=== PATIENT | female | born 1975 | race Caucasian/White ===

== ENCOUNTER → 2020-12-09 16:44 | Outpatient (BNVA) | payer BC, SELFPAY | PROVIDERS: Visit Provider Nurse Practitioner Family | DX: I25.10 Atherosclerotic heart disease of native coronary artery without angina pectoris (principal); E11.9 Type 2 diabetes mellitus without complications; Z12.39 Encounter for other screening for malignant neoplasm of breast; Z79.4 Long term (current) use of insulin; E78.5 Hyperlipidemia, unspecified; I10 Essential (primary) hypertension; Z12.31 Encounter for screening mammogram for malignant neoplasm of breast | CPT/HCPCS: 80053; 80061; 81015; 82043; 82607; 83036; 84443; 85025 ==

== ENCOUNTER 2021-01-13 12:49 | Emergency (ER) | payer BC, SELFPAY ==
[2021-01-13 12:54] VITALS: BP 157/89; PULSE 83; RESP 18; TEMP 36.9; O2SAT 98; BMI 34.7
--- NOTE | 2021-01-13 13:08 | XRR_ITS ---
PROCEDURE INFORMATION: Exam: XR Chest Exam date and time: 01/13/2021 1:22 PM Age: 45 years old Clinical indication: Chest pain; Type not specified; Prior surgery; Surgery type: Stent TECHNIQUE: Imaging protocol: XR of the chest. Views: 1 view. COMPARISON: No relevant prior studies available. FINDINGS: Lungs: Hyperinflation , without acute airspace disease. Pleural spaces: No pleural effusion. Heart/Mediastinum: Normal configuration of the heart. Bones/joints: Mild degenerative change. XR/XR chest 1V portable [id number] IMPRESSION: No acute airspace or pleural disease.
--- NOTE | 2021-01-13 13:08 | ECG_ITS ---
[facility] Test Date: 2021-01-13 Pat Name: Beata Rhodes Department: Room: Gender: Female Unit Secy: : 1975 Requested By: Jerome Soto Order Number: [id number] Srinivas MD: Noah Bond M.D. Measurements Intervals [place] Rate: 81 P: 65 MD: 147 QRS: 26 QRSD: 94 T: 70 QT: 352 QTc: 410 Interpretive Statements SINUS RHYTHM LOW QRS VOLTAGE IN PRECORDIAL LEADS [QRS DEFLECTION < 1.0 mV IN CHEST LEADS] No previous ECG available for comparison Electronically Signed On 01-13-2021 20:10:49 CDT by Noah Bond M.D. [id number]
--- NOTE | 2021-01-13 13:25 | W.ED.CHESTPA ---
HPI - Chest Pain General: Chief Complaint: Chest Pain Stated Complaint: Chest Pains Time Seen by Provider: 01/13/21 13:06 History of Present Illness: HPI narrative: 45-year-old female comes in complaining chest pain began while at rest. Began this morning around 8:00 she denies nausea vomiting or diarrhea no shortness of breath associated with it. Symptoms anything that makes it better or worse now. She had coronary artery stent placed by [facility] approximately a year and a half ago. MD complaint: chest pain Pertinent past history: coronary artery disease Onset (ago): hour(s) Timing of current episode: episodic Prior episodes: Yes Onset: during rest Pain location: substernal and left chest Pain radiation: none Severity: mild Quality: tightness and aching Relieving factors: nothing Exacerbating factors: nothing Associated symptoms: Deny abdominal pain, diaphoresis, dyspnea, fever(s), leg edema, nausea, palpitations, sense of impending doom, syncope or vomiting Treatment prior to arrival: none Review of Systems Const: Denies: fever(s) or diaphoresis ENMT: Denies: throat pain, ear or mastoid pain, nasal discharge or nasal congestion Card: Denies: palpitations or syncope Resp: Denies: dyspnea GI: Denies: abdominal pain, nausea or vomiting : Denies: flank pain, difficulty voiding, dysuria, urinary frequency or urinary urgency Skin/Breast: Denies: rash or pruritus PFSH ED PFSH: Medical History CAD (coronary artery disease) Hyperlipidemia Hypertension Surgical History Hx of section Hx of cholecystectomy (~09/2008) Hx of coronary angioplasty (~09/2019) Family History Father Diabetes Hypertension Hyperlipidemia Mother Lung disease Hypertension Denies family history of Clotting disorder Bleeding disorder Stroke Social History Smoking and tobacco status: former smoker Quit status (tobacco): has quit using tobacco Year quit tobacco: 1997 Former quit date comment: smoked 0.5 PPD x 3 yrs Second hand smoke exposure: No Alcohol intake: current Alcohol intake frequency: holidays/special occasions only Caregiver/support person: Yes Lives independently: Yes Household members: significant other Marital status: Life Partner service: No Current occupational status: unemployed History of recent travel: Yes Details: moved from [place] approx. 1 month Out of state: Yes Current gender identity: Female Special malina needs: No Agree to transfusion: Yes Physical Exam Const: COMMON NORMALS: no acute distress GENERAL APPEARANCE: cooperative and comfortable ORIENTATION/CONSCIOUSNESS: Yes awake, Yes oriented to person, Yes oriented to place and Yes oriented to time HENMT: COMMON NORMALS: normocephalic, atraumatic and hearing grossly normal bilaterally HEAD & SCALP: normocephalic and atraumatic Neck/C-Spine: COMMON NORMALS: no JVD Resp: COMMON NORMALS: normal respiratory effort, No retractions, No use of accessory muscles and clear to auscultation bilaterally AUSCULTATION: clear to auscultation bilaterally Cardio: COMMON NORMALS: no JVD, regular rate, regular rhythm and No murmurs present (Cardio) RATE: regular rate RHYTHM: regular rhythm GI: COMMON NORMALS: Soft to palpation and No hepatosplenomegaly present AUSCULTATION: Yes normoactive bowel sounds PALPATION: Yes Soft to palpation, No Tenderness to palpation present (GI), No Guarding due to palpation present (GI) and Yes No hepatosplenomegaly present Extremity: COMMON NORMALS: normal to inspection, capillary refill normal, no clubbing, cyanosis or edema, no calf tenderness and no pedal edema Neuro: SENSORIUM/ORIENTATION: Yes oriented to person, Yes oriented to place and Yes oriented to time Skin: COMMON NORMALS: no rashes or lesions noted GENERAL SKIN EXAM: no rashes or lesions noted Course Vital Signs: Vital signs: Vital Signs Temperature 98.5 F 01/13/21 12:54 Pulse Rate 74 01/13/21 15:07 Respiratory Rate 18 01/13/21 15:07 Blood Pressure 195/102 01/13/21 15:07 Pulse Oximetry 97 01/13/21 15:07 MDM - Chest Pain MDM Narrative: Medical decision making narrative: Patient had a stress test within the last year that she reports was normal. She is not having any further pain now EKGs and troponins are unremarkable we will get a go and discharge her home for blood pressure is still elevated will add isosorbide mononitrate. If she has any worsening or change symptoms return to the emergency room. She is supposed to be seeing Dr. Menon in follow-up, will have case management help expedite. Lab Data: Labs: Lab Results 01/13/21 01/13/21 01/13/21 Range/Units 13:40 13:40 13:40 WBC 7.0 (4.0-10.0) 10^3/ uL RBC 3.72 L (4.1-5.3) 10^6/u L Hgb 11.3 L (11.5-15.3) g/dL Hct 34.3 L (37.0-47.0) % MCV 92.2 (81-99) fL MCH 30.4 (28.0-34.0) pg MCHC 32.9 (30.0-36.0) g/dL RDW 11.8 L (12.1-15.1) % Plt Count 312 (130-400) 10^3/c mm MPV 10.7 H (7.4-10.4) fL Neut % (Auto) 70.7 % Lymph % (Auto) 18.3 % [place] % (Auto) 6.4 % Eos % (Auto) 3.6 % Baso % (Auto) 0.9 % Neut # (Auto) 4.96 (1.8-7.7) 10^3/u L Lymph # (Auto) 1.3 (0.8-4.8) 10^3/u L [place] # (Auto) 0.5 (0.2-0.9) 10^3/u L Eos # (Auto) 0.3 (0.0-0.8) 10^3/u L Baso # (Auto) 0.1 (0.0-0.1) 10^3/u L Nucleated RBC % (a uto) 0 % Nucleated RBCs # 0.0 /100WBC Sodium 132 L (136-145) mmol/L Potassium 4.3 (3.5-5.1) mmol/L Chloride 98 (98-107) mmol/L Carbon Dioxide 23 (22-29) mmol/L Anion Gap 15.3 (5-19) BUN 26 H (6-20) mg/dL Creatinine 1.3 H (0.5-0.9) mg/dL GFR Calculation 44.1 L (90-130) mL/min Glucose 368 H (65-115) mg/dL Calculated Osmolal ity 294 (285-295) mOsm/k g Calcium 8.6 (8.5-10.5) mg/dL Total Bilirubin 0.3 (0.15-1.2) mg/dL AST 11 (0-32) U/L ALT 13 (0-33) U/L Alkaline Phosphata se 94 (35-105) IU/L Troponin T Baselin e 22 H (0-10) ng/L Troponin T 120 Min [place] (0-10) ng/L Delta Troponin T (0-10) ABS# Total Protein 6.3 L (6.6-8.7) g/dL Albumin 3.6 (3.5-5.2) g/dL Globulin 2.7 (1.3-4.6) g/dL 01/13/21 Range/Units 15:50 WBC (4.0-10.0) 10^3/ uL RBC (4.1-5.3) 10^6/u L Hgb (11.5-15.3) g/dL Hct (37.0-47.0) % MCV (81-99) fL MCH (28.0-34.0) pg MCHC (30.0-36.0) g/dL RDW (12.1-15.1) % Plt Count (130-400) 10^3/c mm MPV (7.4-10.4) fL Neut % (Auto) % Lymph % (Auto) % [place] % (Auto) % Eos % (Auto) % Baso % (Auto) % Neut # (Auto) (1.8-7.7) 10^3/u L Lymph # (Auto) (0.8-4.8) 10^3/u L [place] # (Auto) (0.2-0.9) 10^3/u L Eos # (Auto) (0.0-0.8) 10^3/u L Baso # (Auto) (0.0-0.1) 10^3/u L Nucleated RBC % (a uto) % Nucleated RBCs # /100WBC Sodium (136-145) mmol/L Potassium (3.5-5.1) mmol/L Chloride (98-107) mmol/L Carbon Dioxide (22-29) mmol/L Anion Gap (5-19) BUN (6-20) mg/dL Creatinine (0.5-0.9) mg/dL GFR Calculation (90-130) mL/min Glucose (65-115) mg/dL Calculated Osmolal ity (285-295) mOsm/k g Calcium (8.5-10.5) mg/dL Total Bilirubin (0.15-1.2) mg/dL AST (0-32) U/L ALT (0-33) U/L Alkaline Phosphata se (35-105) IU/L Troponin T Baselin e (0-10) ng/L Troponin T 120 Min [place] 20.85 H (0-10) ng/L Delta Troponin T -1.15 L (0-10) ABS# Total Protein (6.6-8.7) g/dL Albumin (3.5-5.2) g/dL Globulin (1.3-4.6) g/dL Discharge Plan Discharge Patient Disposition: Home Clinical Impression: CAD (coronary artery disease), Type 2 diabetes mellitus Condition: Stable Prescriptions: New isosorbide mononitrate 30 mg tablet extended release 24 hr 30 mg PO DAILY Qty: 30 RF: 0 No Action Basaglar KwikPen U-100 Insulin 100 unit/mL (3 mL) insulin pen 20 unit SUBCUT BEDTIME RF: 0 insulin lispro [Admelog SoloStar U-100 Insulin] 100 unit/mL insulin pen 4 unit SUBCUT .WITH EACH MEAL RF: 0 Brilinta 90 mg tablet 90 mg PO Q12H Qty: 60 RF: 5 carvedilol [Coreg] 3.125 mg tablet 3.125 mg PO Q12H Qty: 60 RF: 5 carvedilol [Coreg] 6.25 mg tablet 6.25 mg PO Q12H Qty: 60 RF: 5 Aspir-81 81 mg Tablet,Delayed Release (Dr/Ec) 81 mg PO QAM RF: 0 atorvastatin 40 mg tablet 40 mg PO BEDTIME RF: 0 amlodipine 10 mg tablet 10 mg PO QAM RF: 0 hydrochlorothiazide 25 mg tablet 25 mg PO QAM RF: 0 lisinopril 40 mg tablet 40 mg PO QAM RF: 0 Discharge Orders: Discharge ED (Routine); Ordered 01/13/21 Ordered By: Jerome Velázquez Discharge Diet: Usual diet Discharge Activity: Limit activity as instructed Patient Instructions: Opioid Safety Activity Restrictions/Additional Instructions: His management will help you get into see Dr. Menon. 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
[2021-01-13 13:34] VITALS: BP 159/100; PULSE 84; PULSE 86; RESP 18; O2SAT 96
[2021-01-13 13:55] LABS: Basophils # 0.1 10^3/uL (0.0-0.1); Basophils % 0.9 %; Eosinophils # 0.3 10^3/uL (0.0-0.8); Eosinophils % 3.6 %; Hematocrit 34.3 % (37.0-47.0); Hemoglobin 11.3 g/dL (11.5-15.3); Lymphocytes # 1.3 10^3/uL (0.8-4.8); Lymphocytes % 18.3 %; Mean Corpuscular HGB Conc 32.9 g/dL (30.0-36.0); Mean Corpuscular Hemoglobin 30.4 pg (28.0-34.0); Mean Corpuscular Volume 92.2 fL (81-99); Mean Platelet Volume 10.7 fL (7.4-10.4); Monocytes # 0.5 10^3/uL (0.2-0.9); Monocytes % 6.4 %; Neutrophils # 4.96 10^3/uL (1.8-7.7); Neutrophils % 70.7 %; Nucleated Red Blood Cells % 0 %; Platelet Count 312 10^3/cmm (130-400); Red Blood Count 3.72 10^6/uL (4.1-5.3); Red Cell Distribution Width 11.8 % (12.1-15.1)
[2021-01-13 14:07] LABS: Alanine Aminotransferase 13 U/L (0-33); Albumin Level 3.6 g/dL (3.5-5.2); Alkaline Phosphatase 94 IU/L (35-105); Anion Gap 15.3 (5-19); Aspartate Amino Transferase 11 U/L (0-32); Blood Urea Nitrogen 26 mg/dL (6-20); Calcium 8.6 mg/dL (8.5-10.5); Carbon Dioxide 23 mmol/L (22-29); Chloride 98 mmol/L (98-107); Globulin 2.7 g/dL (1.3-4.6); Glomerular Filtration Rate 44.1 mL/min (90-130); Glucose 368 mg/dL (65-115); Osmolality Calculated 294 mOsm/kg (285-295); Potassium 4.3 mmol/L (3.5-5.1); Sodium 132 mmol/L (136-145); Total Bilirubin 0.3 mg/dL (0.15-1.2); Total Protein 6.3 g/dL (6.6-8.7); Troponin(5th) Baseline 22 ng/L (0-10)
[2021-01-13 15:07] VITALS: BP 195/102; PULSE 74; RESP 18; O2SAT 97
--- NOTE | 2021-01-13 15:08 | ECG_ITS ---
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 Measurements Intervals [place] Rate: 70 P: 47 [place]: 160 QRS: 15 QRSD: 96 T: 45 QT: 370 QTc: 400 Interpretive Statements SINUS RHYTHM LOW QRS VOLTAGE IN PRECORDIAL LEADS [QRS DEFLECTION < 1.0 mV IN CHEST LEADS] No previous ECG available for comparison Electronically Signed On 01-13-2021 20:13:54 CDT by Noah Bond M.D. [id number]
[2021-01-13 16:29] LABS: Troponin 5 2HR 20.85 ng/L (0-10)
[2021-01-13 16:44] LABS: Troponin 5 2HR Delta -1.15 ABS# (0-10)
[2021-01-13 17:14] VITALS: BP 149/101; PULSE 77; RESP 18; O2SAT 97
== END 2021-01-13 17:19 | disposition home or self-care (01) ==
PROVIDERS: Emergency Provider Family Medicine
DX: I25.10 Atherosclerotic heart disease of native coronary artery without angina pectoris (principal); E11.9 Type 2 diabetes mellitus without complications; Z79.4 Long term (current) use of insulin; Z79.82 Long term (current) use of aspirin; E78.5 Hyperlipidemia, unspecified; I10 Essential (primary) hypertension; Z98.61 Coronary angioplasty status; Z87.891 Personal history of nicotine dependence
CPT/HCPCS: 36415; 71045; 80053; 84484; 85025; 93005; 99284

== ENCOUNTER 2021-03-10 06:55 | Outpatient (CLI) | payer OTHER, BC, MEDICAID, SELFPAY ==
[2021-03-10 07:12] VITALS: BMI 40.2
--- NOTE | 2021-03-10 07:12 | ECG_ITS ---
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 Interpretive Statements NAME OF STUDY: EXERCISE SESTAMIBI STRESS TEST INDICATION: Chest Pain Baseline blood pressure of 195/92 mm Hg, heart rate of 92 beats per minute and oxygen saturation of 98%. EKG showed normal sinus rhythm, normal axis with normal ST-Ts. The patient exercised for [4 minutes and 14 seconds] on a [standard Obi protocol]. Patient attained a maximum heart rate of 164 beats per minute( [94] % of the maximum predicted heart rate) with a blood pressure at the peak exercise of 258/70 mm Hg. The EKG at the peak exercise revealed sinus tachycardia with no significant ST-T changes. Patient did not have any chest pain or any significant arrhythmis with the exercise. The study was terminated due to high blood pressure and fatigue. During the recovery phase, there were no new changes. Blood pressure at the end of the recovery phase was 183/94 mm Hg with a heart rate of 100 beats per minute and oxygen saturation of 97%. CONCLUSION: 1. Normal EKG response to treadmill exercise. 2. No exercise-induced chest pain or cardiac arrhythmia. 3. Decreased exercise tolerance, attained a maximum of 7 METs. Maximum VO2 of 24.5 ml/kg/min. 4. Baseline marked hypertension with hypertensive response to exercise. 5. Exaggerated heart rate response to exercise. 6. Perfusion scan will be documented separately. Electronically Signed On 03-13-2021 13:29:13 CDT by Naz Torres M.D. [id number]
--- NOTE | 2021-03-10 07:12 | NMCV_ITS ---
NM sanju perf SPECT r/s* [id number] Beata Rhodes Age: 45 Gender: F : 1975 Exam Date: 03/10/2021 08:09 Ordering Phys: Naz Torres MD ([email or web address]) Technologist: REGI Vargas Exam Location: [facility] Indications: CHEST PAIN STRESS TEST Please see separate stress test report in [facility] for full findings IMAGE PROTOCOL Rest/Stress 1 Exercise Day Radiopharmaceutical Dose (mCi) Administration Site Administered by Rest: Tc-99m 10.9 IV REGI Kaplan Sestamibi Stress:Tc-99m 32.9 IV REGI Kaplan Sestamibi Rest: 10-Mar-2021 60 Discovery 630 Stress: 10-Mar-2021 15 Discovery 630 Radiopharmaceutical was injected at 85 % maximum heart rate. Images obtained in supine and prone position. SPECT RESULTS Technical Quality: Excellent Raw Data Analysis: Normal Image Corrections: No attenuation or motion correction applied Summed Stress Score: 5 Summed Rest Score: 1 Summed Difference Score: 4 PERFUSION FINDINGS Small sized perfusion abnormality of mild severity of mid inferior wall with reversibility noted in basal to apical inferior bella on stress images. There is somewhat improved tracer uptake in inferior wall on prone images. FUNCTIONAL RESULTS (calculated via Gated SPECT) Stress Image LV EF (%): 70 Stress EDV (mL):97 TID: 0.86 Stress ESV (mL):29 FUNCTIONAL FINDINGS: The left ventricle is normal in size. Transient Ischemia Dilatation of 0.86. There is normal left ventricular systolic function. The left ventricular ejection fraction is normal with a value of 70%. There is normal left ventricular wall thickening with no regional wall motion abnormality. IMPRESSIONS 1. Small sized reversible perfusion abnormality of mild severity of basal to apical inferior wall with improved tracer uptake on prone images. 2. This likely represents attenuation artifact. However, small area of ischemia in right coronary artery territory cannot be completely ruled out. 3. Overall left ventricular systolic function is normal without regional wall motion abnormalities. 4. The left ventricular ejection fraction is normal with a value of 70%. 5. Normal EKG response to exercise. Baseline hypertension with hypertensive response to exercise. Refer to separate report for details. Naz Torres MD (Electronically Signed) Final Date: 13 March 2021 13:40 S
[2021-03-10 09:20] VITALS: BP 183/94; PULSE 99
== END 2021-03-10 06:56 | disposition home or self-care (01) ==
LOC: RAD 06:57 → CDL 07:14
PROVIDERS: PCP Nurse Practitioner Family; Visit Provider Internal Medicine Cardiovascular Disease
DX: R07.9 Chest pain, unspecified (principal); I10 Essential (primary) hypertension
CPT/HCPCS: 78452; 93017; A9500

== ENCOUNTER → 2021-05-12 08:57 | Outpatient (BNVA) | payer BC, MEDICAID, SELFPAY | PROVIDERS: PCP Nurse Practitioner Family; Visit Provider Family Medicine Adult Medicine | DX: E11.22 Type 2 diabetes mellitus with diabetic chronic kidney disease; I12.9 Hypertensive chronic kidney disease with stage 1 through stage 4 chronic kidney disease, or unspecified chronic kidney disease; N18.30 Chronic kidney disease, stage 3 unspecified; E11.319 Type 2 diabetes mellitus with unspecified diabetic retinopathy without macular edema; E11.65 Type 2 diabetes mellitus with hyperglycemia; I25.10 Atherosclerotic heart disease of native coronary artery without angina pectoris; E78.5 Hyperlipidemia, unspecified; H35.30 Unspecified macular degeneration; Z79.4 Long term (current) use of insulin; Z68.41 Body mass index [BMI] 40.0-44.9, adult; F17.211 Nicotine dependence, cigarettes, in remission | CPT/HCPCS: 80053; 83036 ==

== ENCOUNTER → 2021-09-09 09:32 | Outpatient (BNVA) | payer BC, MEDICAID, SELFPAY | PROVIDERS: PCP Family Medicine Adult Medicine; Visit Provider Family Medicine Adult Medicine | DX: E11.22 Type 2 diabetes mellitus with diabetic chronic kidney disease; I12.9 Hypertensive chronic kidney disease with stage 1 through stage 4 chronic kidney disease, or unspecified chronic kidney disease; N18.30 Chronic kidney disease, stage 3 unspecified; E78.5 Hyperlipidemia, unspecified; Z79.4 Long term (current) use of insulin; E11.319 Type 2 diabetes mellitus with unspecified diabetic retinopathy without macular edema; E11.65 Type 2 diabetes mellitus with hyperglycemia | CPT/HCPCS: 80053; 80061; 83036; 85025 ==

== ENCOUNTER 2022-01-09 11:50 | Emergency (ER) | payer BC, MEDICAID, SELFPAY ==
[2022-01-09 11:56] VITALS: BP 186/92; PULSE 80; RESP 16; TEMP 36.9; O2SAT 98; BMI 42.0
--- NOTE | 2022-01-09 12:02 | ECG_ITS ---
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 Measurements Intervals [place] Rate: 70 P: 56 CT: 156 QRS: 23 QRSD: 85 T: 50 QT: 365 QTc: 395 Interpretive Statements SINUS RHYTHM Compared to ECG 01/13/2021 15:35:13 No significant changes Electronically Signed On 01-09-2022 16:01:17 CDT by Noah Bond M.D. [id number]
--- NOTE | 2022-01-09 12:02 | XR_ITS ---
WS: [id number] XR chest 1V portable [id number] REASON FOR EXAM: chest pain FINDINGS: The chest is unchanged compared to 01/13/2021. The heart and mediastinum are within normal limits. Calcified granulomatous disease bilaterally. No active pulmonary parenchymal or pleural disease. Mild to moderate generalized spondylosis in the mid and lower thoracic spine. XR/XR chest 1V portable [id number] IMPRESSION: No acute chest abnormality.
[2022-01-09 12:28] VITALS: BP 143/79; PULSE 68; RESP 16; O2SAT 99
--- NOTE | 2022-01-09 12:30 | PC.NURSE ---
PATIENT PLACED ON CARDIAC MONITORING, BP, AND O2
[2022-01-09 12:31] LABS: Basophils # 0.1 10^3/uL (0.0-0.1); Basophils % 0.9 %; Eosinophils # 0.5 10^3/uL (0.0-0.8); Eosinophils % 5.1 %; Hematocrit 36.7 % (37.0-47.0); Hemoglobin 11.7 g/dL (11.5-15.3); Lymphocytes # 1.4 10^3/uL (0.8-4.8); Lymphocytes % 14.1 %; Mean Corpuscular HGB Conc 31.9 g/dL (30.0-36.0); Mean Corpuscular Hemoglobin 29.4 pg (28.0-34.0); Mean Corpuscular Volume 92.2 fl (81-99); Mean Platelet Volume 10.8 fL (7.4-10.4); Monocytes # 0.6 10^3/uL (0.2-0.9); Monocytes % 5.8 %; Neutrophils # 7.51 10^3/uL (1.8-7.7); Neutrophils % 73.8 %; Nucleated Red Blood Cells % 0 %; Platelet Count 429 10^3/cmm (130-400); Red Blood Count 3.98 10^6/uL (4.1-5.3); Red Cell Distribution Width 13.1 % (12.1-15.1); White Blood Count 10.2 10^3/uL (4.0-10.0)
--- NOTE | 2022-01-09 12:44 | ED_ITS ---
HPI - Chest Pain General: Chief Complaint: Chest Pain Stated Complaint: cp Time Seen by Provider: 01/09/22 12:11 Source: patient Mode of arrival: ambulatory Limitations: no limitations History of Present Illness: 46-year-old female presents emergency room with complaints of chest pain. Her chest pain began around 3 AM this morning while she was sleeping at rest. Sharp chest pain on the left side there is no radiation of the pain she is taken a couple of nitro one earlier this morning another late this morning for which she came in did not really noticed any pain relief with that. She has known history of heart disease previous had an angiogram with stenting in 2019 pain continues to come and go without anything that seem to aggravate or relieve it. She not had a fever no cough no shortness of breath. MD complaint: chest pain Pertinent past history: coronary artery disease Onset (ago): hour(s) Timing of current episode: episodic Onset: during rest Pain location: substernal Pain radiation: none Severity: mild Quality: aching and heaviness Relieving factors: nothing Exacerbating factors: nothing Associated symptoms: Deny abdominal pain, dyspnea, fever(s), nausea or vomiting Review of Systems Const: Denies: fever(s), chills, body aches, change in appetite, fatigue or malaise ENMT: Denies: throat pain, ear or mastoid pain, nasal discharge or nasal congestion Card: Denies: chest pain, edema, dyspnea on exertion or orthopnea Resp: Denies: dyspnea, productive cough or non-productive cough GI: Denies: abdominal pain, nausea, vomiting, hematemesis, coffee ground emesis, diarrhea, constipation, bloating, hematochezia or melena : Denies: flank pain, difficulty voiding, dysuria, urinary frequency or urinary urgency Skin/Breast: Denies: rash or pruritus PFSH ED PFSH: Medical History CAD (coronary artery disease) CKD stage 3 secondary to diabetes Diabetic retinopathy associated with uncontrolled type 2 diabetes mellitus Hyperlipidemia Hypertension Macular degeneration of both eyes Surgical History Hx of section Hx of cholecystectomy (~09/2008) Hx of coronary angioplasty (~09/2019) Family History Father Diabetes Hypertension Hyperlipidemia Mother Lung disease Hypertension Denies family history of Clotting disorder Bleeding disorder Stroke Social History Quit status (tobacco): has quit using tobacco Year quit tobacco: 1997 Former quit date comment: smoked 0.5 PPD x 3 yrs Second hand smoke exposure: No Alcohol intake: current Alcohol intake frequency: holidays/special occasions only Caregiver/support person: Yes Lives independently: Yes Household members: significant other Marital status: Life Partner Number of children: 3 Number of grandchildren: 0 service: No Current occupational status: unemployed History of recent travel: Yes Details: moved from [place] approx. 1 month Out of state: Yes Current gender identity: Female Special malina needs: No Agree to transfusion: Yes Physical Exam Const: COMMON NORMALS: no acute distress GENERAL APPEARANCE: cooperative and comfortable ORIENTATION/CONSCIOUSNESS: Yes awake, Yes oriented to person, Yes oriented to place and Yes oriented to time HENMT: COMMON NORMALS: normocephalic, atraumatic and hearing grossly normal bilaterally HEAD & SCALP: normocephalic and atraumatic Eye: COMMON NORMALS: Equal, round and reactive pupils present, EOMs intact bilaterally, conjunctivae normal and no scleral icterus CONJUNCTIVA: Yes conjunctivae normal PUPIL: Yes Equal, round and reactive pupils present Neck/C-Spine: COMMON NORMALS: full ROM, no lymphadenopathy, supple and no JVD Lymph: LYMPHATIC: no lymphadenopathy noted and no lymphedema noted Resp: COMMON NORMALS: normal respiratory effort, No retractions, No use of accessory muscles and clear to auscultation bilaterally AUSCULTATION: clear to auscultation bilaterally Cardio: COMMON NORMALS: no JVD, regular rate, regular rhythm and No murmurs present (Cardio) RATE: regular rate RHYTHM: regular rhythm GI: COMMON NORMALS: Soft to palpation and No hepatosplenomegaly present AUSCULTATION: Yes normoactive bowel sounds PALPATION: Yes Soft to palpation, No Tenderness to palpation present (GI), No Guarding due to palpation present (GI) and Yes No hepatosplenomegaly present Extremity: COMMON NORMALS: normal to inspection, capillary refill normal, no clubbing, cyanosis or edema, no calf tenderness and no pedal edema Neuro: SENSORIUM/ORIENTATION: Yes oriented to person, Yes oriented to place and Yes oriented to time Skin: COMMON NORMALS: no rashes or lesions noted GENERAL SKIN EXAM: no rashes or lesions noted Course Vital Signs: Vital signs: Vital Signs Temperature 98.4 F 01/09/22 11:56 Pulse Rate 68 01/09/22 12:28 Respiratory Rate 16 01/09/22 12:28 Blood Pressure 143/79 01/09/22 12:28 Pulse Oximetry 99 01/09/22 12:28 MDM - Chest Pain Medical Decision Making Reviewed the chart. In March of last year patient had a stress test that showed what looked like an attenuation artifact there is a comment that it could be a RCA lesion. Called and discussed with one of the special effects specialist on-call. At this point repeating stress test probably would not be helpful. The way the test result is described he felt it was most likely an attenuation artifact and initially they would treat results like this medically like to have it at this point. I had a long discussion with the patient and her if she wanted to be more aggressive recommend that we go ahead and admit to the hospital and have cardiology reevaluate and see if they feel it is appropriate to do an angiogram. The other option is to adjust medications in this case would recomm end she stop her hydrochlorothiazide and will add Imdur 30 mg daily and have her follow-up with Dr. Torres next week. The patient is not anxious for more aggressive therapy and instead chooses outpatient option discussed with her that if she has any further symptoms should return immediately. Medical Records I reviewed the patient's medical records. Lab Data I reviewed the patient's lab results. : 01/09/22 12:22 01/09/22 12:54 Radiology Impressions Chest X-Ray 01/09/22 12:02 IMPRESSION: No acute chest abnormality. Laboratory Results WBC 10.2 10^3/uL (4.0-10.0) H 01/09/22 12:22 RBC 3.98 10^6/uL (4.1-5.3) L 01/09/22 12:22 Hgb 11.7 g/dL (11.5-15.3) 01/09/22 12:22 Hct 36.7 % (37.0-47.0) L 01/09/22 12:22 MCV 92.2 fl (81-99) 01/09/22 12:22 MCH 29.4 pg (28.0-34.0) 01/09/22 12:22 MCHC 31.9 g/dL (30.0-36.0) 01/09/22 12:22 RDW 13.1 % (12.1-15.1) 01/09/22 12:22 Plt Count 429 10^3/cmm (130-400) H 01/09/22 12:22 MPV 10.8 fL (7.4-10.4) H 01/09/22 12:22 Neut % (Auto) 73.8 % 01/09/22 12:22 Lymph % (Auto) 14.1 % 01/09/22 12:22 [place] % (Auto) 5.8 % 01/09/22 12: Eos % (Auto) 5.1 % 01/09/22 12:22 Baso % (Auto) 0.9 % 01/09/22 12:22 Neut # (Auto) 7.51 10^3/uL (1.8-7.7) 01/09/22 12:22 Lymph # (Auto) 1.4 10^3/uL (0.8-4.8) 01/09/22 12:22 [place] # (Auto) 0.6 10^3/uL (0.2-0.9) 01/09/22 12:22 Eos # (Auto) 0.5 10^3/uL (0.0-0.8) 01/09/22 12:22 Baso # (Auto) 0.1 10^3/uL (0.0-0.1) 01/09/22 12:22 Nucleated RBC % (auto) 0 % 01/09/22 12:22 Nucleated RBCs # 0.0 /100WBC 01/09/22 12:22 Sodium 135 mmol/L (136-145) L 01/09/22 12:54 Potassium 4.4 mmol/L (3.5-5.1) 01/09/22 12:54 Chloride 105 mmol/L (98-107) 01/09/22 12:54 Carbon Dioxide 18 mmol/L (22-29) L 01/09/22 12:54 Anion Gap 16.4 (5-19) 01/09/22 12:54 BUN 26 mg/dL (6-20) H 01/09/22 12:54 Creatinine 1.4 mg/dL (0.5-0.9) H 01/09/22 12:54 GFR Calculation 40.3 mL/min (90-130) L 01/09/22 12:54 Glucose 182 mg/dL (65-115) H 01/09/22 12:54 Calculated Osmolality 289 mOsm/kg (285-295) 01/09/22 12:54 Calcium 9.4 mg/dL (8.5-10.5) 01/09/22 12:54 Total Bilirubin 0.3 mg/dL (0.15-1.2) 01/09/22 12:54 AST 22 U/L (0-32) 01/09/22 12:54 ALT 26 U/L (0-33) 01/09/22 12:54 Alkaline Phosphatase 124 IU/L (35-105) H 01/09/22 12:54 Troponin T Baseline 16 ng/L (0-10) H 01/09/22 12:54 Troponin T 120 Minute 15.50 ng/L (0-10) H 01/09/22 15:24 Delta Troponin T -0.50 ABS# (0-10) L 01/09/22 15:24 NT-Pro-B Natriuret Pep 277 pg/mL (0-125) H 01/09/22 12:54 Total Protein 6.6 g/dL (6.6-8.7) 01/09/22 12:54 Albumin 3.6 g/dL (3.5-5.2) 01/09/22 12:54 Globulin 3.0 g/dL (1.3-4.6) 01/09/22 12:54 Lipase 62 U/L (13-60) H 01/09/22 12:54 Discharge Plan Discharge Patient Disposition: Home Clinical Impression: Chest pain, CAD (coronary artery disease), CKD stage 3 secondary to diabetes, Type 2 diabetes mellitus, Hyperlipidemia, Hypertension Condition: Stable Prescriptions: New isosorbide mononitrate 30 mg tablet extended release 24 hr 30 mg PO DAILY Qty: 30 0RF Discontinued hydrochlorothiazide 50 mg tablet 50 mg PO QAM Qty: 90 3RF No Action nitroglycerin [Nitrostat] 0.4 mg tablet, sublingual 0.4 mg sublingual Q5M PRN (Reason: chest pain) Qty: 30 6RF Rx Instructions: do not exceed 3 doses per episode atorvastatin 40 mg tablet 40 mg PO BEDTIME Qty: 30 5RF aspirin 81 mg tablet,delayed release (DR/EC) 81 mg PO QAM Qty: 30 5RF (DME) pen needle, diabetic [Pen Needle] 31 gauge x 5/16 needle See Rx Instructions .ROUTE .MEDSUPPLY Qty: 1200 0RF Rx Instructions: As directed carvedilol 12.5 mg tablet 12.5 mg PO BID Qty: 60 5RF Rx Instructions: must administer with a meal/food insulin aspart U-100 [Novolog Flexpen U-100 Insulin] 100 unit/mL (3 mL) in sulin pen 5 unit SUBCUT TID 90 Days Qty: 15 0RF amlodipine 10 mg tablet 10 mg PO DAILY 90 Days Qty: 90 3RF lisinopril 40 mg tablet 40 mg PO DAILY 90 Days Qty: 90 3RF Brilinta 90 mg tablet 90 mg PO Q12H Qty: 60 5RF Lantus Solostar U-100 Insulin 100 unit/mL (3 mL) insulin pen See Rx Instructions .ROUTE .COMPLEX Qty: 15 2RF Dose Instruction: INJECT 20 UNITS SUBCUTANEOUSLY ONCE DAILY AT BEDTIME Rx Instructions: INJECT 20 UNITS SUBCUTANEOUSLY ONCE DAILY AT BEDTIME metformin 500 mg tablet 500 mg PO BID 0RF Multivitamin Gummies 200 mcg Tablet,Chewable 1 tab PO DAILY 0RF Discharge Orders: Discharge ED (Routine); Ordered 01/09/22 Ordered By: Jerome Velázquez Referrals: Trenton De Jesus MD [Primary Care Provider] - Patient Instructions: Opioid Safety Activity Restrictions/Additional Instructions: Stop hydrochlorothiazide. Start isosorbide mononitrate once daily. Follow-up with Dr. Torres as soon as you are able next week. If you have recurrent chest pain return immediately to the emergency room. Coding Level of Care Code ED Production Planning Supervisor for Tonya Patel Exam Comprehensive
[2022-01-09 13:18] LABS: Troponin(5th) Baseline 16 ng/L (0-10)
[2022-01-09 13:34] LABS: Alanine Aminotransferase 26 U/L (0-33); Albumin Level 3.6 g/dL (3.5-5.2); Alkaline Phosphatase 124 IU/L (35-105); Anion Gap 16.4 (5-19); Aspartate Amino Transferase 22 U/L (0-32); Blood Urea Nitrogen 26 mg/dL (6-20); Calcium 9.4 mg/dL (8.5-10.5); Carbon Dioxide 18 mmol/L (22-29); Chloride 105 mmol/L (98-107); Glomerular Filtration Rate 40.3 mL/min (90-130); Glucose 182 mg/dL (65-115); Lipase 62 U/L (13-60); NT Pro B Type Natriuretic Pept 277 pg/mL (0-125); Osmolality Calculated 289 mOsm/kg (285-295); Potassium 4.4 mmol/L (3.5-5.1); Sodium 135 mmol/L (136-145); Total Bilirubin 0.3 mg/dL (0.15-1.2); Total Protein 6.6 g/dL (6.6-8.7)
--- NOTE | 2022-01-09 14:02 | ECG_ITS ---
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 Measurements Intervals [place] Rate: 67 P: 65 AR: 156 QRS: 7 QRSD: 95 T: 49 QT: 383 QTc: 405 Interpretive Statements SINUS RHYTHM Compared to ECG 01/09/2022 12:07:51 No significant changes Electronically Signed On 01-09-2022 16:05:54 CDT by Noah Bond M.D. [id number]
== END 2022-01-09 17:43 | disposition home or self-care (01) ==
PROVIDERS: Emergency Medicine; Emergency Provider Family Medicine; PCP Family Medicine Adult Medicine
DX: R07.9 Chest pain, unspecified (principal); I25.10 Atherosclerotic heart disease of native coronary artery without angina pectoris; N18.30 Chronic kidney disease, stage 3 unspecified; E11.9 Type 2 diabetes mellitus without complications; E78.5 Hyperlipidemia, unspecified; I10 Essential (primary) hypertension; Z87.891 Personal history of nicotine dependence
CPT/HCPCS: 36415; 71045; 80053; 83690; 83880; 84484; 85025; 93005; 99283

== ENCOUNTER → 2022-02-05 14:27 | Outpatient (BNVA) | payer BC, MEDICAID, SELFPAY | PROVIDERS: PCP Family Medicine Adult Medicine; Visit Provider Internal Medicine Cardiovascular Disease | DX: I25.10 Atherosclerotic heart disease of native coronary artery without angina pectoris (principal); I10 Essential (primary) hypertension; Z87.891 Personal history of nicotine dependence | CPT/HCPCS: 99214 ==

== ENCOUNTER 2022-04-16 16:20 | Emergency (ER) | payer BC, MEDICAID, SELFPAY ==
[2022-04-16 16:33] VITALS: BP 162/99; PULSE 73; RESP 16; TEMP 37; O2SAT 98
--- NOTE | 2022-04-16 17:43 | XRR_ITS ---
PROCEDURE INFORMATION: Exam: XR Chest Exam date and time: 04/16/2022 5:57 PM Age: 46 years old Clinical indication: Chest wall pain; Additional info: Chest pain TECHNIQUE: Imaging protocol: Radiologic exam of the chest. Views: 1 view. COMPARISON: CR XR chest 1V portable [id number] 01/09/2022 12:25 PM FINDINGS: Lungs: Unremarkable. No consolidation. Pleural spaces: Unremarkable. No pleural effusion. No pneumothorax. Heart/Mediastinum: Unremarkable. No cardiomegaly. Bones/joints: Mild leftward thoracic curvature. XR/XR chest 1V portable [id number] IMPRESSION: No acute finding.
--- NOTE | 2022-04-16 17:44 | ECG_ITS ---
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 Measurements Intervals [place] Rate: 70 P: 69 MI: 147 QRS: 32 QRSD: 90 T: 57 QT: 389 QTc: 420 Interpretive Statements SINUS RHYTHM Compared to ECG 01/09/2022 14:33:49 No significant changes Electronically Signed On 04-17-2022 17:09:54 CDT by Pavan Menon M.D. [email or web address] [email or web address] centerL[facility] [id number]
--- NOTE | 2022-04-16 18:04 | W.ED.CHESTPA ---
HPI - Chest Pain General: Chief Complaint: Chest Pain Stated Complaint: Chest Pain Time Seen by Provider: 04/16/22 17:42 Source: patient Mode of arrival: ambulatory Limitations: no limitations History of Present Illness: 46-year-old female states she started having some left-sided shoulder pain along with some fatigue last night. She states she is continue to have some pain she rates a 1-2 out of 10 she denies the pain being severe denies any radiation denies any shortness of breath. States she has had a history of heart disease in 1 to make sure her heart was okay. Associated symptoms: Deny abdominal pain, dyspnea, fever(s), nausea or vomiting Review of Systems Const: Denies: fever(s), chills, body aches or change in appetite Eyes: Denies: blurry vision or eye discomfort ENMT: Denies: throat pain or dental pain Card: Denies: chest pain Resp: Denies: dyspnea GI: Denies: abdominal pain, nausea, vomiting or diarrhea : Denies: dysuria Musc: Denies: neck pain or back pain Skin/Breast: Denies: rash Neuro: Denies: headache(s) Psych: Denies: depression Adan/Lymph: Denies: easy bruising All/Imm: Denies: urticaria PFSH ED PFSH: Medical History CAD (coronary artery disease) CKD stage 3 secondary to diabetes Diabetic retinopathy associated with uncontrolled type 2 diabetes mellitus Hyperlipidemia Hypertension Macular degeneration of both eyes Surgical History Hx of section Hx of cholecystectomy (~09/2008) Hx of coronary angioplasty (~09/2019) Family History Father Diabetes Hypertension Hyperlipidemia Mother Lung disease Hypertension Denies family history of Clotting disorder Bleeding disorder Stroke Social History Smoking and tobacco status: former smoker Quit status (tobacco): has quit using tobacco Year quit tobacco: 1997 Former quit date comment: smoked 0.5 PPD x 3 yrs Second hand smoke exposure: No Alcohol intake: current Alcohol intake frequency: holidays/special occasions only Caregiver/support person: Yes Lives independently: Yes Household members: significant other Marital status: Life Partner Number of children: 3 Number of grandchildren: 0 service: No Current occupational status: unemployed History of recent travel: Yes Details: moved from [place] approx. 1 month Out of state: Yes Current gender identity: Female Special malina needs: No Agree to transfusion: Yes Physical Exam Const: COMMON NORMALS: no acute distress, patient oriented x3 and healthy appearing HENMT: COMMON NORMALS: normocephalic and atraumatic HEAD & SCALP: normocephalic and atraumatic Eye: COMMON NORMALS: Equal, round and reactive pupils present and EOMs intact bilaterally PUPIL: Yes Equal, round and reactive pupils present Neck/C-Spine: COMMON NORMALS: full ROM and supple Chest: COMMONS NORMALS: normal inspection of the chest and normal palpation of entire chest wall Resp: COMMON NORMALS: normal respiratory effort, No retractions, No use of accessory muscles and clear to auscultation bilaterally AUSCULTATION: clear to auscultation bilaterally Cardio: COMMON NORMALS: regular rate, regular rhythm and No murmurs present (Cardio) RATE: regular rate RHYTHM: regular rhythm GI: COMMON NORMALS: Normal to inspection, nondistended, normoactive bowel sounds present, Soft to palpation, non-tender and no masses PALPATION: Yes Soft to palpation Extremity: COMMON NORMALS: normal to inspection and full ROM Neuro: COMMON NORMALS: patient oriented x3, moves all extremities and no focal motor deficits Psych: COMMON NORMALS: mental status grossly normal, Normal thought process present and cooperative THOUGHT PROCESS: Normal thought process present Skin: COMMON NORMALS: no rashes or lesions noted and no wounds GENERAL SKIN EXAM: no rashes or lesions noted Course Vital Signs: Vital signs: Vital Signs Temperature 98.6 F 04/16/22 16:33 Pulse Rate 72 04/16/22 20:54 Respiratory Rate 20 H 04/16/22 20:54 Blood Pressure 165/90 04/16/22 20:54 Pulse Oximetry 98 04/16/22 20:54 MDM - Chest Pain Medical Decision Making Patient presents here with chest pains atypical in nature her troponins here are normal she feels improved I feel she stable for discharge she is to follow-up with her strategy execution consultant outpatient return if worsening she understands and agrees to plan. Lab Data : 04/16/22 17:50 04/16/22 17:50 Radiology Impressions Chest X-Ray 04/16/22 17:43 IMPRESSION: No acute finding. Laboratory Results WBC 8.6 10^3/uL (4.0-10.0) 04/16/22 17:50 RBC 3.98 10^6/uL (4.1-5.3) L 04/16/22 17:50 Hgb 11.7 g/dL (11.5-15.3) 04/16/22 17:50 Hct 35.5 % (37.0-47.0) L 04/16/22 17:50 MCV 89.2 fl (81-99) 04/16/22 17:50 MCH 29.4 pg (28.0-34.0) 04/16/22 17:50 MCHC 33.0 g/dL (30.0-36.0) 04/16/22 17:50 RDW 12.9 % (12.1-15.1) 04/16/22 17:50 Plt Count 370 10^3/cmm (130-400) 04/16/22 17:50 MPV 10.8 fL (7.4-10.4) H 04/16/22 17:50 Neut % (Auto) 71.9 % 04/16/22 17:50 Lymph % (Auto) 17.4 % 04/16/22 17:50 [place] % (Auto) 7.1 % 04/16/22 17:50 Eos % (Auto) 2.8 % 04/16/22 17:50 Baso % (Auto) 0.6 % 04/16/22 17:50 Neut # (Auto) 6.18 10^3/uL (1.8-7.7) 04/16/22 17:50 Lymph # (Auto) 1.5 10^3/uL (0.8-4.8) 04/16/22 17:50 [place] # (Auto) 0.6 10^3/uL (0.2-0.9) 04/16/22 17:50 Eos # (Auto) 0.2 10^3/uL (0.0-0.8) 04/16/22 17:50 Baso # (Auto) 0.1 10^3/uL (0.0-0.1) 04/16/22 17:50 Nucleated RBC % (auto) 0 % 04/16/22 17:50 Nucleated RBCs # 0.0 /100WBC 04/16/22 17:50 Sodium 133 mmol/L (136-145) L 04/16/22 17:50 Potassium 5.2 mmol/L (3.5-5.1) H 04/16/22 17:50 Chloride 101 mmol/L (98-107) 04/16/22 17:50 Carbon Dioxide 19 mmol/L (22-29) L 04/16/22 17:50 Anion Gap 18.2 (5-19) 04/16/22 17:50 BUN 19 mg/dL (6-20) 04/16/22 17:50 Creatinine 1.4 mg/dL (0.5-0.9) H 04/16/22 17:50 GFR Calculation 40.3 mL/min (90-130) L 04/16/22 17:50 Glucose 187 mg/dL (65-115) H 04/16/22 17:50 Calculated Osmolality 283 mOsm/kg (285-295) L 04/16/22 17:50 Calcium 8.8 mg/dL (8.5-10.5) 04/16/22 17:50 Total Bilirubin 0.3 mg/dL (0.15-1.2) 04/16/22 17:50 AST 16 U/L (0-32) 04/16/22 17:50 ALT 12 U/L (0-33) 04/16/22 17:50 Alkaline Phosphatase 106 IU/L (35-105) H 04/16/22 17:50 Troponin T Baseline 16 ng/L (0-10) H 04/16/22 17:50 Troponin T 120 Minute 14.10 ng/L (0-10) H 04/16/22 20:02 Delta Troponin T -1.90 ABS# (0-10) L 04/16/22 20:02 Total Protein 7.4 g/dL (6.6-8.7) 04/16/22 17:50 Albumin 3.9 g/dL (3.5-5.2) 04/16/22 17:50 Globulin 3.5 g/dL (1.3-4.6) 04/16/22 17:50 EKG Data EKG 1: I personally reviewed and interpreted this EKG as follows: EKG interpretation date: 04/16/22 EKG interpretation time: 17:29 Interpretation: nsr hr [address] or t wave abnormalities qrs 90 qtc 409 EKG 2: I personally reviewed and interpreted this EKG as follows: EKG interpretation date: 04/16/22 EKG interpretation time: 19:35 Interpretation: nsr hr [address] or t wave abnormalities qrs 85 qtc 388 Discharge Plan Discharge Patient Disposition: Home Clinical Impression: Chest pain Condition: Stable Prescriptions: No Action nitroglycerin [Nitrostat] 0.4 mg tablet, sublingual 0.4 mg sublingual Q5M PRN (Reason: chest pain) Qty: 30 6RF Rx Instructions: do not exceed 3 doses per episode aspirin 81 mg tablet,delayed release (DR/EC) 81 mg PO QAM Qty: 30 5RF (DME) pen needle, diabetic [Pen Needle] 31 gauge x 5/16 needle See Rx Instructions .ROUTE .MEDSUPPLY Qty: 1200 0RF Rx Instructions: As directed carvedilol 12.5 mg tablet 12.5 mg PO BID Qty: 60 5RF Rx Instructions: must administer with a meal/food isosorbide mononitrate 60 mg tablet extended release 24 hr 60 mg PO .COMPLEX Qty: 135 2RF Rx Instructions: 60 mg PO Take 1 in the morning and 1/2 tab in the evening; Take insulin aspart U-100 [Novolog Flexpen U-100 Insulin] 100 unit/mL (3 mL) insulin pen 5 unit SUBCUT TID 90 Days Qty: 15 0RF amlodipine 10 mg tablet 10 mg PO DAILY 90 Days Qty: 90 3RF lisinopril 40 mg tablet 40 mg PO DAILY 90 Days Qty: 90 3RF Brilinta 90 mg tablet 90 mg PO Q12H Qty: 60 5RF Lantus Solostar U-100 Insulin 100 unit/mL (3 mL) insulin pen See Rx Instructions .ROUTE .COMPLEX Qty: 15 2RF Dose Instruction: INJECT 20 UNITS SUBCUTANEOUSLY ONCE DAILY AT BEDTIME Rx Instructions: INJECT 20 UNITS SUBCUTANEOUSLY ONCE DAILY AT BEDTIME atorvastatin 40 mg tablet 40 mg PO BEDTIME Qty: 30 5RF metformin 500 mg tablet 500 mg PO BID 0RF Multivitamin Gummies 200 mcg Tablet,Chewable 1 tab PO DAILY 0RF Discharge Orders: Discharge ED (Routine); Ordered 04/16/22 Ordered By: Pa Reyes Referrals: Trenton De Jesus MD [Primary Care Provider] - Discharge Diet: Advance as tolerated Discharge Activity: Resume usual activity Patient Instructions: Chest Pain (ED) Coding Level of Care Code ED Motor Equipment Sergeant for Chg Fwd Exam Comprehensive
[2022-04-16 18:05] LABS: Basophils # 0.1 10^3/uL (0.0-0.1); Basophils % 0.6 %; Eosinophils # 0.2 10^3/uL (0.0-0.8); Eosinophils % 2.8 %; Hematocrit 35.5 % (37.0-47.0); Hemoglobin 11.7 g/dL (11.5-15.3); Lymphocytes # 1.5 10^3/uL (0.8-4.8); Lymphocytes % 17.4 %; Mean Corpuscular Hemoglobin 29.4 pg (28.0-34.0); Mean Corpuscular Volume 89.2 fl (81-99); Mean Platelet Volume 10.8 fL (7.4-10.4); Monocytes # 0.6 10^3/uL (0.2-0.9); Monocytes % 7.1 %; Neutrophils # 6.18 10^3/uL (1.8-7.7); Neutrophils % 71.9 %; Nucleated Red Blood Cells % 0 %; Platelet Count 370 10^3/cmm (130-400); Red Blood Count 3.98 10^6/uL (4.1-5.3); Red Cell Distribution Width 12.9 % (12.1-15.1); White Blood Count 8.6 10^3/uL (4.0-10.0)
[2022-04-16 18:15] VITALS: BP 167/80; PULSE 65; RESP 15; O2SAT 97
[2022-04-16] MEDS: aspirin 81 mg Chew Tablet 324 MG PO (18:19)
[2022-04-16 18:34] LABS: Troponin(5th) Baseline 16 ng/L (0-10)
[2022-04-16 18:36] LABS: Alanine Aminotransferase 12 U/L (0-33); Albumin Level 3.9 g/dL (3.5-5.2); Alkaline Phosphatase 106 IU/L (35-105); Blood Urea Nitrogen 19 mg/dL (6-20); Calcium 8.8 mg/dL (8.5-10.5); Carbon Dioxide 19 mmol/L (22-29); Chloride 101 mmol/L (98-107); Globulin 3.5 g/dL (1.3-4.6); Glomerular Filtration Rate 40.3 mL/min (90-130); Glucose 187 mg/dL (65-115); Osmolality Calculated 283 mOsm/kg (285-295); Sodium 133 mmol/L (136-145); Total Bilirubin 0.3 mg/dL (0.15-1.2); Total Protein 7.4 g/dL (6.6-8.7)
[2022-04-16 18:37] LABS: Anion Gap 18.2 (5-19); Aspartate Amino Transferase 16 U/L (0-32); Potassium 5.2 mmol/L (3.5-5.1)
--- NOTE | 2022-04-16 19:44 | ECG_ITS ---
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 Measurements Intervals [place] Rate: 66 P: 56 SC: 143 QRS: 8 QRSD: 85 T: 30 QT: 375 QTc: 393 Interpretive Statements SINUS RHYTHM Compared to ECG 01/09/2022 14:33:49 No significant changes Electronically Signed On 04-17-2022 17:15:56 CDT by Pavan Menon M.D. [id number]
[2022-04-16 20:54] VITALS: BP 165/90; PULSE 72; RESP 20; O2SAT 98
[2022-04-16 21:10] VITALS: BP 168/99; PULSE 79; RESP 19; O2SAT 99
== END 2022-04-16 21:12 | disposition home or self-care (01) ==
PROVIDERS: Family Medicine; Emergency Provider Emergency Medicine; PCP Family Medicine Adult Medicine
DX: R07.9 Chest pain, unspecified (principal); Z79.82 Long term (current) use of aspirin; Z79.84 Long term (current) use of oral hypoglycemic drugs; Z79.4 Long term (current) use of insulin; I25.10 Atherosclerotic heart disease of native coronary artery without angina pectoris; I12.9 Hypertensive chronic kidney disease with stage 1 through stage 4 chronic kidney disease, or unspecified chronic kidney disease; E11.22 Type 2 diabetes mellitus with diabetic chronic kidney disease; N18.30 Chronic kidney disease, stage 3 unspecified; E78.5 Hyperlipidemia, unspecified; Z87.891 Personal history of nicotine dependence
CPT/HCPCS: 71045; 80053; 84484; 85025; 93005; 99285

== ENCOUNTER → 2022-06-03 09:45 | Outpatient (BNVA) | payer BC, MEDICAID, SELFPAY | PROVIDERS: PCP Family Medicine Adult Medicine; Visit Provider Family Medicine Adult Medicine | DX: E11.22 Type 2 diabetes mellitus with diabetic chronic kidney disease (principal); N18.30 Chronic kidney disease, stage 3 unspecified; I12.9 Hypertensive chronic kidney disease with stage 1 through stage 4 chronic kidney disease, or unspecified chronic kidney disease; E78.5 Hyperlipidemia, unspecified; E11.319 Type 2 diabetes mellitus with unspecified diabetic retinopathy without macular edema; E11.65 Type 2 diabetes mellitus with hyperglycemia | CPT/HCPCS: 80053; 80061; 83036 ==

== ENCOUNTER 2022-07-18 14:12 | Emergency (ER) | payer BC, MEDICAID, SELFPAY ==
[2022-07-18 14:22] VITALS: BP 183/108; PULSE 79; RESP 18; O2SAT 99; BMI 40.2
--- NOTE | 2022-07-18 14:29 | XRR_ITS ---
PROCEDURE INFORMATION: Exam: XR Left Ankle Exam date and time: 07/18/2022 3:29 PM Age: 46 years old Clinical indication: Injury or trauma; Fall; Blunt trauma; Ankle; Left TECHNIQUE: Imaging protocol: Radiologic exam of the Left ankle. Views: 3 or more views. COMPARISON: No relevant prior studies available. FINDINGS: Bones/joints: Osseous structures are intact. Negative for fracture. Joint spaces are preserved. Soft tissues: Normal. XR/XR ankle LT min 3V* [id number] IMPRESSION: No acute findings.
--- NOTE | 2022-07-18 15:29 | XRR_ITS ---
PROCEDURE INFORMATION: Exam: XR Left Foot Exam date and time: 07/18/2022 3:33 PM Age: 46 years old Clinical indication: Injury or trauma; Fall; Blunt trauma; Foot; Left; Additional info: Pain TECHNIQUE: Imaging protocol: Radiologic exam of the Left foot. Views: 1 or 2 views. COMPARISON: CR (LOW EXM, ) 07/18/2022 3:29 PM FINDINGS: Bones/joints: Osseous structures are intact. Negative for fracture. Joint spaces are preserved. Soft tissues: Normal. XR/XR foot LT 2V [id number] IMPRESSION: No acute findings.
--- NOTE | 2022-07-18 16:11 | ED_ITS ---
HPI - Extremity Problem General: Chief complaint: Extremity Injury, Lower Stated complaint: Left ankle injury Time Seen by Provider: 07/18/22 16:11 History of Present Illness: 46-year-old female comes in today for evaluation of injury to the left ankle. Patient injured the ankle last Wednesday. Patient has continued swelling and bruising to the ankle and she was concerned that there may be a fracture. Patient appears nontoxic. Patient appears in mild to moderate pain. Associated symptoms: Deny chest pain Review of Systems General: Reports: 10 or more systems reviewed and unremarkable except in HPI and below Card: Denies: chest pain Resp: Denies: productive cough GI: Denies: vomiting Musc: Reports: extremity pain and extremity swelling PFS ED PFSH: Medical History CAD (coronary artery disease) CKD stage 3 secondary to diabetes Diabetic retinopathy associated with uncontrolled type 2 diabetes mellitus Hyperlipidemia Hypertension Macular degeneration of both eyes Surgical History Hx of section Hx of cholecystectomy (~09/2008) Hx of coronary angioplasty (~09/2019) Family History (Updated 06/03/22 @ 08:23 by Xiomara Richardson LPN) Father Diabetes Hypertension Hyperlipidemia CHF (congestive heart failure) Mother Lung disease asthma and due to copd Hypertension Denies family history of CAD (coronary artery disease) Clotting disorder Dementia Anesthesia complication Bleeding disorder Cancer Stroke Social History (Updated 06/03/22 @ 08:24 by Xiomara Richardson LPN) Smoking and tobacco status: never smoked Quit status (tobacco): has quit using tobacco Year quit tobacco: 1997 Former quit date comment: smoked 0.5 PPD x 3 yrs Second hand smoke exposure: No Alcohol intake: never Caregiver/support person: Yes Lives independently: Yes Household members: significant other Marital status: Life Partner Number of children: 3 Number of grandchildren: 0 Highest education level completed: High School Graduate service: No Current occupational status: unemployed Pets and animals: No History of recent travel: No Current gender identity: Female Kalyani/Rastafarian: None Special kalyani needs: No Agree to transfusion: Yes Female Reproductive History: Spontaneous abortions: No Physical Exam Const: COMMON NORMALS: alert HENMT: COMMON NORMALS: normocephalic HEAD & SCALP: normocephalic Neck/C-Spine: COMMON NORMALS: full ROM Resp: COMMON NORMALS: normal respiratory effort Cardio: COMMON NORMALS: regular rate RATE: regular rate GI: COMMON NORMALS: non-tender Extremity: LEFT LOWER EXTREMITY: Yes ankle joint (Medial swelling with ecchymosis) Left ankle: Yes inspection, Yes palpation and Yes ROM and Yes foot & digits (Swollen foot with ecchymosis on the medial aspect.) Left foot and digits: Yes inspection, Yes palpation and Yes ROM Neuro: SENSORIUM/ORIENTATION: Yes alert Skin: COMMON NORMALS: turgor normal GENERAL SKIN EXAM: turgor normal Course Vital Signs: Vital signs: Vital Signs Pulse Rate 79 07/18/22 14:22 Respiratory Rate 18 07/18/22 14:22 Blood Pressure 183/108 07/18/22 14:22 Pulse Oximetry 99 07/18/22 14:22 Oxygen Delivery Me thod 07/18/22 14:22 MDM - Extremity (Nontraumatic) Medical Decision Making 46-year-old female comes in today for complaints of injury to the left ankle and foot. 1 week ago patient had twisted her foot. Patient reports persistent swelling and ecchymosis to the foot. Patient denies any calf or posterior knee pain. Patient has normal range of motion except of the ankle due to swelling and pain. Pulses are intact. Sensation is intact. Differential diagnosis includes but not limited to fracture, sprain, DVT. No signs of DVT are noted at this time. Discussed with patient the red flags for DVT including calf pain and posterior knee pain along with increasing pain and swelling. Patient reported understanding and agreed to plan for treatment of ankle sprain after x-rays noted no fracture or dislocation. Lab Data Radiology Impressions Ankle X-Ray 07/18/22 14:29 IMPRESSION: No acute findings. Foot X-Ray 07/18/22 15:29 IMPRESSION: No acute findings. Discharge Plan Discharge Patient Disposition: Home Clinical Impression: Ankle sprain and strain Condition: Stable Prescriptions: New hydrocodone-acetaminophen 5-325 mg tablet 1 tab PO Q8H PRN (Reason: pain (scale score 7-10)) Qty: 7 0RF No Action amlodipine 10 mg tablet 10 mg PO DAILY 90 Days Qty: 90 3RF aspirin 81 mg tablet,delayed release (DR/EC) 81 mg PO QAM Qty: 30 5RF carvedilol 12.5 mg tablet 12.5 mg PO BID Qty: 60 5RF Lantus Solostar U-100 Insulin 100 unit/mL (3 mL) insulin pen See Rx Instructions .ROUTE .COMPLEX Qty: 15 5RF Dose Instruction: INJECT 20 UNITS SUBCUTANEOUSLY ONCE DAILY AT BEDTIME Rx Instructions: INJECT 20 UNITS SUBCUTANEOUSLY ONCE DAILY AT BEDTIME insulin aspart U-100 [Novolog Flexpen U-100 Insulin] 100 unit/mL (3 mL) insulin pen 5 unit SUBCUT TID 90 Days Qty: 15 5RF nitroglycerin [Nitrostat] 0.4 mg tablet, sublingual 0.4 mg sublingual Q5M PRN (Reason: chest pain) Qty: 30 6RF Rx Instructions: do not exceed 3 doses per episode Brilinta 90 mg tablet 90 mg PO Q12H Qty: 60 5RF isosorbide mononitrate 60 mg tablet extended release 24 hr 60 mg PO DAILY Qty: 30 5RF (DME) glucose test strips See Rx Instructions .Route .MEDSUPPLY Qty: 1 11RF Rx Instructions: As directed for checking glucose levels lisinopril 40 mg tablet 40 mg PO DAILY 90 Days Qty: 90 3RF atorvastatin 40 mg tablet 40 mg PO BEDTIME Qty: 30 5RF metformin 500 mg tablet See Rx Instructions .ROUTE .COMPLEX Qty: 60 5RF Dose Instruction: Take 1 tablet by mouth twice daily Rx Instructions: Take 1 tablet by mouth twice daily (DME) One touch Ultra 2 test strips See Rx Instructions .Route .MEDSUPPLY Qty: 1 11RF Rx Instructions: As directed (DME) pen needle, diabetic [Pen Needle] 31 gauge x 5/16 needle See Rx Instructions .ROUTE .MEDSUPPLY Qty: 1200 0RF Rx Instructions: As directed Multivitamin Gummies 200 mcg Tablet,Chewable 1 tab PO DAILY Discharge Orders: Discharge ED (Routine); Ordered 07/18/22 Ordered By: Fritz Winchester Referrals: Trenton De Jesus MD [Primary Care Provider] - Discharge Diet: Usual diet Discharge Activity: Increase activity as tolerated Patient Instructions: Ankle Sprain (ED), Opioid Safety Activity Restrictions/Additional Instructions: Elastic bandage until swelling improves. Use crutches until he can bear weight comfortably. Elevate foot is much as possible until swelling improves. Increase activity as tolerated. Follow-up with primary care as needed. Return to ER for calf pain or behind the knee pain or increasing redness and swelling to the lower extremity, or new concerns. Coding Level of Care Code ED Secondary English Teacher for Tonya Patel
[2022-07-18] MEDS: HYDROcodone-acetaminophen 5-325 mg Tablet 1 TAB PO (16:58)
== END 2022-07-18 17:00 | disposition home or self-care (01) ==
PROVIDERS: Emergency Provider Nurse Practitioner Family; PCP Family Medicine Adult Medicine
DX: S93.402A Sprain of unspecified ligament of left ankle, initial encounter (principal); S96.912A Strain of unspecified muscle and tendon at ankle and foot level, left foot, initial encounter; Z79.84 Long term (current) use of oral hypoglycemic drugs; Z79.82 Long term (current) use of aspirin; Z79.4 Long term (current) use of insulin; Z87.891 Personal history of nicotine dependence; I25.10 Atherosclerotic heart disease of native coronary artery without angina pectoris; E11.22 Type 2 diabetes mellitus with diabetic chronic kidney disease; I12.9 Hypertensive chronic kidney disease with stage 1 through stage 4 chronic kidney disease, or unspecified chronic kidney disease; N18.30 Chronic kidney disease, stage 3 unspecified; E78.5 Hyperlipidemia, unspecified; H35.30 Unspecified macular degeneration; X58.XXXA Exposure to other specified factors, initial encounter
CPT/HCPCS: 73610; 73620; 99283; E0114

== ENCOUNTER → 2022-11-26 11:40 | Outpatient (BNVA) | payer BC, MEDICAID, SELFPAY | PROVIDERS: PCP Family Medicine Adult Medicine; Visit Provider Family Medicine Adult Medicine | DX: E78.5 Hyperlipidemia, unspecified (principal); E11.39 Type 2 diabetes mellitus with other diabetic ophthalmic complication; I10 Essential (primary) hypertension; Z79.4 Long term (current) use of insulin; I25.10 Atherosclerotic heart disease of native coronary artery without angina pectoris; H35.30 Unspecified macular degeneration; E11.9 Type 2 diabetes mellitus without complications; N18.30 Chronic kidney disease, stage 3 unspecified; E11.22 Type 2 diabetes mellitus with diabetic chronic kidney disease | CPT/HCPCS: 80048; 80061; 83036; 83735; 83880 ==

== ENCOUNTER → 2023-11-03 09:37 | Outpatient (BNVA) | payer BC, MEDICAID, SELFPAY | PROVIDERS: PCP Family Medicine Adult Medicine; Visit Provider Family Medicine Adult Medicine | DX: R79.89 Other specified abnormal findings of blood chemistry (principal); Z98.49 Cataract extraction status, unspecified eye; E11.9 Type 2 diabetes mellitus without complications; I10 Essential (primary) hypertension; N18.30 Chronic kidney disease, stage 3 unspecified; E11.22 Type 2 diabetes mellitus with diabetic chronic kidney disease | CPT/HCPCS: 80053; 80061; 83036; 83880; 85025 ==

== ENCOUNTER 2024-02-08 08:31 | Emergency (ER) | payer BC, MEDICAID, SELFPAY ==
[2024-02-08] VITALS (7 sets, daily range): BP systolic 138–173; BP diastolic 83–99; PULSE 68–80; RESP 14–17; TEMP 36.8; O2SAT 96–98; BMI 36.2
--- NOTE | 2024-02-08 08:35 | XR_ITS ---
WS: [id number] PORTABLE CHEST HISTORY: dyspnea/cough COMPARISON: 04/16/2022 Mild pulmonary hyperinflation. No pleural effusion or pneumothorax. Cardiac size: Normal. Mediastinum/Aorta: Normal mediastinum. No osseous abnormality seen. XR/XR chest 1V portable [id number] IMPRESSION: Unremarkable portable chest.
--- NOTE | 2024-02-08 08:40 | ECG_ITS ---
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 Measurements Intervals [place] Rate: 72 P: 61 CT: 144 QRS: 17 QRSD: 98 T: 45 QT: 377 QTc: 413 Interpretive Statements SINUS RHYTHM LOW QRS VOLTAGE IN PRECORDIAL LEADS [QRS DEFLECTION < 1.0 mV IN CHEST LEADS] Compared to ECG 04/16/2022 19:35:32 Low QRS voltage now present Electronically Signed On 02-08-2024 22:48:27 CDT by Pavan Menon M.D. [id number]
[2024-02-08] MEDS: aspirin 81 mg Chew Tablet 324 MG PO (08:49)
[2024-02-08 08:55] LABS: Basophils % 0.4 %; Eosinophils # 0.3 10^3/uL (0.0-0.8); Eosinophils % 4.2 %; Hematocrit 36.5 % (36-47); Lymphocytes % 11.7 %; Mean Corpuscular HGB Conc 32.1 g/dL (30-55); Mean Corpuscular Hemoglobin 29.9 pg (27-33); Mean Corpuscular Volume 93.4 fl (85-98); Mean Platelet Volume 10.3 fL (7.4-10.4); Monocytes # 0.5 10^3/uL (0.2-0.9); Monocytes % 6.1 %; Neutrophils # 6.29 10^3/uL (1.8-7.7); Neutrophils % 77.2 %; Nucleated Red Blood Cells % 0 %; Platelet Count 280 10^3/cmm (157-399); Red Blood Count 3.91 10^6/uL (3.85-5.65); Red Cell Distribution Width 13.1 % (12.1-15.1); White Blood Count 8.14 10^3/uL (3.29-11.43)
--- NOTE | 2024-02-08 09:10 | ED_ITS ---
HPI - Chest Pain 2 General: Chief Complaint: Chest Pain Stated Complaint: chest pain Time Seen by Provider: 02/08/24 08:35 History of Present Illness: 48-year-old female with known history of coronary disease diabetes mellitus former smoker presents to the emergency room with chest pain rating up in the left neck that woke her up last night. She has noticed she has been more short of breath recently with activities but she has not had any chest pain associated with it she did take a nitro this morning with the episode of chest comfort she had that did not seem to improve things. She has no chest pain at this time. Associated symptoms: Deny abdominal pain, dyspnea or fever(s) Review of Systems 2 Const: Denies: fever(s) or chills Card: Denies: chest pain Resp: Denies: dyspnea GI: Denies: abdominal pain : Denies: dysuria, urinary frequency or urinary urgency Musc: Denies: neck pain or back pain Skin/Breast: Denies: rash PFSH ED 2 PFSH: Medical History Obesity (BMI 30-39.9) 2007 weight 400 pounds CKD stage 3 secondary to diabetes Macular degeneration of both eyes Diabetic retinopathy associated with uncontrolled type 2 diabetes mellitus Hypertension Hyperlipidemia CAD (coronary artery disease) single stent 2018 Surgical History S/P cataract surgery Hx of coronary angioplasty (~09/2019) Hx of cholecystectomy (~09/2008) Hx of section Family History Father Diabetes Hypertension Hyperlipidemia Congestive heart failure (CHF) Mother Lung disease asthma and due to copd Hypertension Denies family history of CAD (coronary artery disease) Clotting disorder Dementia Anesthesia complication Bleeding disorder Cancer Stroke Social History Smoking and tobacco/nicotine status: never used tobacco/nicotine Quit status (tobacco/nicotine): has quit using Year quit tobacco: 1997 Former quit date comment: smoked 0.5 PPD x 3 yrs Second hand smoke exposure: No Alcohol intake: never Substance/Drug Use: never Caregiver/support person: Yes Lives independently: Yes Household members: significant other Marital status: Life Partner Number of children: 3 Number of grandchildren: 0 Highest education level completed: High School Graduate service: No Current occupational status: unemployed Pets and animals: No Do you think of yourself as: Straight/Heterosexual Current gender identity: Female Kalyani/Uatsdin: None Special kalyani needs: No Agree to transfusion: Yes Female Reproductive History: Spontaneous abortions: No Physical Exam 2 Const: COMMON NORMALS: no acute distress GENERAL APPEARANCE: cooperative and comfortable ORIENTATION/CONSCIOUSNESS: Yes awake, Yes oriented to person, Yes oriented to place and Yes oriented to time HENMT: COMMON NORMALS: normocephalic, atraumatic and hearing grossly normal bilaterally HEAD & SCALP: normocephalic and atraumatic Resp: COMMON NORMALS: normal respiratory effort, No retractions, No use of accessory muscles and clear to auscultation bilaterally AUSCULTATION: clear to auscultation bilaterally Cardio: COMMON NORMALS: regular rate, regular rhythm and No murmurs present (Cardio) RATE: regular rate RHYTHM: regular rhythm GI: COMMON NORMALS: Soft to palpation and No hepatosplenomegaly present A USCULTATION: Yes normoactive bowel sounds PALPATION: Yes Soft to palpation, No Tenderness to palpation present (GI), No Guarding due to palpation present (GI) and Yes No hepatosplenomegaly present Extremity: COMMON NORMALS: normal to inspection, capillary refill normal, no clubbing, cyanosis or edema, no calf tenderness and no pedal edema Neuro: SENSORIUM/ORIENTATION: Yes oriented to person, Yes oriented to place and Yes oriented to time Skin: COMMON NORMALS: no rashes or lesions noted GENERAL SKIN EXAM: no rashes or lesions noted Course 2 Vital Signs: Vital signs: Vital Signs Temperature 98.2 F 02/08/24 08:44 Pulse Rate 72 02/08/24 11:00 Respiratory Rate 17 02/08/24 11:00 Blood Pressure 153/94 02/08/24 10:30 Pulse Oximetry 96 02/08/24 11:00 Oxygen Delivery Me thod Room Air 02/08/24 09:30 MDM - Chest Pain Medical Decision Making Take enzymes negative chest x-ray and EKG unremarkable no acute ST changes noted on EKG. Will discharge the patient home and increase her Imdur to 90 mg daily gave her an additional prescription for 30 mg tablets continue aspirin and other medication we [facility] return if she has further problems Medical Records I reviewed the patient's medical records. Lab Data I reviewed the patient's lab results. 02/08/24 08:49 02/08/24 08:49 Radiology Impressions Chest X-Ray 02/08/24 08:35 IMPRESSION: Unremarkable portable chest. Laboratory Results WBC 8.14 10^3/uL (3.29-11.43) 02/08/24 08:49 RBC 3.91 10^6/uL (3.85-5.65) 02/08/24 08:49 Hgb 11.70 g/dL (11.27-16.99) 02/08/24 08:49 Hct 36.5 % (36-47) 02/08/24 08:49 MCV 93.4 fl (85-98) 02/08/24 08:49 MCH 29.9 pg (27-33) 02/08/24 08:49 MCHC 32.1 g/dL (30-55) 02/08/24 08:49 RDW 13.1 % (12.1-15.1) 02/08/24 08:49 Plt Count 280 10^3/cmm (157-399) 02/08/24 08:49 MPV 10.3 fL (7.4-10.4) 02/08/24 08:49 Neut % (Auto) 77.2 % 02/08/24 08:49 Lymph % (Auto) 11.7 % 02/08/24 08:49 Nolan % (Auto) 6.1 % 02/08/24 08:49 Eos % (Auto) 4.2 % 02/08/24 08:49 Baso % (Auto) 0.4 % 02/08/24 08:49 Neut # (Auto) 6.29 10^3/uL (1.8-7.7) 02/08/24 08:49 Lymph # (Auto) 1.0 10^3/uL (0.8-4.8) 02/08/24 08:49 Nolan # (Auto) 0.5 10^3/uL (0.2-0.9) 02/08/24 08:49 Eos # (Auto) 0.3 10^3/uL (0.0-0.8) 02/08/24 08:49 Baso # (Auto) 0.0 10^3/uL (0.0-0.1) 02/08/24 08:49 Nucleated RBC % (auto) 0 % 02/08/24 08:49 Nucleated RBCs # 0.0 /100WBC 02/08/24 08:49 Sodium 135 mmol/L (136-145) L 02/08/24 08:49 Potassium 4.5 mmol/L (3.5-5.1) 02/08/24 08:49 Chloride 105 mmol/L (98-107) 02/08/24 08:49 Carbon Dioxide 19 mmol/L (22-29) L 02/08/24 08:49 Anion Gap 15.5 (5-19) 02/08/24 08:49 BUN 27 mg/dL (6-20) H 02/08/24 08:49 Creatinine 1.5 mg/dL (0.5-0.9) H 02/08/24 08:49 GFR Calculation 36.9 mL/min (90-130) L 02/08/24 08:49 Glucose 212 mg/dL (65-115) H 02/08/24 08:49 Calculated Osmolality 291 mOsm/kg (285-295) 02/08/24 08:49 Calcium 8.5 mg/dL (8.5-10.5) 02/08/24 08:49 Total Bilirubin 0.2 mg/dL (0.15-1.2) 02/08/24 08:49 AST 15 U/L (0-32) 02/08/24 08:49 ALT 13 U/L (0-33) 02/08/24 08:49 Alkaline Phosphatase 88 U/L (35-105) 02/08/24 08:49 Troponin T Baseline 14 ng/L (0-10) H 02/08/24 08:49 Troponin T 120 Minute 12.75 ng/L (0-10) H 02/08/24 10:56 Delta Troponin T -1.25 ABS# (0-10) L 02/08/24 10:56 Total Protein 6.4 g/dL (6.6-8.7) L 02/08/24 08:49 Albumin 3.3 g/dL (3.5-5.2) L 02/08/24 08:49 Globulin 3.1 g/dL (1.3-4.6) 02/08/24 08:49 All radiology interpretation(s) finalized by discharge Discharge Plan Discharge Patient Disposition: Home Clinical Impression: Chest pain, Diabetic retinopathy associated with uncontrolled type 2 diabetes mellitus CAD (coronary artery disease) Qualifiers: Coronary Disease-Associated Artery/Lesion type: [place] artery [place] vs. transplanted heart: [place] heart Associated angina: with stable angina Qualified Code(s): I25.118 - Atherosclerotic heart disease of [place] coronary artery with other forms of angina pectoris Condition: Stable Prescriptions: New isosorbide mononitrate 30 mg tablet extended release 24 hr 30 mg PO DAILY Qty: 30 0RF Continued isosorbide mononitrate 60 mg tablet extended release 24 hr 60 mg PO DAILY Qty: 90 3RF Rx Instructions: Take along with 30 mg tablets once a day No Action aspirin 81 mg tablet,delayed release (DR/EC) 81 mg PO QAM Qty: 100 3RF atorvastatin 40 mg tablet 40 mg PO BEDTIME Qty: 90 3RF carvedilol 12.5 mg tablet 12.5 mg PO BID Qty: 180 3RF hydrochlorothiazide 25 mg tablet 25 mg PO DAILY Qty: 90 3RF insulin aspart U-100 [Novolog FlexPen U-100 Insulin] 100 unit/mL (3 mL) insulin pen 5 unit SUBCUT TID 90 Days Qty: 15 5RF lisinopril 40 mg tablet 40 mg PO DAILY 90 Days Qty: 90 3RF metformin 500 mg tablet 500 mg PO BID Qty: 180 3RF nitroglycerin [Nitrostat] 0.4 mg tablet, sublingual 0.4 mg sublingual Q5M PRN (Reason: chest pain) Qty: 30 6RF Rx Instructions: do not exceed 3 doses per episode (DME) pen needle, diabetic [Pen Needle] 31 gauge x 5/16 needle See Rx Instructions .ROUTE .MEDSUPPLY Qty: 1200 0RF Rx Instructions: As directed Brilinta 90 mg tablet 90 mg PO BID Qty: 180 3RF amlodipine 10 mg tablet 10 mg PO DAILY 90 Days Qty: 90 3RF (DME) OneTouch Ultra Test Strip See Rx Instructions .ROUTE .COMPLEX Qty: 100 11RF Dose Instruction: TEST DIRECTED FOR GLUCOSE MEASURING Rx Instructions: TEST DIRECTED FOR GLUCOSE MEASURING Lantus Solostar U-100 Insulin 100 unit/mL (3 mL) insulin pen 20 unit SUBCUT BEDTIME Discharge Orders: Discharge ED (Routine); Ordered 02/08/24 Ordered By: Jerome Velázquez Referrals: Trenton De Jesus MD [Primary Care Provider] - Discharge Diet: Usual diet Discharge Activity: Limit activity as instructed Patient Instructions: Opioid Safety, Pain Management Activity Restrictions/Additional Instructions: Thank you for choosing [facility] for your healthcare needs today. Please realize this is an emergency room and that we are providing you with a medical screening exam and this may not be complete and all inclusive of all the testing and or work up that you may need to determine your ailment or severity of your illness. It is very important that you follow up as instructed or that you return to the Emergency Department should you have concerns or if your condition changes or worsens in any way. You were seen today for complaints of chest pain. Your cardiac enzymes and EKGs were normal. Recommend you increase your isosorbide mononitrate to 90 mg a day. You are given a second prescription for 30 mg tablets of the isosorbide take along with the 60 mg tablet you previously have been prescribed. Continue all of your other medications. Case management will set up a outpatient Lexiscan sestamibi stress test to further evaluate your heart. If you have worsening symptoms return to the emergency room Coding Level of Care Code ED Inside Sales Agent for Tonya Patel
[2024-02-08 09:16] LABS: Alanine Aminotransferase 13 U/L (0-33); Albumin Level 3.3 g/dL (3.5-5.2); Alkaline Phosphatase 88 U/L (35-105); Anion Gap 15.5 (5-19); Aspartate Amino Transferase 15 U/L (0-32); Blood Urea Nitrogen 27 mg/dL (6-20); Calcium 8.5 mg/dL (8.5-10.5); Carbon Dioxide 19 mmol/L (22-29); Chloride 105 mmol/L (98-107); Creatinine Clr Calc Pharmacy 47.2583; Globulin 3.1 g/dL (1.3-4.6); Glomerular Filtration Rate 36.9 mL/min (90-130); Glucose 212 mg/dL (65-115); Osmolality Calculated 291 mOsm/kg (285-295); Potassium 4.5 mmol/L (3.5-5.1); Sodium 135 mmol/L (136-145); Total Bilirubin 0.2 mg/dL (0.15-1.2); Total Protein 6.4 g/dL (6.6-8.7)
--- NOTE | 2024-02-08 09:34 | PC.PHAR ---
PT STATES SHE IS TAKING BRILINTA AND ASPIRIN, BOTH.
[2024-02-08 09:40] LABS: Troponin(5th) Baseline 14 ng/L (0-10)
--- NOTE | 2024-02-08 10:28 | ECG_ITS ---
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 Measurements Intervals [place] Rate: 68 P: 65 GA: 156 QRS: 36 QRSD: 94 T: 54 QT: 394 QTc: 420 Interpretive Statements SINUS RHYTHM LOW QRS VOLTAGE IN PRECORDIAL LEADS [QRS DEFLECTION < 1.0 mV IN CHEST LEADS] Compared to ECG 02/08/2024 08:40:17 No significant changes Electronically Signed On 02-08-2024 23:04:29 CDT by Pavan Menon M.D. [id number]
[2024-02-08 11:20] LABS: Troponin 5 2HR 12.75 ng/L (0-10)
[2024-02-08 11:22] LABS: Troponin 5 2HR Delta -1.25 ABS# (0-10)
--- NOTE | 2024-02-09 08:49 | DCPLANNER ---
order for tamiaan sent to scheduling
== END 2024-02-08 12:03 | disposition home or self-care (01) ==
PROVIDERS: Emergency Provider Family Medicine; PCP Family Medicine Adult Medicine
DX: R07.9 Chest pain, unspecified (principal); E11.319 Type 2 diabetes mellitus with unspecified diabetic retinopathy without macular edema; I25.118 Atherosclerotic heart disease of native coronary artery with other forms of angina pectoris; Z79.82 Long term (current) use of aspirin; Z79.4 Long term (current) use of insulin; Z79.84 Long term (current) use of oral hypoglycemic drugs; Z87.891 Personal history of nicotine dependence; E11.22 Type 2 diabetes mellitus with diabetic chronic kidney disease; I12.9 Hypertensive chronic kidney disease with stage 1 through stage 4 chronic kidney disease, or unspecified chronic kidney disease; N18.30 Chronic kidney disease, stage 3 unspecified; H35.30 Unspecified macular degeneration; E78.5 Hyperlipidemia, unspecified; I25.10 Atherosclerotic heart disease of native coronary artery without angina pectoris; Z98.61 Coronary angioplasty status
CPT/HCPCS: 36415; 71045; 80053; 84484; 85025; 93005; 99285

== ENCOUNTER → 2024-07-31 13:58 | Outpatient (BNVA) | payer BC, MEDICAID, SELFPAY | PROVIDERS: PCP Family Medicine Adult Medicine | DX: R41.3 Other amnesia (principal); I10 Essential (primary) hypertension; E11.39 Type 2 diabetes mellitus with other diabetic ophthalmic complication; Z79.4 Long term (current) use of insulin; E78.2 Mixed hyperlipidemia; R53.83 Other fatigue | CPT/HCPCS: 80053; 80061; 82306; 83036; 84439; 84443; 84481; 85025 ==

== ENCOUNTER 2024-08-16 15:22 | Outpatient (CLI) | payer BC, MEDICAID, SELFPAY ==
--- NOTE | 2024-08-16 16:02 | CT_ITS ---
WS: [id number] CT HEAD NONCONTRAST HISTORY: memory loss TECHNIQUE: Contiguous axial imaging performed through the brain. Bone and soft tissue windows. Sagitt al and coronal reformats reviewed. All CT scans at [facility] use at least one of these dose optimization techniques: automated exposure control; mA and/or kV adjustment per patient size (includ es targeted exams where dose is matched to clinical indication); or iterative reconstruction. DLP: 1061.68 mGy.cm COMPARISON: None available. No acute intracranial hemorrhage, midline shift or mass effect. Mild atrophy and mild small vessel disease. No prior infarct. No edema. Posterior fossa is negative. Ventricles: Normal size with no hydrocephalus. Paranasal sinuses: Small amount of mucoperiosteal thickening in the posterior RIGHT ethmoid air cells . Mastoid air cells: Well pneumatized. Calvarium and scalp: Skull is intact with no soft tissue edema or swelling. CT/CT head wo con* [id number] IMPRESSION: 1. No acute intracranial hemorrhage or edema. 2. Mild symmetric cerebral atrophy and small vessel disease. 3. No prior infarct.
== END 2024-08-16 15:23 | disposition home or self-care (01) ==
LOC: RAD 15:23
PROVIDERS: PCP Family Medicine Adult Medicine
DX: R41.3 Other amnesia (principal); R53.83 Other fatigue
CPT/HCPCS: 70450

== ENCOUNTER 2024-10-10 08:04 | Outpatient (CLI) | payer BC, MEDICAID, SELFPAY ==
[2024-10-10 09:02] LABS: Alanine Aminotransferase 10 U/L (0-33); Albumin Level 3.7 g/dL (3.5-5.2); Alkaline Phosphatase 106 U/L (35-105); Anion Gap 16.2 (5-19); Aspartate Amino Transferase 12 U/L (0-32); Blood Urea Nitrogen 28 mg/dL (6-20); Calcium 9.3 mg/dL (8.5-10.5); Carbon Dioxide 18 mmol/L (22-29); Chloride 108 mmol/L (98-107); Globulin 3.2 g/dL (1.3-4.6); Glomerular Filtration Rate 36.9 mL/min (90-130); Glucose 212 mg/dL (65-115); Osmolality Calculated 296 mOsm/kg (285-295); Potassium 5.2 mmol/L (3.5-5.1); Sodium 137 mmol/L (136-145); Total Bilirubin 0.2 mg/dL (0.15-1.2); Total Protein 6.9 g/dL (6.6-8.7)
== END 2024-10-10 08:05 | disposition home or self-care (01) ==
LOC: LAB 08:05
PROVIDERS: PCP Pediatrics; Visit Provider Pediatrics
DX: I10 Essential (primary) hypertension (principal)
CPT/HCPCS: 36415; 80053

== ENCOUNTER 2024-11-13 06:31 | Observation (INO) | payer BC, MEDICAID, SELFPAY ==
[2024-11-13] VITALS (18 sets, daily range): BP systolic 151–191; BP diastolic 76–98; PULSE 64–85; RESP 12–19; TEMP 36.6–36.8; O2SAT 98–100; BMI 32.9; BMI 33.3
--- NOTE | 2024-11-13 06:33 | XRR_ITS ---
PROCEDURE INFORMATION: Exam: XR Chest Exam date and time: 11/13/2024 6:47 AM Age: 49 years old Clinical indication: Sternal or substernal pain; Prior surgery; Surgery date: 6+ months; Surgery type: Cardiac stents; Additional info: Chest pain TECHNIQUE: Imaging protocol: Radiologic exam of the chest. Views: 1 view. COMPARISON: CR XR chest 1V portable [id number] 02/08/2024 8:42 AM FINDINGS: Lungs: Unremarkable. No consolidation. Pleural spaces: Unremarkable. No pleural effusion. No pneumothorax. Heart/Mediastinum: Unremarkable. No cardiomegaly. Bones/joints: Unremarkable. XR/XR chest 1V portable [id number] IMPRESSION: No acute findings.
--- NOTE | 2024-11-13 06:34 | W.ED.CHESTPA ---
HPI - Chest Pain General: Chief Complaint: Chest Pain Stated Complaint: cp,pain in left harm,numb and tingling in hand/arm Time Seen by Provider: 11/13/24 06:33 History of Present Illness: 49-year-old female with a known history of coronary artery disease. Over the last week she has had episodes of chest pain while at rest this morning she went into and woke her up she took 2 nitro for it had minimal relief eventually resolved spontaneously. The episodes been getting more intense. She also noticed chest pain with exertion. She denies any fever sweats or chills cough or cold. She has a known history of coronary artery disease and had previous stents placed several years ago while in [place]. Her last stress test was in March 2021. Associated symptoms: Deny abdominal pain, dyspnea or fever(s) Related Data Home Medications ?Medication ?Instructions ?Recorded ?Confirmed amlodipine 10 mg tablet 10 mg PO DAILY 11/13/24 11/13/24 atorvastatin 40 mg tablet 40 mg PO QPM 11/13/24 11/13/24 hydrochlorothiazide 25 mg tablet 25 mg PO DAILY 11/13/24 11/13/24 isosorbide mononitrate 60 mg 60 mg PO DAILY 11/13/24 11/13/24 tablet,extended release 24 hr lisinopril 40 mg tablet 40 mg PO DAILY 11/13/24 11/13/24 Previous Rx's ?Medication ?Instructions ?Recorded blood sugar diagnostic (OneTouch #100 ea 11/03/23 Ultra Test strips) insulin aspart U-100 100 unit/mL 5 unit (0.05 mL) SUBCUT TID 90 11/03/23 (3 mL) subcutaneous pen (Novolog days #15 mL FlexPen U-100 Insulin aspart) nitroglycerin 0.4 mg sublingual 0.4 mg sublingual Q5M PRN chest 11/03/23 tablet (Nitrostat) pain #30 tabs carvedilol 12.5 mg tablet 12.5 mg PO BID heart/blood 10/19/24 pressure #180 tabs ticagrelor 90 mg tablet (Brilinta) 90 mg PO BID circulation #180 tabs 10/19/24 insulin glargine 100 unit/mL (3 20 unit (0.2 mL) SUBCUT BEDTIME 11/13/24 mL) subcutaneous pen (Lantus #15 mL Solostar U-100 Insulin) pen needle, diabetic 31 gauge x #100 ea 11/13/24/16 (Pen Needle) Allergies Allergy/AdvReac Type Severity Reaction Status Date / Time No Known Allergies Allergy Verified 10/29/24 11:08 Review of Systems Const: Denies: fever(s) or chills Card: Reports: chest pain and dyspnea on exertion Resp: Denies: dyspnea GI: Denies: abdominal pain : Denies: dysuria, urinary frequency or urinary urgency Musc: Denies: neck pain or back pain Skin/Breast: Denies: rash PFSH ED PFSH: Medical History Fatigue Obesity (BMI 30-39.9) 2007 weight 400 pounds CKD stage 3 secondary to diabetes Macular degeneration of both eyes Diabetic retinopathy associated with uncontrolled type 2 diabetes mellitus Hypertension Hyperlipidemia CAD (coronary artery disease) single stent 2018 Surgical History S/P cataract surgery Hx of coronary angioplasty (~09/2019) Hx of cholecystectomy (~09/2008) Hx of section Family History Father Diabetes Hypertension Hyperlipidemia Congestive heart failure (CHF) Mother Lung disease asthma and due to copd Hypertension Denies family history of CAD (coronary artery disease) Clotting disorder Dementia Anesthesia complication Bleeding disorder Cancer Stroke Social History Smoking and tobacco/nicotine status: former use of tobacco/nicotine Quit status (tobacco/nicotine): has quit using Year quit tobacco: 1997 Former quit date comment: smoked 0.5 PPD x 3 yrs Second hand smoke exposure: No Alcohol intake: never Substance/Drug Use: never Caregiver/support person: Yes Lives independently: Yes Household members: significant other Marital status: Life Partner Number of children: 3 Number of grandchildren: 0 Highest education level completed: High School Graduate service: No Current occupational status: unemployed Pets and animals: No Do you think of yourself as: Straight/Heterosexual Current gender identity: Female Kalyani/Lutheran: None Special kalyani needs: No Agree to transfusion: Yes Female Reproductive History: Spontaneous abortions: No Physical Exam Const: GENERAL APPEARANCE: cooperative ORIENTATION/CONSCIOUSNESS: Yes awake, Yes oriented to person, Yes oriented to place and Yes oriented to time HENMT: COMMON NORMALS: normocephalic, atraumatic and hearing grossly normal bilaterally HEAD & SCALP: normocephalic and atraumatic Resp: COMMON NORMALS: normal respiratory effort, No retractions, No use of accessory muscles and clear to auscultation bilaterally AUSCULTATION: clear to auscultation bilaterally Cardio: COMMON NORMALS: regular rate, regular rhythm and No murmurs present (Cardio) RATE: regular rate RHYTHM: regular rhythm GI: COMMON NORMALS: Soft to palpation and No hepatosplenomegaly present AUSCULTATION: Yes normoactive bowel sounds PALPATION: Yes Soft to palpation, No Tenderness to palpation present (GI), No Guarding due to palpation present (GI) and Yes No hepatosplenomegaly present Extremity: COMMON NORMALS: normal to inspection, capillary refill normal, no clubbing, cyanosis or edema, no calf tenderness and no pedal edema Neuro: SENSORIUM/ORIENTATION: Yes oriented to person, Yes oriented to place and Yes oriented to time OTHER: No neurologic deficits no lateralizing deficits Skin: COMMON NORMALS: no rashes or lesions noted GENERAL SKIN EXAM: no rashes or lesions noted Course Vital Signs: Vital signs: Vital Signs Temperature 98.2 F 11/13/24 06:35 Pulse Rate 77 11/13/24 10:30 Respiratory Rate 14 11/13/24 10:30 Blood Pressure 176/98 11/13/24 10:30 Pulse Oximetry 100 11/13/24 10:30 Oxygen Delivery Me thod Room Air 11/13/24 10:30 MDM - Chest Pain Medical Decision Making Symptoms resolved the time she arrived here she described numbness and tingling in the left arm on exam there are no neurologic deficits. Concerning with the escalating angina, both at rest and with exertion. Will admit to [facility] discussed with cardiology they will consult on the patient admit to hospitalist orders written Medical Records I reviewed the patient's medical records. Lab Data I reviewed the patient's lab results. 11/13/24 06:45 11/13/24 06:45 Radiology Impressions Chest X-Ray 11/13/24 06:33 IMPRESSION: No acute findings. Laboratory Results WBC 5.94 10^3/uL (3.29-11.43) 11/13/24 06:45 RBC 3.73 10^6/uL (3.85-5.65) L 11/13/24 06:45 Hgb 11.20 g/dL (11.27-16.99) L 11/13/24 06:45 Hct 36.2 % (36-47) 11/13/24 06:45 MCV 97.1 fl (85-98) 11/13/24 06:45 MCH 30.0 pg (27-33) 11/13/24 06:45 MCHC 30.9 g/dL (30-55) 11/13/24 06:45 RDW 13.2 % (12.1-15.1) 11/13/24 06:45 Plt Count 329 10^3/cmm (157-399) 11/13/24 06:45 MPV 9.7 fL (7.4-10.4) 11/13/24 06:45 Neut % (Auto) 69.9 % 11/13/24 06:45 Lymph % (Auto) 15.8 % 11/13/24 06:45 Irwin % (Auto) 7.9 % 11/13/24 06:45 Eos % (Auto) 5.2 % 11/13/24 06:45 Baso % (Auto) 1.0 % 11/13/24 06:45 Neut # (Auto) 4.15 10^3/uL (1.8-7.7) 11/13/24 06:45 Lymph # (Auto) 0.9 10^3/uL (0.8-4.8) 11/13/24 06:45 Irwin # (Auto) 0.5 10^3/uL (0.2-0.9) 11/13/24 06:45 Eos # (Auto) 0.3 10^3/uL (0.0-0.8) 11/13/24 06:45 Baso # (Auto) 0.1 10^3/uL (0.0-0.1) 11/13/24 06:45 Nucleated RBC % (auto) 0 % 11/13/24 06:45 Nucleated RBCs # 0.0 /100WBC 11/13/24 06:45 Sodium 136 mmol/L (136-145) 11/13/24 06:45 Potassium 4.7 mmol/L (3.5-5.1) 11/13/24 06:45 Chloride 105 mmol/L (98-107) 11/13/24 06:45 Carbon Dioxide 18 mmol/L (22-29) L 11/13/24 06:45 Anion Gap 17.7 (5-19) 11/13/24 06:45 BUN 31 mg/dL (6-20) H 11/13/24 06:45 Creatinine 1.3 mg/dL (0.5-0.9) H 11/13/24 06:45 GFR Calculation 43.4 mL/min (90-130) L 11/13/24 06:45 Glucose 158 mg/dL (65-115) H 11/13/24 06:45 Calculated Osmolality 292 mOsm/kg (285-295) 11/13/24 06:45 Calcium 9.3 mg/dL (8.5-10.5) 11/13/24 06:45 Total Bilirubin 0.2 mg/dL (0.15-1.2) 11/13/24 06:45 AST 22 U/L (0-32) 11/13/24 06:45 ALT 20 U/L (0-33) 11/13/24 06:45 Alkaline Phosphatase 110 U/L (35-105) H 11/13/24 06:45 Troponin T Baseline 12 ng/L (0-10) H 11/13/24 06:45 Troponin T 120 Minute 10.08 ng/L (0-10) H 11/13/24 09:03 Delta Troponin T -1.92 ABS# (0-10) L 11/13/24 09:03 Total Protein 7.1 g/dL (6.6-8.7) 11/13/24 06:45 Albumin 3.7 g/dL (3.5-5.2) 11/13/24 06:45 Globulin 3.4 g/dL (1.3-4.6) 11/13/24 06:45 Urine Color Yellow (Yellow) 11/13/24 06:55 Urine Appearance Clear (CLEAR) 11/13/24 06:55 Urine pH 5.5 (5-7) 11/13/24 06:55 Ur Specific [place] 1.010 (1.005-1.030) 11/13/24 06:55 Urine Protein 2+ (Negative) A 11/13/24 06:55 Urine Glucose (UA) Negative (Normal) 11/13/24 06:55 Urine Ketones Negative (Negative) 11/13/24 06:55 Urine Blood Negative (Negative) 11/13/24 06:55 Urine Nitrate Negative (Negative) 11/13/24 06:55 Urine Bilirubin Negative (Negative) 11/13/24 06:55 Urine Urobilinogen 0.2 mg/dL (Negative) 11/13/24 06:55 Ur Leukocyte Esterase Trace (Negative) A 11/13/24 06:55 Urine RBC 0-2 /hpf (0-2) 11/13/24 06:55 Urine WBC 6-10 /hpf (0-5) 11/13/24 06:55 Ur Squamous Epith Cells 6-10 /hpf (0-5) 11/13/24 06:55 Amorphous Sediment Not Reportable 11/13/24 06:55 Urine Bacteria 1+ /hpf (NONE) H 11/13/24 06:55 Hyaline Casts 0-4 /lpf H 11/13/24 06:55 Coronavirus (PCR) Negative (Negative) 11/13/24 06:50 Influenza A (PCR) Negative (Negative) 11/13/24 06:50 Influenza Type B (PCR) Negative (Negative) 11/13/24 06:50 RSV (PCR) Negative (Negative) 11/13/24 06:50 All radiology interpretation(s) finalized by discharge Discharge Plan Discharge Patient Disposition: Placed in Observation Admit Provider: Barrie Mcguire Clinical Impression: Unstable angina pectoris, CAD (coronary artery disease), Diabetic retinopathy associated with uncontrolled type 2 diabetes mellitus, CKD stage 3 secondary to diabetes Condition: Stable Coding Level of Care Code ED Paint Prepper for Tonya Patel
--- NOTE | 2024-11-13 06:36 | ECG_ITS ---
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 Measurements Intervals [place] Rate: 70 P: 59 WV: 154 QRS: 21 QRSD: 88 T: 48 QT: 385 QTc: 417 Interpretive Statements SINUS RHYTHM LOW QRS VOLTAGE IN PRECORDIAL LEADS [QRS DEFLECTION < 1.0 mV IN CHEST LEADS] Compared to ECG 02/08/2024 10:28:34 No significant changes Electronically Signed On 11-15-2024 17:53:43 PROTECTIVE SIGNAL INSTALLER by Pavan Menon M.D. [id number]
[2024-11-13 06:57] LABS: Basophils # 0.1 10^3/uL (0.0-0.1); Eosinophils # 0.3 10^3/uL (0.0-0.8); Eosinophils % 5.2 %; Hematocrit 36.2 % (36-47); Lymphocytes # 0.9 10^3/uL (0.8-4.8); Lymphocytes % 15.8 %; Mean Corpuscular HGB Conc 30.9 g/dL (30-55); Mean Corpuscular Volume 97.1 fl (85-98); Mean Platelet Volume 9.7 fL (7.4-10.4); Monocytes # 0.5 10^3/uL (0.2-0.9); Monocytes % 7.9 %; Neutrophils # 4.15 10^3/uL (1.8-7.7); Neutrophils % 69.9 %; Nucleated Red Blood Cells % 0 %; Platelet Count 329 10^3/cmm (157-399); Red Blood Count 3.73 10^6/uL (3.85-5.65); Red Cell Distribution Width 13.2 % (12.1-15.1); White Blood Count 5.94 10^3/uL (3.29-11.43)
[2024-11-13 07:14] LABS: Alanine Aminotransferase 20 U/L (0-33); Albumin Level 3.7 g/dL (3.5-5.2); Alkaline Phosphatase 110 U/L (35-105); Anion Gap 17.7 (5-19); Aspartate Amino Transferase 22 U/L (0-32); Blood Urea Nitrogen 31 mg/dL (6-20); Calcium 9.3 mg/dL (8.5-10.5); Carbon Dioxide 18 mmol/L (22-29); Chloride 105 mmol/L (98-107); Creatinine Clr Calc Pharmacy 51.2606; Globulin 3.4 g/dL (1.3-4.6); Glomerular Filtration Rate 43.4 mL/min (90-130); Glucose 158 mg/dL (65-115); Osmolality Calculated 292 mOsm/kg (285-295); Potassium 4.7 mmol/L (3.5-5.1); Sodium 136 mmol/L (136-145); Total Bilirubin 0.2 mg/dL (0.15-1.2); Total Protein 7.1 g/dL (6.6-8.7); Troponin(5th) Baseline 12 ng/L (0-10)
[2024-11-13] MEDS: aspirin 81 mg Chew Tablet 324 MG PO (07:15)
[2024-11-13 07:42] LABS: Influenza A NEGATIVE (Negative); Influenza B NEGATIVE (Negative); Respiratory Syncytial Virus Ce NEGATIVE (Negative); SARS-CoV-2 PCR NEGATIVE (Negative)
[2024-11-13 07:42] LABS: Bilirubin Urine Negative (Negative); Blood Urine Negative (Negative); Glucose Urine UA Negative (Normal); Ketones Urine Negative (Negative); Leukocyte Esterase Urine Trace (Negative); Nitrate Urine Negative (Negative); Protein Urine 2+ (Negative); Urine Appearance Clear (CLEAR); Urine Color Yellow (Yellow); Urobilinogen Urine 0.2 mg/dL (Negative); pH Urine 5.5 (5-7)
[2024-11-13 07:45] LABS: Add Urine Microscopic? YES; Bacteria Urine 1+ /hpf; Hyaline Casts Urine 0-4 /lpf; RBC Urine 0-2 /hpf (0-2)
--- NOTE | 2024-11-13 08:34 | ECG_ITS ---
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 Measurements Intervals [place] Rate: 63 P: 65 NC: 161 QRS: 30 QRSD: 85 T: 56 QT: 395 QTc: 407 Interpretive Statements SINUS RHYTHM LOW QRS VOLTAGE IN PRECORDIAL LEADS [QRS DEFLECTION < 1.0 mV IN CHEST LEADS] Compared to ECG 11/13/2024 06:36:23 No significant changes Electronically Signed On 11-15-2024 18:25:31 EXTRUDER OPERATOR by Pavan Menon M.D. [id number]
[2024-11-13 09:33] LABS: Troponin 5 2HR 10.08 ng/L (0-10); Troponin 5 2HR Delta -1.92 ABS# (0-10)
--- NOTE | 2024-11-13 11:44 | PM.HP ---
Providers/Chief Complaint Admitting Physician: Barrie Mcguire Primary Care Provider: Cassy Barrera MD Chief Complaint: cp,pain in left harm,numb and tingling in hand/arm History of Present Illness 49-year-old lady with history of CKD 3, HTN commensurately, CAD, 1 prior stent, on aspirin and Brilinta, follows with cardiology clinic, has experienced chest pain symptoms with exertion over the last few weeks, but now also had an episode of chest pain at rest which woke her up this morning, which did not initially respond to nitroglycerin, but gradually getting better. She is still having mild discomfort currently. Baseline troponin 12, 2-hour troponin 10. EKG with low QRS voltage in precordial leads. Chest x-ray unremarkable. She is hypertensive, 174/84, when asked about her blood pressures at home, reports longstanding history of hypertension. Review of Systems Const: Denies: fever(s), chills, body aches or malaise ENMT: Denies: throat pain Card: Reports: chest pain; Denies: edema, pre-syncope or dyspnea on exertion Resp: Denies: dyspnea, productive cough, change in phlegm color or hemoptysis GI: Denies: abdominal pain, nausea, vomiting, diarrhea, constipation, hematochezia or melena : Denies: flank pain, urinary frequency or hematuria Musc: Denies: back pain, joint swelling or joint redness Skin/Breast: Denies: rash or new lesions Neuro: Denies: headache(s) or confusion Medications/Allergies Home Medications ?Medication ?Instructions ?Recorded ?Confirmed ?Last Taken ?Type blood sugar diagnostic (OneTouch #100 ea 11/03/23 11/13/24 Unknown Rx Ultra Test strips) insulin aspart U-100 100 unit/mL 5 unit (0.05 mL) SUBCUT TID 90 11/03/23 11/13/24 02/08/24 Rx (3 mL) subcutaneous pen (Novolog days #15 mL FlexPen U-100 Insulin aspart) nitroglycerin 0.4 mg sublingual 0.4 mg sublingual Q5M PRN chest 11/03/23 11/13/24 Unknown Rx tablet (Nitrostat) pain #30 tabs carvedilol 12.5 mg tablet 12.5 mg PO BID heart/blood 10/19/24 11/13/24 Unknown Rx pressure #180 tabs ticagrelor 90 mg tablet (Brilinta) 90 mg PO BID circulation #180 tabs 10/19/24 11/13/24 Unknown Rx amlodipine 10 mg tablet 10 mg PO DAILY 11/13/24 11/13/24 Unknown History atorvastatin 40 mg tablet 40 mg PO QPM 11/13/24 11/13/24 Unknown History hydrochlorothiazide 25 mg tablet 25 mg PO DAILY 11/13/24 11/13/24 Unknown History insulin glargine 100 unit/mL (3 20 unit (0.2 mL) SUBCUT BEDTIME 11/13/24 11/13/24 Unknown Rx mL) subcutaneous pen (Lantus #15 mL Solostar U-100 Insulin) isosorbide mononitrate 60 mg 60 mg PO DAILY 11/13/24 11/13/24 Unknown History tablet,extended release 24 hr lisinopril 40 mg tablet 40 mg PO DAILY 11/13/24 11/13/24 Unknown History pen needle, diabetic 31 gauge x #100 ea 11/13/24 11/13/24 Unknown Rx 02/16 (Pen Needle) Allergies Allergy/AdvReac Type Severity Reaction Status Date / Time No Known Allergies Allergy Verified 10/29/24 11:08 PFSH Acute PFSH: Medical History Fatigue Obesity (BMI 30-39.9) 2007 weight 400 pounds CKD stage 3 secondary to diabetes Macular degeneration of both eyes Diabetic retinopathy associated with uncontrolled type 2 diabetes mellitus Hypertension Hyperlipidemia CAD (coronary artery disease) single stent 2018 Surgical History S/P cataract surgery Hx of coronary angioplasty (~09/2019) Hx of cholecystectomy (~09/2008) Hx of section Family History Father Diabetes Hypertension Hyperlipidemia Congestive heart failure (CHF) Mother Lung disease asthma and due to copd Hypertension Denies family history of CAD (coronary artery disease) Clotting disorder Dementia Anesthesia complication Bleeding disorder Cancer Stroke Social History Smoking and tobacco/nicotine status: former use of tobacco/nicotine Quit status (tobacco/nicotine): has quit using Year quit tobacco: 1997 Former quit date comment: smoked 0.5 PPD x 3 yrs Second hand smoke exposure: No Alcohol intake: never Substance/Drug Use: never Caregiver/support person: Yes Lives independently: Yes Household members: significant other Marital status: Life Partner Number of children: 3 Number of grandchildren: 0 Highest education level completed: High School Graduate service: No Current occupational status: unemployed Pets and animals: No Do you think of yourself as: Straight/Heterosexual Current gender identity: Female Kalyani/Gnosticist: None Special kalyani needs: No Agree to transfusion: Yes Female Reproductive History: Date of last menstrual period: 11/04/24 Spontaneous abortions: No Vitals/I&O/Wt Last Vital Signs Temp 98.2 F 11/13/24 06:35 Pulse 67 11/13/24 11:30 Resp 13 11/13/24 11:30 BP 174/84 11/13/24 11:30 Pulse Ox 99 11/13/24 11:30 O2 Del Method Room Air 11/13/24 11:30 Weight last 48 hrs Weight 81.647 kg Physical Exam Narrative: Accompanied by her . Const: COMMON NORMALS: patient oriented x3 and alert GENERAL APPEARANCE: cooperative ORIENTATION/CONSCIOUSNESS: Yes awake HENMT: COMMON NORMALS: oropharynx normal Neck/C-Spine: COMMON NORMALS: no JVD Resp: COMMON NORMALS: normal respiratory effort and clear to auscultation bilaterally AUSCULTATION: clear to auscultation bilaterally Cardio: COMMON NORMALS: no JVD, regular rhythm, S1 normal heart sound present, S2 normal heart sound present and No murmurs present (Cardio) RHYTHM: regular rhythm HEART SOUNDS: S1 normal heart sound present and S2 normal heart sound present GI: COMMON NORMALS: Normal to inspection, nondistended, normoactive bowel sounds present, Soft to palpation and non-tender PALPATION: Yes Soft to palpation Extremity: COMMON NORMALS: no joint enlargement and no pedal edema Neuro: COMMON NORMALS: patient oriented x3 and moves all extremities SENSORIUM/ORIENTATION: Yes alert Skin: COMMON NORMALS: no rashes or lesions noted GENERAL SKIN EXAM: no rashes or lesions noted Data 11/13/24 06:45 11/13/24 06:45 A&P Assessment and plan (1) Unstable angina pectoris: Recently with recurrent chest pain with exertion, but this morning also with chest pain waking her up from sleep. History of CAD with 1 stent previously, with history HTN, HLD, former smoker. Continue aspirin, Brilinta. Complete troponin and EKG series. Treat possible unstable angina, anticoagulation with Lovenox. Monitor for risk of bleeding, repeat blood counts. Obtain TTE. Reviewed vitals, CBC, CMP, UA, COVID, influenza, RSV PCR swab, chest x-ray, EKG, on my interpretation low precordial lead voltage, pending official read. Reviewed ER provider note, discussed with ER provider. Cardiology consultation is pending. Monitor on telemetry with risk of arrhythmia. Monitor vitals. Continue beta-swathi, statin. Imdur. Nitroglycerin as needed. Plan HTN: Continue carvedilol, amlodipine, lisinopril HLD: Continue statin DM2: insulin Lantus at 10 units nightly, sliding scale insulin. PDMP PDMP Reviewed: Not Reviewed Attestations Medical Necessity Statement*: Place in observation for additional assessment management of unstable angina in a lady with prior coronary disease, cardiovascular risk factors as above. Diagnoses Unstable angina pectoris I20.0
--- NOTE | 2024-11-13 12:13 | USCV_ITS ---
Beata Rhodes Age: 49 Gender: F : 1975 Exam Date: 11/13/2024 13:58 Ordering Phys: Barrie Mcguire MD Technologist: Exam Location: [facility] [place] Indication: CP BP: 173 / 91 HR: 76 Rhythm: Sinus Technical Quality: Adequate MEASUREMENTS (Male / Female) Normal Values 2D ECHO LV Diastolic Diameter PLAX 4.0 cm 4.2 - 5.9 / 3.9 - 5.3 cm IVS Diastolic Thickness 1.2 cm 0.6 - 1.0 / 0.6 - 0.9 cm IVS Systolic Thickness 1.6 cm LVPW Diastolic Thickness 1.2 cm 0.6 - 1.0 / 0.6 - 0.9 cm LVPW Systolic Thickness 1.8 cm LVOT Diameter 2.0 cm LV Ejection Fraction 2D Teich 51.9 % LV Ejection Fraction MOD 4C 50.9 % LV Ejection Fraction MOD 2C 64.1 % LV Ejection Fraction 2C AL 65.1 % LA Diameter 2.9 cm RA Systolic Volume 4C AL 34.3 ml RA Systolic Volume 4C MOD 34.1 ml Aorta at Sinotubular Diameter 2.0 cm M-MODE LA Ao Ratio MM 1.0 AV Cusp Separation MM 2.0 cm DOPPLER AV Peak Velocity 144.0 cm/s LVOT Peak Velocity 93.0 cm/s AV Area Cont Eq vti 2.2 cm squared AV Area Cont Eq pk 2.0 cm squared MV Peak Velocity 116.0 cm/s MV Area PHT 4.4 cm squared Mitral E to A Ratio 1.3 TV Peak Velocity 153.0 cm/s TR Peak Velocity 170.0 cm/s TR Peak Gradient 11.6 mmHg TV Peak E Velocity 101.0 cm/s PV Peak Velocity 114.0 cm/s FINDINGS Left Ventricle Normal left ventricular size and systolic function, EF 60%. No regional wall motion abnormalities. Right Ventricle The right ventricle is normal in size and function. Right Atrium The right atrium is normal in size. Left Atrium The left atrium is normal in size. Mitral Valve Mild mitral valve regurgitation. Aortic Valve No gross abnormalities noted Tricuspid Valve Trace tricuspid valve regurgitation. Pulmonic Valve No gross abnormalities Pericardium Normal pericardium without effusion. Aorta Normal ascending aorta dimension. IVC Inferior vena cava not visualized. CONCLUSIONS Normal left ventricular size and systolic function, EF 60%. No regional wall motion abnormalities. Mild mitral valve regurgitation. Trace tricuspid valve regurgitation. There is no pericardial effusion. There are no intracardiac masses. Dr Pavan Menon MD FACC (Electronically Signed) Final Date: 13 November 2024 21:17 S
--- NOTE | 2024-11-13 12:34 | ECG_ITS ---
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 Measurements Intervals [place] Rate: 69 P: 58 CA: 174 QRS: 25 QRSD: 75 T: 45 QT: 375 QTc: 403 Interpretive Statements SINUS RHYTHM LOW QRS VOLTAGE IN PRECORDIAL LEADS [QRS DEFLECTION < 1.0 mV IN CHEST LEADS] SEPTAL MYOCARDIAL INFARCTION , OF INDETERMINATE AGE [40+ ms Q WAVE IN V1/V2] Compared to ECG 11/13/2024 09:38:01 Myocardial infarct finding now present Electronically Signed On 11-15-2024 18:25:44 DISEASE CASE MANAGER RN by Pavan Menon M.D. [email or web address]
[2024-11-13] MEDS: amlodipine 10 mg Tablet PO (12:56)
[2024-11-13] MEDS: enoxaparin 80 mg/0.8 mL Syringe SUBCUT (12:56)
[2024-11-13] MEDS: pantoprazole 40 mg SDV IVP (12:56)
[2024-11-13] MEDS: isosorbide mononitrate ER 60 mg Tablet PO (12:57)
[2024-11-13] MEDS: enoxaparin 100 mg/mL Syringe 80 MG SUBCUT (13:01)
[2024-11-13 13:25] LABS: Troponin 5 6HR 9.76 ng/L (0-10)
[2024-11-13 13:26] LABS: Troponin 5 6HR Delta -2.24 ng/L (0-12)
--- NOTE | 2024-11-13 16:37 | PM.CONSULT ---
Providers/Reason For Consult Consulting Physician/Specialty*: JUSTIN Menon MD/cardiology Reason for Consult*: Patient with unstable angina/history of atherosclerotic heart disease and previous PCI Requesting Physician: Dr. Mcguire Attending Physician: Barrie Mcguire Primary Care Provider: Cassy Barrera MD History of Present Illness History of Present Illness Beata Rhodes is a 49 year old female with a history of atherosclerotic heart disease and previous PCI, is presenting with complaints of prolonged episode of chest pain. She is admitted to hospital for further evaluation management. Cardiology consult is requested for further cardiac evaluation recommendations. According the patient, she has been at her baseline state of health up until 2 weeks ago when she had the first episode of chest pain lasting for an hour or so. The pain was in the mid substernal area, rating to the left shoulder. The pain meter lasted for an hour or so. She took a total of 3 sublingual nitro which gave complete relief of the symptoms finally. She has been doing okay up until 2:00 this morning when she woke up with chest pain. This time also the pain was confined to the left side of the upper chest radiating to the left neck and left shoulder. Intensity was moderate. Patient took a total of 2 sublingual nitro. There was some relief of pain. The pain has been waxing and waning throughout this morning. So finally she decided to come to the hospital emergency room. She did not have any other associated symptoms or radiation of pain. No nausea or vomiting. She had the last coronary angiogram in 2019 followed by PCI. Review of Systems Narrative: CONSTITUTIONAL: No fever or chills. EYES: No blurring of vision or other visual disturbances lately. ENT: No hoarseness of voice, auditory disturbances or sore throat. CARDIOVASCULAR: As mentioned above. RESPIRATORY: No significant cough. GASTROINTESTINAL: No hematemesis or melena. GENITOURINARY: No dysuria or hematuria. INTEGUMENTARY: No skin rashes or history of skin cancer. NEURO: No transient ischemic attacks or amaurosis. PSYCHIATRIC: No history of psychosis or major depression. HEMATOLOGIC: No bleeding disorders or significant anemia. ENDOCRINE: No history of polyuria or polydipsia. MUSCULOSKELETAL: No recent joint pain or swelling. ALLERGY/IMMUNOLOGY: As mentioned above. Medications/Allergies Home Medications ?Medication ?Instructions ?Recorded ?Confirmed ?Last Taken ?Type blood sugar diagnostic (OneTouch #100 ea 11/03/23 11/13/24 Unknown Rx Ultra Test strips) insulin aspart U-100 100 unit/mL 5 unit (0.05 mL) SUBCUT TID 90 11/03/23 11/13/24 02/08/24 Rx (3 mL) subcutaneous pen (Novolog days #15 mL FlexPen U-100 Insulin aspart) nitroglycerin 0.4 mg sublingual 0.4 mg sublingual Q5M PRN chest 11/03/23 11/13/24 Unknown Rx tablet (Nitrostat) pain #30 tabs carvedilol 12.5 mg tablet 12.5 mg PO BID heart/blood 10/19/24 11/13/24 Unknown Rx pressure #180 tabs ticagrelor 90 mg tablet (Brilinta) 90 mg PO BID circulation #180 tabs 10/19/24 11/13/24 Unknown Rx amlodipine 10 mg tablet 10 mg PO DAILY 11/13/24 11/13/24 Unknown History atorvastatin 40 mg tablet 40 mg PO QPM 11/13/24 11/13/24 Unknown History hydrochlorothiazide 25 mg tablet 25 mg PO DAILY 11/13/24 11/13/24 Unknown History insulin glargine 100 unit/mL (3 20 unit (0.2 mL) SUBCUT BEDTIME 11/13/24 11/13/24 Unknown Rx mL) subcutaneous pen (Lantus #15 mL Solostar U-100 Insulin) isosorbide mononitrate 60 mg 60 mg PO DAILY 11/13/24 11/13/24 Unknown History tablet,extended release 24 hr lisinopril 40 mg tablet 40 mg PO DAILY 11/13/24 11/13/24 Unknown History pen needle, diabetic 31 gauge x #100 ea 11/13/24 11/13/24 Unknown Rx 02/16 (Pen Needle) Allergies Allergy/AdvReac Type Severity Reaction Status Date / Time No Known Allergies Allergy Verified 10/29/24 11:08 Current Medications Generic Name Dose Route Start Last Admin Trade Name Freq PRN Reason Stop Dose Admin Amlodipine Besylate 10 mg 11/13/24 12:15 11/13/24 12:56 Amlodipine 10 Mg Tablet PO 10 mg DAILY MARLA Administration Enoxaparin Sodium 80 mg 11/13/24 12:15 11/13/24 12:56 Enoxaparin 80 Mg/0.8 Ml Syringe 1 mg/kg (80 mg) 80 mg SUBCUT Administration Q12H MARLA Isosorbide Mononitrate 60 mg 11/13/24 12:20 11/13/24 12:57 Isosorbide Mononitrate Er 60 Mg Tablet PO 60 mg DAILY MARLA Administration Pantoprazole Sodium 40 mg 11/13/24 12:00 11/13/24 12:56 Pantoprazole 40 Mg Sdv IVP 40 mg Q24H MARLA Administration PFSH Acute PFSH: Medical History Fatigue Obesity (BMI 30-39.9) 2007 weight 400 pounds CKD stage 3 secondary to diabetes Macular degeneration of both eyes Diabetic retinopathy associated with uncontrolled type 2 diabetes mellitus Hypertension Hyperlipidemia CAD (coronary artery disease) single stent 2018 Surgical History S/P cataract surgery Hx of coronary angioplasty (~09/2019) Hx of cholecystectomy (~09/2008) Hx of section Family History Father Diabetes Hypertension Hyperlipidemia Congestive heart failure (CHF) Mother Lung disease asthma and due to copd Hypertension Denies family history of CAD (coronary artery disease) Clotting disorder Dementia Anesthesia complication Bleeding disorder Cancer Stroke Social History Smoking and tobacco/nicotine status: former use of tobacco/nicotine Quit status (tobacco/nicotine): has quit using Year quit tobacco: 1997 Former quit date comment: smoked 0.5 PPD x 3 yrs Second hand smoke exposure: No Alcohol intake: never Substance/Drug Use: never Caregiver/support person: Yes Lives independently: Yes Household members: significant other Marital status: Life Partner Number of children: 3 Number of grandchildren: 0 Highest education level completed: High School Graduate service: No Current occupational status: unemployed Pets and animals: No Do you think of yourself as: Straight/Heterosexual Current gender identity: Female Kalyani/Anabaptism: None Special kalyani needs: No Agree to transfusion: Yes Female Reproductive History: Date of last menstrual period: 11/04/24 Spontaneous abortions: No Vitals/I&O/Wt Last Vital Signs Temp 98.2 F 11/13/24 06:35 Pulse 85 11/13/24 16:33 Resp 12 11/13/24 16:00 BP 169/80 11/13/24 16:33 Pulse Ox 99 11/13/24 16:33 O2 Del Method Room Air 11/13/24 16:00 Weight last 48 hrs Weight 180 lb Physical Exam Narrative: GENERAL: The patient is alert and oriented times three. Not in any acute distress. HEENT: No significant pallor, icterus or lymphadenopathy.Oral cavity: There are no mucous membrane lesions. NECK: Trachea appears to be central. No masses noted. No JVD or thyromegaly appreciated. RESPIRATORY: Chest is symmetrical. No intercostals muscle retraction or any accessory muscle activation. There is no chest wall tenderness. Breath sounds are heard bilaterally. No rales or rhonchi heard. No evidence of any consolidation. BREASTS: Deferred. HEART: The heart sounds are normal. No S3 or S4. No significant murmurs. No pericardial rub ABDOMEN: No vessel pulsations or distention. No tenderness. No organomegaly appreciated. Bowel sounds are normally heard. : Deferred. RECTAL: Deferred. LYMPHATIC: No lymphadenopathy noted in the neck. EXTREMITIES: No edema or cyanosis. No clubbing. MUSCULOSKELETAL: No acute joint deformities or swelling SKIN: There are no significant rashes or ecchymosis NEUROPSYCHIATRIC: The patient is alert and oriented x3. Appears to be in a good mood. No tremors or rigidity noted. Data 11/14/24 03:40 11/14/24 03:40 Other Labs: Laboratory Last Values WBC 5.94 10^3/uL (3.29-11.43) 11/13/24 06:45 RBC 3.73 10^6/uL (3.85-5.65) L 11/13/24 06:45 Hgb 11.20 g/dL (11.27-16.99) L 11/13/24 06:45 Hct 36.2 % (36-47) 11/13/24 06:45 MCV 97.1 fl (85-98) 11/13/24 06:45 MCH 30.0 pg (27-33) 11/13/24 06:45 MCHC 30.9 g/dL (30-55) 11/13/24 06:45 RDW 13.2 % (12.1-15.1) 11/13/24 06:45 Plt Count 329 10^3/cmm (157-399) 11/13/24 06:45 MPV 9.7 fL (7.4-10.4) 11/13/24 06:45 Neut % (Auto) 69.9 % 11/13/24 06:45 Lymph % (Auto) 15.8 % 11/13/24 06:45 [place] % (Auto) 7.9 % 11/13/24 06:45 Eos % (Auto) 5.2 % 11/13/24 06:45 Baso % (Auto) 1.0 % 11/13/24 06:45 Neut # (Auto) 4.15 10^3/uL (1.8-7.7) 11/13/24 06:45 Lymph # (Auto) 0.9 10^3/uL (0.8-4.8) 11/13/24 06:45 [place] # (Auto) 0.5 10^3/uL (0.2-0.9) 11/13/24 06:45 Eos # (Auto) 0.3 10^3/uL (0.0-0.8) 11/13/24 06:45 Baso # (Auto) 0.1 10^3/uL (0.0-0.1) 11/13/24 06:45 Nucleated RBC % (auto) 0 % 11/13/24 06:45 Nucleated RBCs # 0.0 /100WBC 11/13/24 06:45 Sodium 136 mmol/L (136-145) 11/13/24 06:45 Potassium 4.7 mmol/L (3.5-5.1) 11/13/24 06:45 Chloride 105 mmol/L (98-107) 11/13/24 06:45 Carbon Dioxide 18 mmol/L (22-29) L 11/13/24 06:45 Anion Gap 17.7 (5-19) 11/13/24 06:45 BUN 31 mg/dL (6-20) H 11/13/24 06:45 Creatinine 1.3 mg/dL (0.5-0.9) H 11/13/24 06:45 GFR Calculation 43.4 mL/min (90-130) L 11/13/24 06:45 Glucose 158 mg/dL (65-115) H 11/13/24 06:45 POC Glucose 231 mg/dL (70-110) H 11/13/24 20:35 Calculated Osmolality 292 mOsm/kg (285-295) 11/13/24 06:45 Calcium 9.3 mg/dL (8.5-10.5) 11/13/24 06:45 Total Bilirubin 0.2 mg/dL (0.15-1.2) 11/13/24 06:45 AST 22 U/L (0-32) 11/13/24 06:45 ALT 20 U/L (0-33) 11/13/24 06:45 Alkaline Phosphatase 110 U/L (35-105) H 11/13/24 06:45 Troponin T Baseline 12 ng/L (0-10) H 11/13/24 06:45 Troponin T 120 Minute 10.08 ng/L (0-10) H 11/13/24 09:03 Delta Troponin T -1.92 ABS# (0-10) L 11/13/24 09:03 Troponin T Hi Sens 6Hr 9.76 ng/L (0-10) 11/13/24 12:51 Troponin T Hi Sens 6Hr Delta -2.24 ng/L (0-12) L 11/13/24 12:51 Total Protein 7.1 g/dL (6.6-8.7) 11/13/24 06:45 Albumin 3.7 g/dL (3.5-5.2) 11/13/24 06:45 Globulin 3.4 g/dL (1.3-4.6) 11/13/24 06:45 Urine Color Yellow (Yellow) 11/13/24 06:55 Urine Appearance Clear (CLEAR) 11/13/24 06:55 Urine pH 5.5 (5-7) 11/13/24 06:55 Ur Specific [place] 1.010 (1.005-1.030) 11/13/24 06:55 Urine Protein 2+ (Negative) A 11/13/24 06:55 Urine Glucose (UA) Negative (Normal) 11/13/24 06:55 Urine Ketones Negative (Negative) 11/13/24 06:55 Urine Blood Negative (Negative) 11/13/24 06:55 Urine Nitrate Negative (Negative) 11/13/24 06:55 Urine Bilirubin Negative (Negative) 11/13/24 06:55 Urine Urobilinogen 0.2 mg/dL (Negative) 11/13/24 06:55 Ur Leukocyte Esterase Trace (Negative) A 11/13/24 06:55 Urine RBC 0-2 /hpf (0-2) 11/13/24 06:55 Urine WBC 6-10 /hpf (0-5) 11/13/24 06:55 Ur Squamous Epith Cells 6-10 /hpf (0-5) 11/13/24 06:55 Amorphous Sediment Not Reportable 11/13/24 06:55 Urine Bacteria 1+ /hpf (NONE) H 11/13/24 06:55 Hyaline Casts 0-4 /lpf H 11/13/24 06:55 Coronavirus (PCR) Negative (Negative) 11/13/24 06:50 Influenza A (PCR) Negative (Negative) 11/13/24 06:50 Influenza Type B (PCR) Negative (Negative) 11/13/24 06:50 RSV (PCR) Negative (Negative) 11/13/24 06:50 Other data: The EKG showed a sinus rhythm with possible left atrial enlargement, old septal SD. No acute ST-T changes. A&P Assessment and plan (1) Atherosclerotic heart disease of [place] coronary artery with other forms of angina pectoris: The patient is episodes of chest pain, may suggest unstable angina. However the EKG is unremarkable. No evidence of mitral injury so far. Will do serial cardiac enzymes and EKGs. Patient will be treated with subcu Lovenox, aspirin, beta-swathi, statin, along with other drugs. (2) Hypertension: Currently the blood pressure is elevated. Will optimize the antihypertensive medications. For better control of the blood pressure, I may start her on losartan 50 mg p.o. now and daily Qualifiers: Hypertension type: primary hypertension Qualified Code(s): I10 - Essential (primary) hypertension (3) Hyperlipidemia: May continue on the current medication. 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 Plan Echocardiogram today. If there is no significant wall motion abnormalities, we may consider doing a Myocardial perfusion imaging to further evaluate the chest pain. Based on the results, further recommendations will be made Based on the results of the above tests and the patient's clinical progress, further recommendations will be made. Thank you for the opportunity to evaluate this patient and make these recommendations PDMP PDMP Reviewed: Not Reviewed Consult Attestations Medical Necessity Statement: Patient requires continued hospital stay for close monitoring and further management Coding Level of Care Code 01031 Diagnoses Atherosclerotic heart disease of [place] coronary artery with other forms of angina pectoris I25.118 Primary hypertension I10 Hypertension type: primary hypertension Mixed hyperlipidemia E78.2 Hyperlipidemia type: mixed hyperlipidemia Type 2 diabetes mellitus with other ophthalmic complication, with long-term current use of insulin E11.39; Z79.4 Diabetes mellitus complication detail: with other ophthalmic complication Diabetes mellitus complication status: with ophthalmic complications Diabetes mellitus fdc insulin use: with terminal computer operator use CKD stage 3 secondary to diabetes E11.22; N18.30
[2024-11-13] MEDS: atorvastatin 40 mg Tablet PO (17:20)
[2024-11-13] MEDS: acetaminophen 325 mg Tablet 650 MG PO (17:20)
[2024-11-13] MEDS: ticagrelor 90 mg Tablet PO (17:20)
[2024-11-13] MEDS: carvedilol 12.5 mg Tablet PO (17:20)
[2024-11-13 18:16] LABS: Glucose Point of Care 104 mg/dL (70-110)
[2024-11-13 20:42] LABS: Glucose Point of Care 231 mg/dL (70-110)
[2024-11-13] MEDS: losartan 50 mg Tablet PO (21:11)
[2024-11-13] MEDS: insulin lispro 100 unit/1 mL SUBCUT (21:12)
[2024-11-13] MEDS: insulin glargine 100 units/1 mL 10 UNIT SUBCUT (21:12)
--- NOTE | 2024-11-13 21:18 | ECG_ITS ---
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 Interpretive Statements Lung unchanged pre/post procedure; Intraprocedure shortess of breath; Symptoms resoled by discharge PROCEDURE: At the baseline, the EKG revealed normal sinus rhythm with a poor R wave progression. The baseline heart was 60 bpm with a blood pressue of 184/87 mm of Hg Lexiscan was infused over a period of 20 seconds. A total of 0.4 milligrams of Lexiscan was infused. The stress phase was continued for a total of 5 minutes. Heart rate at the end of the stress phase was 87 bpm with a blood pressure 159/78 mm of Hg. The EKG at the peak infusion revealed no significant changes. Sestamibi was injected 20 seconds after the Lexiscan infusion. Heart rate at the end of the recovery phase was 78 bpm with a blood pressure of 172/78 mm of Hg. CONCLUSION: 1. No significant EKG changes with the LexiScan infusion 2. No LexiScan induced chest pain or cardiac arrhythmia 3. Normal blood pressure and heart rate response 4. Sestamibi/sestamibi perfusion scan pending; see separate report. Electronically Signed On 11-20-2024 07:23:11 [employer] by Pavan Menon M.D. [email or web address]
[2024-11-14] VITALS (15 sets, daily range): BP systolic 115–187; BP diastolic 62–104; PULSE 68–84; RESP 13–23; TEMP 36.6–37.1; O2SAT 93–100
[2024-11-14] MEDS: enoxaparin 80 mg/0.8 mL Syringe SUBCUT (00:07)
[2024-11-14 04:05] LABS: Basophils % 0.7 %; Eosinophils # 0.3 10^3/uL (0.0-0.8); Eosinophils % 4.4 %; Hematocrit 31.4 % (36-47); Lymphocytes # 0.9 10^3/uL (0.8-4.8); Lymphocytes % 14.6 %; Mean Corpuscular HGB Conc 30.6 g/dL (30-55); Mean Corpuscular Hemoglobin 29.3 pg (27-33); Mean Corpuscular Volume 95.7 fl (85-98); Mean Platelet Volume 9.9 fL (7.4-10.4); Monocytes # 0.5 10^3/uL (0.2-0.9); Neutrophils # 4.31 10^3/uL (1.8-7.7); Neutrophils % 72.1 %; Nucleated Red Blood Cells % 0 %; Platelet Count 263 10^3/cmm (157-399); Red Blood Count 3.28 10^6/uL (3.85-5.65); Red Cell Distribution Width 13.2 % (12.1-15.1); White Blood Count 5.97 10^3/uL (3.29-11.43)
[2024-11-14 04:33] LABS: Alanine Aminotransferase 17 U/L (0-33); Albumin Level 3.1 g/dL (3.5-5.2); Alkaline Phosphatase 90 U/L (35-105); Anion Gap 17.7 (5-19); Aspartate Amino Transferase 20 U/L (0-32); Blood Urea Nitrogen 27 mg/dL (6-20); Calcium 8.8 mg/dL (8.5-10.5); Carbon Dioxide 18 mmol/L (22-29); Chloride 108 mmol/L (98-107); Creatinine Clr Calc Pharmacy 55.8836; Globulin 2.8 g/dL (1.3-4.6); Glomerular Filtration Rate 47.6 mL/min (90-130); Glucose 99 mg/dL (65-115); Osmolality Calculated 293 mOsm/kg (285-295); Potassium 4.7 mmol/L (3.5-5.1); Sodium 139 mmol/L (136-145); Total Bilirubin 0.3 mg/dL (0.15-1.2); Total Protein 5.9 g/dL (6.6-8.7)
[2024-11-14 06:22] LABS: Glucose Point of Care 101 mg/dL (70-110)
--- NOTE | 2024-11-14 06:22 | SUR.PREOP ---
STRESS TEST CONTRAINDICATION Patient is on beta swathi therapy within the last 24 hours and is not a canidate for exercise Mibi d/t that fact. Floor notified. Checking to see if she is ammendable to chemical stress testing and to see if she is adequately prepped. The patient is agreeable to changing to lexiscan mibi. Last caffeine intake was around 14 hours ago at this time. Dr Menon notified and agrees to change. Proceeding with lexiscan.
[2024-11-14] MEDS: regadenoson 0.4 Mg/5 ml Syringe IVP (07:08)
--- NOTE | 2024-11-14 08:00 | NMCV_ITS ---
NM sanju perf SPECT r/s* [id number] Beata Rhodes Age: 49 Gender: F : 1975 Exam Date: 11/14/2024 06:41 Ordering Phys: Pavan Menon MD ([email or web address]) Technologist: REGI Mg Exam Location: [facility] Indications: cp STRESS TEST Please see separate stress test report [facility] for full findings IMAGE PROTOCOL Rest/Stress 1 Lexiscan Day Radiopharmaceutical Dose (mCi) Administration Site Administered by Rest: Tc-99m 10.9 IV Sonya Crabtree CREDIT REVIEW ANALYST Sestamibi Stress:Tc-99m 32.5 IV Sonya Crabtree, CREDIT REVIEW ANALYST Sestamibi Rest: 14-Nov-2024 60 Discovery 630 Stress: 14-Nov-2024 30 Discovery 630 0.4mg Lexiscan. Images obtained in supine and prone position. SPECT RESULTS Technical Quality: Good Raw Data Analysis: Normal Image Corrections: No attenuation or motion correction applied Summed Stress Score: 4 Summed Rest Score: 0 Summed Difference Score: 4 PERFUSION FINDINGS Small area of moderately decreased tracer uptake involving the mid and apical inferior wall segment with a significant reversibility FUNCTIONAL RESULTS (calculated via Gated SPECT) Stress Image LV EF (%): 71 Stress EDV (mL):93 TID: 1.13 Stress ESV (mL):27 FUNCTIONAL FINDINGS: Segmental wall motion analysis revealing no gross wall motion abnormalities IMPRESSIONS 1. Myocardial perfusion imaging revealing small area of reversible moderate reversible defect in the inferior wall region suggesting ischemia in the distribution of the right coronary artery 2. Normal LV ejection fraction of 71%. 3. LV wall motion analysis revealing no gross wall motion abnormalities. 4. Normal LV volume Compared to the study from 03/10/2021, there may not be significant change Dr Pavan Menon MD FAC (Electronically Signed) Final Date: 14 November 2024 09:29 S
[2024-11-14 09:35] LABS: D Dimer 0.41 ug/mLFEU (0-0.59)
--- NOTE | 2024-11-14 09:45 | PC.CHAP ---
Pastoral Care Encounter/Spiritual Assessment Type of Contact [] Declined novelty balloon assembler and packer visit [] Patient/Family/Request visit [] Outpatient visit [] Follow-up visit [] Physician referral [] Code/Alert [x] Routine visit [] Staff referral [] Actively dying [] Patient sleeping [] Family support [] [] Out of room [] Palliative care [] [] Receiving care in room [] Pre-surgical visit [] Trauma [] Long length of stay [] ICU visit [] Other: Relational/Emotional Strength [x] Patient feels connected with others/family/visitors/staff [] Distress [] Loneliness/isolation [] Abandonment Spirituality of Patient [x] Person of Kalyani [] Attends [employer]itan of their Kalyani [x] Believes in Prayer [] Reads Bible or Voodoo materials [] There are Spiritual issues to be addressed Corporate Communications Intern Interventions [x] Prayer [x] Active listening [x] Non-anxious presence [x] Spiritual/emotional support [] Crisis/trauma care [] Spiritual counseling [] Bereavement support [] Provided bereavement packet [] Provided Bible/devotional materials [] Provided toy/stuffed animal, coloring book to patient or family member [] Provided Communion [] Anointing/[place] [] Salvation [x] Completed spiritual assessment [] Other: Impact on Illness or Injury [] Angry [] Fearful [] Anxious [] Often cries [] Exhaustion [] Unable to work [] Unable to attend congregational [] Unable to walk/stand [] Unable to read [] Unable to drive [] Unable to eat/drink [] Unable to sleep [] Unable to be with family [] Patient intubated [] Other: Summary Time spent with patient 5 min
[2024-11-14] MEDS: losartan 50 mg Tablet PO (09:52)
[2024-11-14] MEDS: isosorbide mononitrate ER 60 mg Tablet PO (09:52)
[2024-11-14] MEDS: amlodipine 10 mg Tablet PO (09:52)
[2024-11-14] MEDS: ticagrelor 90 mg Tablet PO ×2 (09:53→18:32)
[2024-11-14] MEDS: carvedilol 12.5 mg Tablet PO ×2 (09:53→18:32)
--- NOTE | 2024-11-14 10:00 | P.PN_ITS ---
Vitals/I&O/Wt Last Vital Signs Temp 98.0 F 11/14/24 08:00 Pulse 74 11/14/24 08:00 Resp 16 11/14/24 08:00 BP 169/104 11/14/24 09:52 Pulse Ox 100 11/14/24 08:00 O2 Del Method Room Air 11/14/24 08:00 11/13/24 11/14/24 11/14/24 22:59 06:59 14:59 Intake Total 1550 / 1550 0 / 1550 360 / 360 Balance 1550 / 1550 0 / 1550 360 / 360 Weight last 48 hrs Weight 82.639 kg Weight 82.639 kg Weight 81.647 kg Physical Exam 2 Narrative: Accompanied by her . Const: COMMON NORMALS: patient oriented x3 and alert GENERAL APPEARANCE: c ooperative ORIENTATION/CONSCIOUSNESS: Yes awake HENMT: COMMON NORMALS: oropharynx normal Neck/C-Spine: COMMON NORMALS: no JVD Resp: COMMON NORMALS: normal respiratory effort and clear to auscultation bilaterally AUSCULTATION: clear to auscultation bilaterally Cardio: COMMON NORMALS: no JVD, regular rhythm, S1 normal heart sound present, S2 normal heart sound present and No murmurs present (Cardio) RHYTHM: regular rhythm HEART SOUNDS: S1 normal heart sound present and S2 normal heart sound present GI: COMMON NORMALS: Normal to inspection, nondistended, normoactive bowel sounds present, Soft to palpation and non-tender PALPATION: Yes Soft to palpation Extremity: COMMON NORMALS: no joint enlargement and no pedal edema Neuro: COMMON NORMALS: patient oriented x3 and moves all extremities S ENSORIUM/ORIENTATION: Yes alert Skin: COMMON NORMALS: no rashes or lesions noted GENERAL SKIN EXAM: no rashes or lesions noted Data 11/14/24 03:40 11/14/24 03:40 A&P Assessment and plan (1) Unstable angina pectoris: Currently she is free of chest pain. Had a stress test this morning, with noted small area of reversible moderate dorsal defect in the inferior wall region suggesting ischemia in the distribution of RCA. EF 71%. Reviewed echocardiogram. Discussed with oxidation engineer. She has reported more frequent symptoms recently, and with abnormal stress test, cardiology may further discuss options with her for additional risk stratification with consideration of coronary angiogram. Add aspirin. Continue anticoagulation for now, monitor for risk of bleeding. Reassess blood counts. Additionally discussed with her obtaining D-dimer this morning. D-dimer requested, reviewed, returning normal. Continue Brilinta, carvedilol, atorvastatin, Imdur, losartan. Continue to optimize blood pressure control. Plan HTN: Reviewed blood pressure, earlier this morning elevated 187/82. Currently slightly better but still elevated 169/104. Resume HCTZ. Continue carvedilol, amlodipine, lisinopril HLD: Continue statin DM2: insulin Lantus at 10 units nightly, sliding scale insulin. PDMP PDMP Reviewed: Not Reviewed Attestations 2 Medical Necessity Statement*: Continue admission for assessment management of progression of coronary disease with recently more frequent anginal symptoms, with abnormal stress test. and High MDM includes amount and/or complexity of data reviewed/ordered [ previous or external records, resulted lab(s)/test(s), ordered lab(s)/test(s) and other healthcare professional discussion] and described risk of complication, morbidity or mortality of management as documented Diagnoses Unstable angina pectoris I20.0
--- NOTE | 2024-11-14 10:22 | PC.NURSE ---
rounding with provider; Plan for angiogram later this evening or in the am patient to remain PTO unitl known time for procedure instruction to start normal saline at 75mls per hour for pre cath hydration due to elevated creatinine
[2024-11-14] MEDS: sodium chloride 0.9% 1,000 ML 75 ML IV (10:40)
[2024-11-14 11:43] LABS: Glucose Point of Care 219 mg/dL (70-110)
--- NOTE | 2024-11-14 12:48 | PM.PN ---
Subjective Subjective: Patient has a Myocardial perfusion imaging today. She was found to have small to moderate area of ischemia in the distribution of the right coronary artery. She continues to have episodes of chest discomfort. Medications: Medication Review Details: Current Medications Acetaminophen (Acetaminophen 325 Mg Tablet) 650 mg PO Q6H PRN PRN Reason: Mild/Mod Pain Or Temp >/= 101 Last Admin: 11/13/24 17:20 Dose: 650 mg Aminophylline (Aminophylline 25 Mg/Ml Sdv 20 Ml) 25 mg IVP Q2M PRN PRN Reason: see dose instructions Stop: 11/15/24 06:28 Amlodipine Besylate (Amlodipine 10 Mg Tablet) 10 mg PO DAILY [facility] Last Admin: 11/14/24 09:52 Dose: 10 mg Aspirin (Aspirin 325 Mg Tablet) 325 mg PO DAILY [facility] Atorvastatin Calcium (Atorvastatin 40 Mg Tablet) 40 mg PO QPM [facility] Last Admin: 11/13/24 17:20 Dose: 40 mg Carvedilol (Carvedilol 12.5 Mg Tablet) 12.5 mg PO BID [facility] Last Admin: 11/14/24 09:53 Dose: 12.5 mg Enoxaparin Sodium (Enoxaparin 80 Mg/0.8 Ml Syringe) 80 mg 1 mg/kg (80 mg) SUBCUT Q12H [facility] Last Admin: 11/14/24 00:07 Dose: 80 mg Glucagon (Glucagon 1 Mg/Ml Kit 1 Ml) 1 mg IM ONCE PRN; Protocol PRN Reason: Adult Acute Hypoglycemia Nursing Prot. Hydrochlorothiazide (Hydrochlorothiazide 25 Mg Tablet) 25 mg PO DAILY [facility] Dextrose (D5w) 500 mls @ 0 mls/hr IV ONCE PRN; Protocol PRN Reason: Adult Acute Hypoglycemia Prot Dextrose (D10w) 125 mls @ 750 mls/hr IV PRN PRN; Protocol PRN Reason: Adult Acute Hypoglycemia Nursing Protocol Dextrose (D10w) 250 mls @ 1,000 mls/hr IV PRN PRN; Protocol PRN Reason: Adult Acute Hypoglycemia Nursing Protocol Sodium Chloride (Sodium Chloride 0.9%) 1,000 mls @ 75 mls/hr IV .[id number] [facility] Last Admin: 11/14/24 10:40 Dose: 75 mls/hr Insulin Glargine (Insulin Glargine 100 Units/1 Ml) 10 unit SUBCUT BEDTIME [facility] Last Admin: 11/13/24 21:12 Dose: 10 unit Insulin Human Lispro (Insulin Lispro 100 Unit/1 Ml) 0 unit SUBCUT WM&BEDTIME [facility]; Protocol Last Admin: 11/14/24 07:06 Dose: Not Given Isosorbide Mononitrate (Isosorbide Mononitrate Er 60 Mg Tablet) 60 mg PO DAILY [facility] Last Admin: 11/14/24 09:52 Dose: 60 mg Losartan Potassium (Losartan 50 Mg Tablet) 50 mg PO DAILY [facility] Last Admin: 11/14/24 09:52 Dose: 50 mg Nitroglycerin (Nitroglycerin 0.4 Mg Sublingual Tablet) 0.4 mg SUBLINGUAL Q5M PRN PRN Reason: chest pain Nitroglycerin (Nitroglycerin 0.4 Mg Sublingual Tablet) 0.4 mg SUBLINGUAL Q5M PRN PRN Reason: CHEST PAIN Stop: 11/15/24 06:28 Ondansetron HCl (Ondansetron 2 Mg/Ml Sdv 2 Ml) 4 mg IVP Q8H PRN PRN Reason: vomiting, or N/V if npo Ondansetron HCl (Ondansetron 2 Mg/Ml Sdv 2 Ml) 4 mg IVP Q2M PRN PRN Reason: NAUSEA Pantoprazole Sodium (Pantoprazole 40 Mg Sdv) 40 mg IVP Q24H [facility] Last Admin: 11/13/24 12:56 Dose: 40 mg Ticagrelor (Ticagrelor 90 Mg Tablet) 90 mg PO BID [facility] Last Admin: 11/14/24 09:53 Dose: 90 mg Vitals/I&O/Wt Last Vital Signs Temp 98.6 F 11/14/24 11:32 Pulse 70 11/14/24 11:32 Resp 23 H 11/14/24 11:32 BP 146/77 11/14/24 11:32 Pulse Ox 98 11/14/24 11:32 O2 Del Method Room Air 11/14/24 11:32 11/13/24 11/14/24 11/14/24 22:59 06:59 14:59 Intake Total 1550 / 1550 0 / 1550 360 / 360 Balance 1550 / 1550 0 / 1550 360 / 360 Weight last 48 hrs Weight 182 lb 3 oz Weight 182 lb 3 oz Weight 180 lb Physical Exam Narrative: GENERAL: The patient is alert and oriented times three. Not in any acute distress. HEENT: No significant pallor, icterus or lymphadenopathy.Oral cavity: There are no mucous membrane lesions. NECK: Trachea appears to be central. No masses noted. No JVD or thyromegaly appreciated. RESPIRATORY: Chest is symmetrical. No intercostals muscle retraction or any accessory muscle activation. There is no chest wall tenderness. Breath sounds are heard bilaterally. No rales or rhonchi heard. No evidence of any consolidation. BREASTS: Deferred. HEART: The heart sounds are normal. No S3 or S4. No significant murmurs. No pericardial rub ABDOMEN: No vessel pulsations or distention. No tenderness. No organomegaly appreciated. Bowel sounds are normally heard. : Deferred. RECTAL: Deferred. LYMPHATIC: No lymphadenopathy noted in the neck. EXTREMITIES: No edema or cyanosis. No clubbing. MUSCULOSKELETAL: No acute joint deformities or swelling SKIN: There are no significant rashes or ecchymosis NEUROPSYCHIATRIC: The patient is alert and oriented x3. Appears to be in a good mood. No tremors or rigidity noted. Data 11/14/24 03:40 11/14/24 03:40 Other Labs: Laboratory Last Values WBC 5.97 10^3/uL (3.29-11.43) 11/14/24 03:40 RBC 3.28 10^6/uL (3.85-5.65) L 11/14/24 03:40 Hgb 9.60 g/dL (11.27-16.99) L 11/14/24 03:40 Hct 31.4 % (36-47) L 11/14/24 03:40 MCV 95.7 fl (85-98) 11/14/24 03:40 MCH 29.3 pg (27-33) 11/14/24 03:40 MCHC 30.6 g/dL (30-55) 11/14/24 03:40 RDW 13.2 % (12.1-15.1) 11/14/24 03:40 Plt Count 263 10^3/cmm (157-399) 11/14/24 03:40 MPV 9.9 fL (7.4-10.4) 11/14/24 03:40 Neut % (Auto) 72.1 % 11/14/24 03:40 Lymph % (Auto) 14.6 % 11/14/24 03:40 [place] % (Auto) 8.0 % 11/14/24 03:40 Eos % (Auto) 4.4 % 11/14/24 03:40 Baso % (Auto) 0.7 % 11/14/24 03:40 Neut # (Auto) 4.31 10^3/uL (1.8-7.7) 11/14/24 03:40 Lymph # (Auto) 0.9 10^3/uL (0.8-4.8) 11/14/24 03:40 [place] # (Auto) 0.5 10^3/uL (0.2-0.9) 11/14/24 03:40 Eos # (Auto) 0.3 10^3/uL (0.0-0.8) 11/14/24 03:40 Baso # (Auto) 0.0 10^3/uL (0.0-0.1) 11/14/24 03:40 Nucleated RBC % (auto) 0 % 11/14/24 03:40 Nucleated RBCs # 0.0 /100WBC 11/14/24 03:40 D-Dimer 0.41 ug/mLFEU (0-0.59) 11/14/24 08:35 Sodium 139 mmol/L (136-145) 11/14/24 03:40 Potassium 4.7 mmol/L (3.5-5.1) 11/14/24 03:40 Chloride 108 mmol/L (98-107) H 11/14/24 03:40 Carbon Dioxide 18 mmol/L (22-29) L 11/14/24 03:40 Anion Gap 17.7 (5-19) 11/14/24 03:40 BUN 27 mg/dL (6-20) H 11/14/24 03:40 Creatinine 1.2 mg/dL (0.5-0.9) H 11/14/24 03:40 GFR Calculation 47.6 mL/min (90-130) L 11/14/24 03:40 Glucose 99 mg/dL (65-115) 11/14/24 03:40 POC Glucose 219 mg/dL (70-110) H 11/14/24 11:34 Calculated Osmolality 293 mOsm/kg (285-295) 11/14/24 03:40 Calcium 8.8 mg/dL (8.5-10.5) 11/14/24 03:40 Total Bilirubin 0.3 mg/dL (0.15-1.2) 11/14/24 03:40 AST 20 U/L (0-32) 11/14/24 03:40 ALT 17 U/L (0-33) 11/14/24 03:40 Alkaline Phosphatase 90 U/L (35-105) 11/14/24 03:40 Troponin T Baseline 12 ng/L (0-10) H 11/13/24 06:45 Troponin T 120 Minute 10.08 ng/L (0-10) H 11/13/24 09:03 Delta Troponin T -1.92 ABS# (0-10) L 11/13/24 09:03 Troponin T Hi Sens 6Hr 9.76 ng/L (0-10) 11/13/24 12:51 Troponin T Hi Sens 6Hr Delta -2.24 ng/L (0-12) L 11/13/24 12:51 Total Protein 5.9 g/dL (6.6-8.7) L 11/14/24 03:40 Albumin 3.1 g/dL (3.5-5.2) L 11/14/24 03:40 Globulin 2.8 g/dL (1.3-4.6) 11/14/24 03:40 Urine Color Yellow (Yellow) 11/13/24 06:55 Urine Appearance Clear (CLEAR) 11/13/24 06:55 Urine pH 5.5 (5-7) 11/13/24 06:55 Ur Specific [place] 1.010 (1.005-1.030) 11/13/24 06:55 Urine Protein 2+ (Negative) A 11/13/24 06:55 Urine Glucose (UA) Negative (Normal) 11/13/24 06:55 Urine Ketones Negative (Negative) 11/13/24 06:55 Urine Blood Negative (Negative) 11/13/24 06:55 Urine Nitrate Negative (Negative) 11/13/24 06:55 Urine Bilirubin Negative (Negative) 11/13/24 06:55 Urine Urobilinogen 0.2 mg/dL (Negative) 11/13/24 06:55 Ur Leukocyte Esterase Trace (Negative) A 11/13/24 06:55 Urine RBC 0-2 /hpf (0-2) 11/13/24 06:55 Urine WBC 6-10 /hpf (0-5) 11/13/24 06:55 Ur Squamous Epith Cells 6-10 /hpf (0-5) 11/13/24 06:55 Amorphous Sediment Not Reportable 11/13/24 06:55 Urine Bacteria 1+ /hpf (NONE) H 11/13/24 06:55 Hyaline Casts 0-4 /lpf H 11/13/24 06:55 Coronavirus (PCR) Negative (Negative) 11/13/24 06:50 Influenza A (PCR) Negative (Negative) 11/13/24 06:50 Influenza Type B (PCR) Negative (Negative) 11/13/24 06:50 RSV (PCR) Negative (Negative) 11/13/24 06:50 Other data: 1. Myocardial perfusion imaging revealing small area of reversible moderate reversible defect in the inferior wall region suggesting ischemia in the distribution of the right coronary artery 2. Normal LV ejection fraction of 71%. 3. LV wall motion analysis revealing no gross wall motion abnormalities. 4. Normal LV volume Compared to the study from 6 A&P Assessment and plan (1) Atherosclerotic heart disease of [place] coronary artery with other forms of angina pectoris: The patient is episodes of chest pain, may suggest unstable angina. However the EKG is unremarkable. No evidence of mitral injury so far. Will do serial cardiac enzymes and EKGs. Patient will be treated with subcu Lovenox, aspirin, beta-swathi, statin, along with other drugs. The results of Myocardial perfusion imaging were discussed with the patient in detail. The option of continuing medical treatment versus doing an angiogram to further evaluate the coronary status were discussed. Patient is wanting to go ahead with the angiogram to know for sure. She is concerned about the ongoing recurrent episodes of chest pain. (2) Hypertension: Currently the blood pressure is elevated. Will optimize the antihypertensive medications. For better control of the blood pressure, I may start her on losartan 50 mg p.o. now and daily Qualifiers: Hypertension type: primary hypertension Qualified Code(s): I10 - Essential (primary) hypertension (3) Hyperlipidemia: May continue on the current medication. Qualifiers: Hyperlipidemia type: mixed hyperlipidemia Qualified Code(s): E78.2 - Mixed hyperlipidemia (4) Type 2 diabetes mellitus: Aggressive management of the diabetes would be appropriate Qualifiers: Diabetes mellitus complication detail: with other ophthalmic complication Diabetes mellitus complication status: with ophthalmic complications Diabetes mellitus long winder tender insulin use: with long winder tender use Qualified Code(s): E11.39 - Type 2 diabetes mellitus with other diabetic ophthalmic complication; Z79.4 - [facility]CI (current) use of insulin (5) CKD stage 3 secondary to diabetes: Patient will be carefully hydrated. Plan In view of the patient's ongoing symptoms, it may be appropriate to go ahead with the cardiac catheterization the risk of bleeding, hematoma, vascular injury, myocardial infarction, myocardial perforation, malignant cardiac arrhythmias ,CVA, renal failure and other concomitant complications were explained in detail. In view of the chronic kidney disease, she carries a higher risk for contrast-induced nephropathy. Patient understand this well. Based on the angiogram findings, further recommendations will be made. PDMP PDMP Reviewed: Not Reviewed Attestations Medical Necessity Statement*: Patient requires continued hospital stay for close monitoring and further management Coding Level of Care Code 96691 Diagnoses Atherosclerotic heart disease of [place] coronary artery with other forms of angina pectoris I25.118 Primary hypertension I10 Hypertension type: primary hypertension Mixed hyperlipidemia E78.2 Hyperlipidemia type: mixed hyperlipidemia Type 2 diabetes mellitus with other ophthalmic complication, with long-term current use of insulin E11.39; Z79.4 Diabetes mellitus complication detail: with other ophthalmic complication Diabetes mellitus complication status: with ophthalmic complications Diabetes mellitus long winder tender insulin use: with long winder tender use CKD stage 3 secondary to diabetes E11.22; N18.30
[2024-11-14] MEDS: aspirin 325 mg Tablet PO (13:03)
[2024-11-14] MEDS: pantoprazole 40 mg SDV IVP (13:04)
--- NOTE | 2024-11-14 13:11 | PC.NURSE ---
Marychuy held at this time per Doctor saul
--- NOTE | 2024-11-14 16:13 | XACV_ITS ---
Exam Room: 2 Ht: 157 cm Wt: 83 kg BSA: 1.94 m2 Gender: Female : 1975 Any Known Allergies: No known allergies Exam Priority: Routine Procedure(s): Procedure Description: Diagnostic procedure Procedure Description: Left Heart Catheterization Procedure Description: Coronary Angiography Sinan FORTE; Diagnostic Cath Status: Elective Diagnostic Findings * Left main is a medium caliber vessel with minimal intimal irregularities. No significant stenotic lesions. * The left artery descending artery is a medium caliber elongated vessel which appears to wraparound the LV apex. The proximal and the mid LAD segments of the left and descending artery was found to have mild diffuse disease. No significant stenotic lesions. Moderate diffuse calcification was noted in the proximal segment of the artery.. * The left circumflex artery is a medium caliber vessel which was found to be giving of a high obtuse marginal branch. It was around 30 to 40% diffuse narrowing in the proximal segment. The mid circumflex also was found to have mild diffuse disease. No significant stenotic lesions were noted. * The right coronary artery is a medium caliber dominant vessel which appears to have mild diffuse disease proximally. At the mid segment of the artery, it the RCA proper was found to be bifurcating to PDA and PLV branch. The proximal PDA was found to have a stented segment which was widely patent. Minimal relative's were noted in the PDA and PLV branches. No other significant stenotic lesions.. Conclusions 1. 49-year-old female with history of atherosclerotic heart diseas, present with increasing episodes of chest pains. She had a Myocardial perfusion imaging which revealed as moderate ischemia in the distribution of the right coronary artery. For further evaluation of the patient is her coronary status, in view of the ongoing symptoms, a cardiac catheterization was recommended. Patient underwent left heart catheterization with left and right coronary angiogram today. The findings are as follows. 2. Mild diffuse disease in the left main, left anterior descending and circumflex arteries. Moderate calcification in the proximal segment of the left anterior descending artery. Patent stented segment of the proximal PDA. LVEDP of 20 mmHg. Diagnostic RX Recommendation: medical therapy and/or counseling LV EDP: 20 mmHg Left Ventriculography Findings: * The LV gram was not performed because of the patient's chronic kidney disease. Pressures Phase:Rest AO : 120 / 70 ( 92 ) @ 4:54:00 PM 151 / 75 ( 111 ) @ 5:05:00 PM 150 / 72 ( 104 ) @ 5:05:00 PM LV : 141 / 0 / 20 @ 5:04:00 PM 148 / 0 / 22 @ 5:05:00 PM Valves Phase:DefaultPhase AV : 0.0 @ 5:10:36 PM AV Mean Gradient: 0.0 @ 5:10:36 PM Clinical Evaluation EBL: 5mL-10mL Procedural Details Procedure Consent Obtained. Admit Source: In Patient. Pre-Procedure Time Out. Identified patient by full name and date of as verbalized by the patient/guarantor. Does the consent match the physician's order: Yes. Accurate & Complete Informed Consent: Yes. Inpatient/Outpatient History & Physical on Chart: Yes. If H&P is completed, is and addenduem needed: No; If yes, is the addendum complete: N/A. Visualize and Verify Site with Patient/Guarantor: N/A. Relevant Radiology Images available: No. The risks, benefits, and alternatives of sedation and/or procedure were discussed by physician. The patient agrees to continue. Procedure started. [facility] Clinical Fraility Score: 3: Managing Well. 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 Chest Pain Symptom Assessment: Typical Angina Symptoms. Correct patient, site and procedure confirmed by cath team. Current diagnosis: Chest Pain, Abnormal stress test. PERRLA. Strong, equal hand communications officer bilaterally. Lungs clear x 5 lobes. IV Site on Arrival: 20 gauge in the right anticubital. IV Fluids: 0.9% NaCl at KVO. 400 mL infused prior to laborer plumbing. Pre Procedural Pulses: bilateral radial was 3+. Pre Procedural Pulses: bilateral dorsalis pedis was 3+. Oxygen started at 2liters/min via nasal canula. right radial was prepped with chloroprep then draped in the usual sterile fashion. right groin was prepped with chloroprep then draped in the usual sterile fashion. Baseline sample Acquired. HR: 71 BPM. Physician notified. Physician arrived. Physician scrubbed in. Immediate Pre-Procedure Time Out. Correct Patient: Yes; Correct Procedure: Yes; Correct Site: Yes; Correct Patient Position: Yes; Correct Supplies: Yes; Dried Flammable Prep: Yes; Blood Products Available: No;. Lidocaine 1% infiltrated to the right radial. Arterial access obtained. A 5 divehi Dlel catheter in over wire. Multiple views taken of left coronary artery. Catheter redirected to the RCA. Catheter removed over the exchange wire. A 5 divehi JR4 catheter in over wire. Multiple views taken of right coronary artery. EDP Sample taken: LV 141/0,20; HR: 86 BPM; SpO2: 92%. Pullback taken: LV 148/-1,22; AO 151/75(111); Mean: 0mmHg, Peak to Peak: 0mmHg, SEP: 19sec/min; HR: 88 BPM; SpO2: 93%. Catheter removed over the exchange wire. Post Procedure: Pulses reassessed and unchanged. PERRLA. Strong, equal hand communications officer bilaterally. No VTE prophylaxis required. Medication's Wasted: Lidocaine 1% = 18 mL. Medication's Wasted: Nitro = 49.8 mg. Medication's Wasted: Heparin = 1000 unit. Medication's Wasted: Other = Fentanyl 25mcg. Total IV fluids: 30 mL. A TR Band was successful obtaining hemostatsis at the Right Radial artery insertion site. Post-op diagnosis: Non obstructive CAD. Complications: None. Estimated blood loss: 5mL-10mL. Responsiveness - Normal response to verbal stimuli; alert and oriented, PERRLA. Airway - Unaffected, no intervention required; spontaneous ventilation. Circulation: W/N/L, pulses unchanged. Nausea/Vomiting: No. Procedure completed. Patient transferred by bed to 1st floor. Vital chart was stopped. Access Site Site: Right Radial artery Sheath Size: 6 Fr Hemostasis Method: TR Band Hemostasis Success: Successful Procedure Medications Start: 4:42 PM Stop: 4:42 PM Medication: Benadryl Amount: 25 mg Route: I.V. Start: 4:44 PM Stop: 4:44 PM Medication: Versed Amount: 1 mg Route: I.V. Start: 4:44 PM Stop: 4:44 PM Medication: Fentanyl Amount: 50 mcg Route: I.V. Start: 4:47 PM Stop: 4:47 PM Medication: Versed Amount: 1 mg Route: I.V. Start: 4:50 PM Stop: 4:50 PM Medication: Fentanyl Amount: 25 mcg Route: I.V. Start: 4:51 PM Stop: 4:51 PM Medication: Verapamil Amount: 5 mg Route: I.A. Start: 4:51 PM Stop: 4:51 PM Medication: Nitrogylcerin Amount: 200 mcg Route: I.A. Start: 4:55 PM Stop: 4:55 PM Medication: Heparin Amount: 5000 units Route: I.V. I, the attending physician, have reviewed and verified all procedure medications. Yes, all medications given per verbal order History/Risk Factors Hypertension: Yes Dyslipidemia: Yes Peripheral Arterial Disease (PAD): No Myocardial Infarction (ND): No Obesity: Yes Renal Disease: No Tobacco Use: Former Prior Interventions PCI: Yes CABG: No Valve Surgery: No Report Signatures Finalized by Dr Pavan Menon MD [facility] on 11/15/2024 06:57 PM
--- NOTE | 2024-11-14 16:37 | W.PM.OPSUD ---
Surgery/Procedure H&P Update DATE OF PROCEDURE: November 14, 2024 DATE H&P PERFORMED: 11/13/24 H&P UPDATE INFORMATION: I have reviewed H&P completed within last 30 days, I have examined patient prior to procedure and No changes to prior documentation PREOP DIAGNOSIS: ashd PRIMARY INDICATION FOR PROCEDURE: Unstable angina/abnormal Myocardial perfusion imaging PLANNED PROCEDURE: Left heart catheterization with coronary angiogram and possible PCI PATIENT REASSESSED PRIOR TO SEDATION, WITH NO CHANGE NOTED: Yes PHYSICAL EXAM: alert, oriented x 3, clear to auscultation bilaterally and regular rate & rhythm AIRWAY EVAL/ANESTHESIA PLAN: normal airway, see other exam findings, Monitored Anesthesia, Local Anesthesia, Risks, benefits & alternatives of sedation and/or procedure discussed and Patient agrees to continue as planned
--- NOTE | 2024-11-14 17:11 | PM.OP ---
Operative Report Date of procedure: November 14, 2024 Surgeon: Pavan Menon MD Procedure: This patient underwent left heart catheterization with left and right coronary angiogram. She was found to have patent stented segment of the right coronary artery. Mild disease in the other vessels. LVEDP of 20 mmHg. Based on the angiogram findings, she will be treated medically.
[2024-11-14] MEDS: atorvastatin 40 mg Tablet PO (18:32)
[2024-11-14 18:36] LABS: Glucose Point of Care 163 mg/dL (70-110)
[2024-11-14] MEDS: insulin lispro 100 unit/1 mL SUBCUT ×2 (18:36→21:23)
[2024-11-14 21:07] LABS: Glucose Point of Care 223 mg/dL (70-110)
[2024-11-14] MEDS: insulin glargine 100 units/1 mL 10 UNIT SUBCUT (21:23)
[2024-11-15] VITALS: BP 121/68; PULSE 70; RESP 18; TEMP 36.6; O2SAT 95
[2024-11-15 04:00] VITALS: BP 147/83; PULSE 68; RESP 18; TEMP 36.8; O2SAT 99
[2024-11-15 04:27] LABS: Basophils % 0.7 %; Eosinophils # 0.3 10^3/uL (0.0-0.8); Eosinophils % 4.8 %; Hematocrit 31.6 % (36-47); Lymphocytes # 0.9 10^3/uL (0.8-4.8); Lymphocytes % 15.8 %; Mean Corpuscular HGB Conc 30.1 g/dL (30-55); Mean Corpuscular Hemoglobin 28.8 pg (27-33); Mean Corpuscular Volume 95.8 fl (85-98); Mean Platelet Volume 9.9 fL (7.4-10.4); Monocytes # 0.5 10^3/uL (0.2-0.9); Monocytes % 9.3 %; Neutrophils # 3.72 10^3/uL (1.8-7.7); Neutrophils % 69.2 %; Nucleated Red Blood Cells % 0 %; Platelet Count 261 10^3/cmm (157-399); Red Cell Distribution Width 13.2 % (12.1-15.1); White Blood Count 5.38 10^3/uL (3.29-11.43)
[2024-11-15 04:55] LABS: Alanine Aminotransferase 17 U/L (0-33); Albumin Level 3.1 g/dL (3.5-5.2); Alkaline Phosphatase 93 U/L (35-105); Anion Gap 15.7 (5-19); Aspartate Amino Transferase 18 U/L (0-32); Blood Urea Nitrogen 28 mg/dL (6-20); Calcium 8.7 mg/dL (8.5-10.5); Carbon Dioxide 18 mmol/L (22-29); Chloride 107 mmol/L (98-107); Creatinine Clr Calc Pharmacy 47.9002; Globulin 2.7 g/dL (1.3-4.6); Glomerular Filtration Rate 39.8 mL/min (90-130); Glucose 173 mg/dL (65-115); Osmolality Calculated 292 mOsm/kg (285-295); Potassium 4.7 mmol/L (3.5-5.1); Sodium 136 mmol/L (136-145); Total Bilirubin 0.2 mg/dL (0.15-1.2); Total Protein 5.8 g/dL (6.6-8.7)
[2024-11-15 05:50] VITALS: PULSE 69
[2024-11-15 06:12] LABS: Glucose Point of Care 161 mg/dL (70-110)
[2024-11-15] MEDS: insulin lispro 100 unit/1 mL SUBCUT (07:44)
[2024-11-15] MEDS: ticagrelor 90 mg Tablet PO (07:44)
[2024-11-15] MEDS: carvedilol 12.5 mg Tablet PO (07:44)
[2024-11-15 07:45] VITALS: BP 171/87
[2024-11-15] MEDS: hydroCHLOROthiazide 25 mg Tablet PO (07:45)
[2024-11-15] MEDS: isosorbide mononitrate ER 60 mg Tablet PO (07:45)
[2024-11-15] MEDS: aspirin 325 mg Tablet PO (07:45)
[2024-11-15] MEDS: losartan 50 mg Tablet PO (07:45)
[2024-11-15] MEDS: amlodipine 10 mg Tablet PO (07:45)
[2024-11-15 09:21] VITALS: BP 171/87; PULSE 77; RESP 22
--- NOTE | 2024-11-15 09:57 | PM.DCS ---
Discharge Providers Date of Admission: 11/13/24 11:20 Date of Discharge: November 15, 2024 Attending Provider at Admission: Barrie Mcguire Attending Provider at Discharge: Barrie Mcguire Primary Care Provider: Cassy Barrera MD Diagnoses at Discharge Discharge Diagnosis (1) Atherosclerotic heart disease of [place] coronary artery with other forms of angina pectoris: Status: Acute (2) Hypertension: Status: Acute Qualifiers: Hypertension type: primary hypertension Qualified Code(s): I10 - Essential (primary) hypertension (3) Hyperlipidemia: Status: Acute Qualifiers: Hyperlipidemia type: mixed hyperlipidemia Qualified Code(s): E78.2 - Mixed hyperlipidemia (4) Type 2 diabetes mellitus: Status: Acute Qualifiers: Diabetes mellitus alf insulin use: with terminal operations supervisor use Diabetes mellitus complication status: with ophthalmic complications Diabetes mellitus complication detail: with other ophthalmic complication Qualified Code(s): E11.39 - Type 2 diabetes mellitus with other diabetic ophthalmic complication; Z79.4 - terminal carman (current) use of insulin (5) CKD stage 3 secondary to diabetes: Status: Acute Reason for Visit Reason for Visit: cp,pain in left harm,numb and tingling in hand/arm Brief History: 49-year-old lady with history of CKD 3, HTN commensurately, CAD, 1 prior stent, on aspirin and Brilinta, follows with cardiology clinic, has experienced chest pain symptoms with exertion over the last few weeks, but now also had an episode of chest pain at rest which woke her up this morning, which did not initially respond to nitroglycerin, but gradually getting better. She is still having mild discomfort currently. Baseline troponin 12, 2-hour troponin 10. EKG with low QRS voltage in precordial leads. Chest x-ray unremarkable. She is hypertensive, 174/84, when asked about her blood pressures at home, reports longstanding history of hypertension. Hospital Course Hospital Course She was admitted and started on treatment for possible stable angina including anticoagulation with Lovenox, continue on Brilinta, continued on antihypertensives including carvedilol, continue on statin. D-dimer was assessed and was not elevated. She was monitored on telemetry. Echocardiogram was obtained, she was found to have normal ejection fraction, mild MVR, trace TVR, no pericardial effusion. She was assessed by cardiology, underwent additional assessment with stress testing, was found to have small area of reversible moderate defect in inferior wall region suggesting ischemia in the distribution of RCA. Normal EF, LV motion elicits without gross wall motion abnormalities. Given increase in chest pain episodes recently further options were discussed by her with cardiology and she underwent assessment with coronary angiography this morning which showed patent stented segment of the RCA, with recommendation to continue medical therapy. She is feeling much better. She has not had recurrence of chest pain or pressure. Blood pressure has been episodically elevated, and she will continue on her usual antihypertensives. She did have HCTZ discontinued previously due to concerns for kidney function. Instead we will get her started on hydralazine in addition to amlodipine, carvedilol, Imdur, lisinopril. Please follow-up and continue to optimize cardiovascular risk factors. Follow-up renal function. She is asked to follow-up for reassessment with cardiology as well. Physical Exam Narrative: Accompanied by her . Const: COMMON NORMALS: patient oriented x3 and alert GENERAL APPEARANCE: cooperative ORIENTATION/CONSCIOUSNESS: Yes awake HENMT: COMMON NORMALS: oropharynx normal Neck/C-Spine: COMMON NORMALS: no JVD Resp: COMMON NORMALS: normal respiratory effort and clear to auscultation bilaterally AUSCULTATION: clear to auscultation bilaterally Cardio: COMMON NORMALS: no JVD, regular rhythm, S1 normal heart sound present, S2 normal heart sound present and No murmurs present (Cardio) RHYTHM: regular rhythm HEART SOUNDS: S1 normal heart sound present and S2 normal heart sound present GI: COMMON NORMALS: Normal to inspection, nondistended, normoactive bowel sounds present, Soft to palpation and non-tender PALPATION: Yes Soft to palpation Extremity: COMMON NORMALS: no joint enlargement and no pedal edema OTHER: Wrist access site with bruising, no bleeding. Neuro: COMMON NORMALS: patient oriented x3 and moves all extremities SENSORIUM/ORIENTATION: Yes alert Skin: COMMON NORMALS: no rashes or lesions noted GENERAL SKIN EXAM: no rashes or lesions noted Discharge Data Studies Completed and Pending Completed Studies During Hospitalization Category Date Time Status Cardiac Stress Test MIBI [Sestamibi Stress Test Request Exams 11/13/24 21:18 Draft ] Routine XR chest 1V portable [id number] Stat Exams 11/13/24 06:33 Completed NM sanju perf SPECT r/s* [id number] Routine Nuc Med 11/14/24 08:00 Completed CV. echo complete* [id number] Routine Ultrasound 11/13/24 12:13 Completed Pending at discharge Category Date Time Status MARINE SERVICE OPERATOR request for service Routine Exams 11/14/24 16:13 Ordered Cardiac Stress Test MIBI [Sestamibi Stress Test Request Exams 11/13/24 21:18 Ordered ] Routine Complete Blood Count w/Auto AM LABS Lab 11/16/24 04:00 Ordered Comprehensive Metabolic Panel AM LABS Lab 11/16/24 04:00 Ordered Radiology Impressions Chest X-Ray 11/13/24 06:33 IMPRESSION: No acute findings. Laboratory Results WBC 5.38 10^3/uL (3.29-11.43) 11/15/24 03:57 RBC 3.30 10^6/uL (3.85-5.65) L 11/15/24 03:57 Hgb 9.50 g/dL (11.27-16.99) L 11/15/24 03:57 Hct 31.6 % (36-47) L 11/15/24 03:57 MCV 95.8 fl (85-98) 11/15/24 03:57 MCH 28.8 pg (27-33) 11/15/24 03:57 MCHC 30.1 g/dL (30-55) 11/15/24 03:57 RDW 13.2 % (12.1-15.1) 11/15/24 03:57 Plt Count 261 10^3/cmm (157-399) 11/15/24 03:57 MPV 9.9 fL (7.4-10.4) 11/15/24 03:57 Neut % (Auto) 69.2 % 11/15/24 03:57 Lymph % (Auto) 15.8 % 11/15/24 03:57 [place] % (Auto) 9.3 % 11/15/24 03:57 Eos % (Auto) 4.8 % 11/15/24 03:57 Baso % (Auto) 0.7 % 11/15/24 03:57 Neut # (Auto) 3.72 10^3/uL (1.8-7.7) 11/15/24 03:57 Lymph # (Auto) 0.9 10^3/uL (0.8-4.8) 11/15/24 03:57 [place] # (Auto) 0.5 10^3/uL (0.2-0.9) 11/15/24 03:57 Eos # (Auto) 0.3 10^3/uL (0.0-0.8) 11/15/24 03:57 Baso # (Auto) 0.0 10^3/uL (0.0-0.1) 11/15/24 03:57 Nucleated RBC % (auto) 0 % 11/15/24 03:57 Nucleated RBCs # 0.0 /100WBC 11/15/24 03:57 D-Dimer 0.41 ug/mLFEU (0-0.59) 11/14/24 08:35 Sodium 136 mmol/L (136-145) 11/15/24 03:57 Potassium 4.7 mmol/L (3.5-5.1) 11/15/24 03:57 Chloride 107 mmol/L (98-107) 11/15/24 03:57 Carbon Dioxide 18 mmol/L (22-29) L 11/15/24 03:57 Anion Gap 15.7 (5-19) 11/15/24 03:57 BUN 28 mg/dL (6-20) H 11/15/24 03:57 Creatinine 1.4 mg/dL (0.5-0.9) H 11/15/24 03:57 GFR Calculation 39.8 mL/min (90-130) L 11/15/24 03:57 Glucose 173 mg/dL (65-115) H 11/15/24 03:57 POC Glucose 161 mg/dL (70-110) H 11/15/24 06:03 Calculated Osmolality 292 mOsm/kg (285-295) 11/15/24 03:57 Calcium 8.7 mg/dL (8.5-10.5) 11/15/24 03:57 Total Bilirubin 0.2 mg/dL (0.15-1.2) 11/15/24 03:57 AST 18 U/L (0-32) 11/15/24 03:57 ALT 17 U/L (0-33) 11/15/24 03:57 Alkaline Phosphatase 93 U/L (35-105) 11/15/24 03:57 Troponin T Baseline 12 ng/L (0-10) H 11/13/24 06:45 Troponin T 120 Minute 10.08 ng/L (0-10) H 11/13/24 09:03 Delta Troponin T -1.92 ABS# (0-10) L 11/13/24 09:03 Troponin T Hi Sens 6Hr 9.76 ng/L (0-10) 11/13/24 12:51 Troponin T Hi Sens 6Hr Delta -2.24 ng/L (0-12) L 11/13/24 12:51 Total Protein 5.8 g/dL (6.6-8.7) L 11/15/24 03:57 Albumin 3.1 g/dL (3.5-5.2) L 11/15/24 03:57 Globulin 2.7 g/dL (1.3-4.6) 11/15/24 03:57 Urine Color Yellow (Yellow) 11/13/24 06:55 Urine Appearance Clear (CLEAR) 11/13/24 06:55 Urine pH 5.5 (5-7) 11/13/24 06:55 Ur Specific [place] 1.010 (1.005-1.030) 11/13/24 06:55 Urine Protein 2+ (Negative) A 11/13/24 06:55 Urine Glucose (UA) Negative (Normal) 11/13/24 06:55 Urine Ketones Negative (Negative) 11/13/24 06:55 Urine Blood Negative (Negative) 11/13/24 06:55 Urine Nitrate Negative (Negative) 11/13/24 06:55 Urine Bilirubin Negative (Negative) 11/13/24 06:55 Urine Urobilinogen 0.2 mg/dL (Negative) 11/13/24 06:55 Ur Leukocyte Esterase Trace (Negative) A 11/13/24 06:55 Urine RBC 0-2 /hpf (0-2) 11/13/24 06:55 Urine WBC 6-10 /hpf (0-5) 11/13/24 06:55 Ur Squamous Epith Cells 6-10 /hpf (0-5) 11/13/24 06:55 Amorphous Sediment Not Reportable 11/13/24 06:55 Urine Bacteria 1+ /hpf (NONE) H 11/13/24 06:55 Hyaline Casts 0-4 /lpf H 11/13/24 06:55 Coronavirus (PCR) Negative (Negative) 11/13/24 06:50 Influenza A (PCR) Negative (Negative) 11/13/24 06:50 Influenza Type B (PCR) Negative (Negative) 11/13/24 06:50 RSV (PCR) Negative (Negative) 11/13/24 06:50 Vitals Last Vital Signs Temp 98.3 F 11/15/24 04:00 Pulse 77 11/15/24 09:21 Resp 22 H 11/15/24 09:21 BP 171/87 11/15/24 09:21 Pulse Ox 99 11/15/24 04:00 O2 Del Method Room Air 11/15/24 04:00 Discharge Plan Discharge Patient Disposition: Home Condition: Stable Prescriptions: New hydralazine 25 mg tablet 25 mg PO TID Qty: 270 0RF Continued insulin aspart U-100 [Novolog FlexPen U-100 Insulin] 100 unit/mL (3 mL) insulin pen 5 unit SUBCUT TID 90 Days Qty: 15 5RF nitroglycerin [Nitrostat] 0.4 mg tablet, sublingual 0.4 mg sublingual Q5M PRN (Reason: chest pain) Qty: 30 6RF Rx Instructions: do not exceed 3 doses per episode (DME) OneTouch Ultra Test Strip See Rx Instructions .ROUTE .COMPLEX Qty: 100 11RF Dose Instruction: TEST DIRECTED FOR GLUCOSE MEASURING Rx Instructions: TEST DIRECTED FOR GLUCOSE MEASURING Brilinta 90 mg tablet 90 mg PO BID Qty: 180 3RF carvedilol 12.5 mg tablet 12.5 mg PO BID Qty: 180 3RF Lantus Solostar U-100 Insulin 100 unit/mL (3 mL) insulin pen 20 unit SUBCUT BEDTIME Qty: 15 0RF (DME) pen needle, diabetic [Pen Needle] 31 gauge x 5/16 needle See Rx Instructions .ROUTE .MEDSUPPLY Qty: 100 3RF Rx Instructions: As directed isosorbide mononitrate 60 mg tablet extended release 24 hr 60 mg PO DAILY atorvastatin 40 mg tablet 40 mg PO QPM Rx Instructions: TAKE 1 TABLET BY MOUTH ONCE DAILY AT BEDTIME FOR CHOLESTEROL/DIABETES amlodipine 10 mg tablet 10 mg PO DAILY Rx Instructions: Take 1 tablet by mouth once daily for blood pressure lisinopril 40 mg tablet 40 mg PO DAILY Rx Instructions: Take 1 tablet by mouth once daily Discontinued hydrochlorothiazide 25 mg tablet 25 mg PO DAILY Discharge Orders: Discharge Order (Routine); Ordered 11/15/24 Ordered By: Barrie Mcguire Referrals: Cassy Barrera NP [Nurse Practitioner] - 11/16/24 8:30 am Ning Fang FNP [Nurse Practitioner] - 11/23/24 8:30 am Discharge Diet: Cardiac Discharge Activity: Increase activity as tolerated Activity Restrictions/Additional Instructions: As discussed, bruising would be expected at the site of cardiac catheterization. Do not lift more than 2 pounds for 3 days, in case of pulsatile mass, bleeding, lack of perfusion/pale discoloration of the hand, pain or weakness, seek medical attention without delay. Continue to optimize cardiovascular risk factors to help reduce progression of coronary artery disease. Continue to monitor and optimize blood pressure control at home. Target blood pressure 120/80. Continue to optimize blood glucose control. Work with your primary doctor regarding weight loss options. Continue to treat cholesterol. Continue to follow-up regarding chronic kidney disease. Discharge Attestations Time Spent in Discharge Care*: greater than 30 min Quality Metrics Clinical Quality Measures [ No reported AMI, CVA or VTE this stay] Coding Level of Care Code 45880 Total time (in minutes) for Discharge: 50 Diagnoses Atherosclerotic heart disease of [place] coronary artery with other forms of angina pectoris I25.118 Primary hypertension I10 Hypertension type: primary hypertension Mixed hyperlipidemia E78.2 Hyperlipidemia type: mixed hyperlipidemia Type 2 diabetes mellitus with other ophthalmic complication, with long-term current use of insulin E11.39; Z79.4 Diabetes mellitus alf insulin use: with alf use Diabetes mellitus complication status: with ophthalmic complications Diabetes mellitus complication detail: with other ophthalmic complication CKD stage 3 secondary to diabetes E11.22; N18.30
[2024-11-15 10:17] VITALS: BP 171/87; PULSE 74; RESP 16; O2SAT 95
--- NOTE | 2024-11-15 10:58 | PC.NURSE ---
discharge instructions given and explained.pt verb understanding of instructions.discharge instructions given and explained.pt verb understanding of instructions
--- NOTE | 2024-11-15 12:00 | P.PN_ITS ---
Subjective 2 Subjective: Patient underwent a cardiac catheterization yesterday. She was found to have patent stented segment of the PDA. Mild diffuse disease in the other vessels. Based on the angiogram findings, it was opted to treat her medically. Vitals/I&O/Wt Last Vital Signs Temp 98.3 F 11/15/24 04:00 Pulse 74 11/15/24 10:17 Resp 16 11/15/24 10:17 BP 171/87 11/15/24 10:17 Pulse Ox 95 11/15/24 10:17 O2 Del Method Room Air 11/15/24 04:00 11/14/24 11/15/24 11/15/24 22:59 06:59 14:59 Intake Total 240 / 600 1250 / 1850 360 / 360 Output Total 0 / 0 Balance 240 / 600 1250 / 1850 360 / 360 Weight last 48 hrs Weight 182 lb 3 oz Weight 182 lb 3 oz Weight 182 lb 3 oz Physical Exam 2 Narrative: GENERAL: The patient is alert and oriented times three. Not in any acute distress. HEENT: No significant pallor, icterus or lymphadenopathy.Oral cavity: There are no mucous membrane lesions. NECK: Trachea appears to be central. No masses noted. No JVD or thyromegaly appreciated. RESPIRATORY: Chest is symmetrical. No intercostals muscle retraction or any accessory muscle activation. There is no chest wall tenderness. Breath sounds are heard bilaterally. No rales or rhonchi heard. No evidence of any consolidation. BREASTS: Deferred. HEART: The heart sounds are normal. No S3 or S4. No significant murmurs. No pericardial rub ABDOMEN: No vessel pulsations or distention. No tenderness. No organomegaly appreciated. Bowel sounds are normally heard. : Deferred. RECTAL: Deferred. LYMPHATIC: No lymphadenopathy noted in the neck. EXTREMITIES: No edema or cyanosis. No clubbing. MUSCULOSKELETAL: No acute joint deformities or swelling SKIN: Has no hematoma bleeding at the radial arterial puncture site. Good distal pulses. NEUROPSYCHIATRIC: The patient is alert and oriented x3. Appears to be in a good mood. No tremors or rigidity noted. Data 11/15/24 03:57 11/15/24 03:57 Other Labs: Laboratory Last Values WBC 5.38 10^3/uL (3.29-11.43) 11/15/24 03:57 RBC 3.30 10^6/uL (3.85-5.65) L 11/15/24 03:57 Hgb 9.50 g/dL (11.27-16.99) L 11/15/24 03:57 Hct 31.6 % (36-47) L 11/15/24 03:57 MCV 95.8 fl (85-98) 11/15/24 03:57 MCH 28.8 pg (27-33) 11/15/24 03:57 MCHC 30.1 g/dL (30-55) 11/15/24 03:57 RDW 13.2 % (12.1-15.1) 11/15/24 03:57 Plt Count 261 10^3/cmm (157-399) 11/15/24 03:57 MPV 9.9 fL (7.4-10.4) 11/15/24 03:57 Neut % (Auto) 69.2 % 11/15/24 03:57 Lymph % (Auto) 15.8 % 11/15/24 03:57 [place] % (Auto) 9.3 % 11/15/24 03:57 Eos % (Auto) 4.8 % 11/15/24 03:57 Baso % (Auto) 0.7 % 11/15/24 03:57 Neut # (Auto) 3.72 10^3/uL (1.8-7.7) 11/15/24 03:57 Lymph # (Auto) 0.9 10^3/uL (0.8-4.8) 11/15/24 03:57 [place] # (Auto) 0.5 10^3/uL (0.2-0.9) 11/15/24 03:57 Eos # (Auto) 0.3 10^3/uL (0.0-0.8) 11/15/24 03:57 Baso # (Auto) 0.0 10^3/uL (0.0-0.1) 11/15/24 03:57 Nucleated RBC % (auto) 0 % 11/15/24 03:57 Nucleated RBCs # 0.0 /100WBC 11/15/24 03:57 D-Dimer 0.41 ug/mLFEU (0-0.59) 11/14/24 08:35 Sodium 136 mmol/L (136-145) 11/15/24 03:57 Potassium 4.7 mmol/L (3.5-5.1) 11/15/24 03:57 Chloride 107 mmol/L (98-107) 11/15/24 03:57 Carbon Dioxide 18 mmol/L (22-29) L 11/15/24 03:57 Anion Gap 15.7 (5-19) 11/15/24 03:57 BUN 28 mg/dL (6-20) H 11/15/24 03:57 Creatinine 1.4 mg/dL (0.5-0.9) H 11/15/24 03:57 GFR Calculation 39.8 mL/min (90-130) L 11/15/24 03:57 Glucose 173 mg/dL (65-115) H 11/15/24 03:57 POC Glucose 161 mg/dL (70-110) H 11/15/24 06:03 Calculated Osmolality 292 mOsm/kg (285-295) 11/15/24 03:57 Calcium 8.7 mg/dL (8.5-10.5) 11/15/24 03:57 Total Bilirubin 0.2 mg/dL (0.15-1.2) 11/15/24 03:57 AST 18 U/L (0-32) 11/15/24 03:57 ALT 17 U/L (0-33) 11/15/24 03:57 Alkaline Phosphatase 93 U/L (35-105) 11/15/24 03:57 Troponin T Baseline 12 ng/L (0-10) H 11/13/24 06:45 Troponin T 120 Minute 10.08 ng/L (0-10) H 11/13/24 09:03 Delta Troponin T -1.92 ABS# (0-10) L 11/13/24 09:03 Troponin T Hi Sens 6Hr 9.76 ng/L (0-10) 11/13/24 12:51 Troponin T Hi Sens 6Hr Delta -2.24 ng/L (0-12) L 11/13/24 12:51 Total Protein 5.8 g/dL (6.6-8.7) L 11/15/24 03:57 Albumin 3.1 g/dL (3.5-5.2) L 11/15/24 03:57 Globulin 2.7 g/dL (1.3-4.6) 11/15/24 03:57 Urine Color Yellow (Yellow) 11/13/24 06:55 Urine Appearance Clear (CLEAR) 11/13/24 06:55 Urine pH 5.5 (5-7) 11/13/24 06:55 Ur Specific [place] 1.010 (1.005-1.030) 11/13/24 06:55 Urine Protein 2+ (Negative) A 11/13/24 06:55 Urine Glucose (UA) Negative (Normal) 11/13/24 06:55 Urine Ketones Negative (Negative) 11/13/24 06:55 Urine Blood Negative (Negative) 11/13/24 06:55 Urine Nitrate Negative (Negative) 11/13/24 06:55 Urine Bilirubin Negative (Negative) 11/13/24 06:55 Urine Urobilinogen 0.2 mg/dL (Negative) 11/13/24 06:55 Ur Leukocyte Esterase Trace (Negative) A 11/13/24 06:55 Urine RBC 0-2 /hpf (0-2) 11/13/24 06:55 Urine WBC 6-10 /hpf (0-5) 11/13/24 06:55 Ur Squamous Epith Cells 6-10 /hpf (0-5) 11/13/24 06:55 Amorphous Sediment Not Reportable 11/13/24 06:55 Urine Bacteria 1+ /hpf (NONE) H 11/13/24 06:55 Hyaline Casts 0-4 /lpf H 11/13/24 06:55 Coronavirus (PCR) Negative (Negative) 11/13/24 06:50 Influenza A (PCR) Negative (Negative) 11/13/24 06:50 Influenza Type B (PCR) Negative (Negative) 11/13/24 06:50 RSV (PCR) Negative (Negative) 11/13/24 06:50 A&P Assessment and plan (1) Atherosclerotic heart disease of [place] coronary artery with other forms of angina pectoris: Angiogram findings as mentioned above. Patient may continue on the current medications. (2) Hypertension: Continue on the current medications. Qualifiers: Hypertension type: primary hypertension Qualified Code(s): I10 - Essential (primary) hypertension (3) Hyperlipidemia: May continue on the current medication. Qualifiers: Hyperlipidemia type: mixed hyperlipidemia Qualified Code(s): E78.2 - Mixed hyperlipidemia (4) Type 2 diabetes mellitus: Aggressive management of the diabetes would be appropriate Qualifiers: Diabetes mellitus complication detail: with other ophthalmic complication Diabetes mellitus complication status: with ophthalmic complications Diabetes mellitus supervisor intermediates insulin use: with supervisor intermediates use Q ualified Code(s): E11.39 - Type 2 diabetes mellitus with other diabetic ophthalmic complication; Z79.4 - FDC (current) use of insulin (5) CKD stage 3 secondary to diabetes: Patient will be carefully hydrated. Continue oral hydration at home. Plan Appointment the [facility] in 1 week to be seen by nurse practitioner. Repeat BMP in the office to follow-up on the kidney function May continue on the other current medications as it these I may see him in the office in a month PDMP PDMP Reviewed: Not Reviewed Attestations 2 Medical Necessity Statement*: Discharge home today Coding Level of Care Code Acute Code for [facility] Fwd Diagnoses Atherosclerotic heart disease of [place] coronary artery with other forms of angina pectoris I25.118 Primary hypertension I10 Hypertension type: primary hypertension Mixed hyperlipidemia E78.2 Hyperlipidemia type: mixed hyperlipidemia Type 2 diabetes mellitus with other ophthalmic complication, with long-term current use of insulin E11.39; Z79.4 Diabetes mellitus complication detail: with other ophthalmic complication Diabetes mellitus complication status: with ophthalmic complications Diabetes mellitus supervisor intermediates insulin use: with mcc use CKD stage 3 secondary to diabetes E11.22; N18.30
== END 2024-11-15 11:00 | disposition home or self-care (01) ==
LOC: ER 06:37 → ER IP 11:20 → CSU 16:24
PROVIDERS: Internal Medicine Cardiovascular Disease; Admitting Provider Internal Medicine; Emergency Provider Family Medicine; PCP Pediatrics; Visit Provider Internal Medicine
DX: I25.110 Atherosclerotic heart disease of native coronary artery with unstable angina pectoris (principal); E11.319 Type 2 diabetes mellitus with unspecified diabetic retinopathy without macular edema; E11.22 Type 2 diabetes mellitus with diabetic chronic kidney disease; N18.30 Chronic kidney disease, stage 3 unspecified; Z79.899 Other long term (current) drug therapy; Z79.4 Long term (current) use of insulin; E66.9 Obesity, unspecified; Z68.33 Body mass index [BMI] 33.0-33.9, adult; I25.10 Atherosclerotic heart disease of native coronary artery without angina pectoris; Z95.5 Presence of coronary angioplasty implant and graft; Z90.49 Acquired absence of other specified parts of digestive tract; Z87.891 Personal history of nicotine dependence; Z11.52 Encounter for screening for COVID-19; I12.9 Hypertensive chronic kidney disease with stage 1 through stage 4 chronic kidney disease, or unspecified chronic kidney disease; E78.2 Mixed hyperlipidemia
CPT/HCPCS: 36415; 36416; 71045; 78452; 80053; 81001; 82962; 84484; 85025; 85378; 87637; 93005; 93017; 93306; 93458; 96372; 96374; 96375; 96376; 99152; 99153; 99285; A9270; A9500; C1769; C1887; C1894; G0378; J1200; J1644; J1650; J1815; J2250; J2470; J2785; J3010; J3490; J7030; Q9967

== ENCOUNTER → 2024-11-23 09:05 | Outpatient (BNVA) | payer BC, MEDICAID, SELFPAY | PROVIDERS: PCP Pediatrics; Visit Provider Nurse Practitioner Family | DX: I25.118 Atherosclerotic heart disease of native coronary artery with other forms of angina pectoris (principal) | CPT/HCPCS: 36415; 80048 ==

== ENCOUNTER → 2024-12-04 09:14 | Outpatient (BNVA) | payer BC, MEDICAID, SELFPAY | PROVIDERS: PCP Family Medicine; Visit Provider Family Medicine | DX: Z79.4 Long term (current) use of insulin (principal); I25.118 Atherosclerotic heart disease of native coronary artery with other forms of angina pectoris; I10 Essential (primary) hypertension; E78.2 Mixed hyperlipidemia; E55.9 Vitamin D deficiency, unspecified; E11.22 Type 2 diabetes mellitus with diabetic chronic kidney disease; N18.30 Chronic kidney disease, stage 3 unspecified; D64.9 Anemia, unspecified | CPT/HCPCS: 80053; 82270; 82607; 83036; 83540; 83880; 85025 ==

== ENCOUNTER 2025-01-02 09:43 | Day surgery (SDC) | payer BC, MEDICAID, SELFPAY ==
[2025-01-02 09:56] VITALS: BMI 35.6
[2025-01-02 10:01] VITALS: BP 135/69; RESP 18; TEMP 36.6; O2SAT 98
[2025-01-02 10:07] LABS: OR HCG Qualitative Urine Negative (Negative)
--- NOTE | 2025-01-02 10:12 | ANES.PREANE2 ---
Pre-Anesthetic Assessment Height/Weight: Height 1.57 m Weight 88.451 kg Temp Resp BP Pulse Ox 97.9 F 18 135/69 98 01/02/25 10:01 01/02/25 10:01 01/02/25 10:01/02/25 10:01 Preop Diagnosis: heartburn, screening Operation Date: 01/02/25 11:00 Proposed Procedures p EGD [id number] G0121 Z12.11(Not Applicable) - Yasmany Mayer MD s Colonoscopy(Not Applicable) - Yasmany Mayer MD Was Beta Beau taken within 24 hours: Yes Was Clonidine taken within 24 hours: N/A Last intake: Intake Last Liquid Date 01/01/25 Last Liquid Time 19:00 Last Solid Date 12/31/24 Last Solid Time 20:00 Social No alcohol and No tobacco Exam alert and oriented x 3 Airway Submandibular: within normal limits Cervical ROM: within normal limits Mallampati: Class II Dentition: full History/ROS No significant history except as noted Pulmonary None reported CV/HEM Hypertension and Myocardial Infarction (stent placed in 2018; denies CP since cath in Nov 2024; does not need NTG ever) Chronic Renal Insufficiency Stage 3 CKD Hepatic None reported GI Gastroesophageal Reflux Disease Metabolic Diabetes Mellitus and Hyperlipidemia [facility] None reported Neuropsych None reported Anesthetic Plan ASA status: 3 Anesthesia: MAC Risk of > 500 ml blood loss (7ml/kg in children): No Medications/Allergies Home Medications ?Medication ?Instructions ?Recorded ?Confirmed ?Last Taken ?Type nitroglycerin 0.4 mg sublingual 0.4 mg sublingual Q5M PRN chest 11/03/23 12/27/24 Unknown Rx tablet (Nitrostat) pain #30 tabs carvedilol 12.5 mg tablet 12.5 mg PO BID heart/blood 10/19/24 12/27/24 01/02/25 08:00 Rx pressure #180 tabs amlodipine 10 mg tablet 10 mg PO DAILY 11/13/24 12/27/24 01/02/25 08:00 History atorvastatin 40 mg tablet 40 mg PO QPM 11/13/24 12/27/24 12/27/24 History isosorbide mononitrate 60 mg 60 mg PO DAILY 11/13/24 12/27/24 01/02/25 08:00 History tablet,extended release 24 hr lisinopril 40 mg tablet 40 mg PO DAILY 11/13/24 12/27/24 12/27/24 History pen needle, diabetic 31 gauge x #100 ea 11/13/24 12/27/24 Unknown Rx 02/16 (Pen Needle) hydralazine 25 mg tablet 25 mg PO TID #84 tabs 11/23/24 12/27/24 12/27/24 Rx insulin glargine 100 unit/mL (3 20 unit (0.2 mL) SUBCUT BEDTIME 11/27/24 12/27/24 12/27/24 Rx mL) subcutaneous pen (Lantus #15 mL Solostar U-100 Insulin) Held on 12/05/24. Instructions: Doctor's Order aspirin 81 mg tablet,delayed 81 mg PO DAILY 12/04/24 12/27/24 12/27/24 History release (Adult Low Dose Aspirin) cholecalciferol (vitamin D3) 125 125 mcg PO DAILY #90 caps 12/04/24 12/27/24 12/27/24 Rx mcg (5,000 unit) capsule empagliflozin 25 mg tablet 25 mg PO QAM #30 tabs 12/05/24 12/27/24 12/27/24 Rx blood sugar diagnostic (OneTouch #100 ea 12/12/24 12/27/24 Unknown Rx Ultra Test strips) Allergies Allergy/AdvReac Type Severity Reaction Status Date / Time No Known Allergies Allergy Verified 01/02/25 09:59 [facility] Anesthesia Medical History Vitamin D deficiency Anemia of unknown etiology Fatigue Obesity (BMI 30-39.9) 2007 weight 400 pounds CKD stage 3 secondary to diabetes Macular degeneration of both eyes Diabetic retinopathy associated with uncontrolled type 2 diabetes mellitus Hypertension Hyperlipidemia CAD (coronary artery disease) single stent 2018; cardiac cath 11/28--no intervention Surgical History Hx of cardiac cath 2.11.25 [facility]--no intervention; CAD present S/P cataract surgery bilateral Hx of coronary angioplasty (~09/2019) and one stent 2018--in [place] Hx of cholecystectomy (~09/2008) Hx of section X 2 Family History Father Diabetes Hypertension Hyperlipidemia Congestive heart failure (CHF) Mother Lung disease asthma and due to copd Hypertension Denies family history of CAD (coronary artery disease) Clotting disorder Dementia Anesthesia complication Bleeding disorder Cancer Stroke Social History Smoking and tobacco/nicotine status: never used tobacco/nicotine Quit status (tobacco/nicotine): has quit using Year quit tobacco: 1997 Former quit date comment: smoked 0.5 PPD x 3 yrs Second hand smoke exposure: No Alcohol intake: never Substance/Drug Use: never Caregiver/support person: Yes Lives independently: Yes Household members: significant other and other Details: all 3 kids at home still Marital status: Life Partner Number of children: 3 Number of grandchildren: 0 Highest education level completed: High School Graduate service: No Current occupational status: unemployed 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
[2025-01-02] MEDS: sodium chloride 0.9% 1,000 ML 30 ML IV (10:14)
[2025-01-02 10:17] LABS: Glucose Point of Care 81 mg/dL (70-110)
--- NOTE | 2025-01-02 10:19 | W.PM.OPSUD ---
Surgery/Procedure H&P Update DATE OF PROCEDURE: January 02, 2025 DATE H&P PERFORMED: 12/22/24 H&P UPDATE INFORMATION: I have reviewed H&P completed within last 30 days, I have examined patient prior to procedure and No changes to prior documentation PREOP DIAGNOSIS: heartburn, screening PLANNED PROCEDURE: Operation Date: 01/02/25 11:00 Proposed Procedures p EGD [id number] G0121 Z12.11(Not Applicable) - Yasmany Mayer MD s Colonoscopy(Not Applicable) - Yasmany Mayer MD
[2025-01-02 10:45] VITALS: BP 97/52; PULSE 62; RESP 18; TEMP 36.1; O2SAT 96
--- NOTE | 2025-01-02 11:20 | ANE.PACU2 ---
Inpatient post-anesthesia follow up: Airway intact: Yes Vital signs: Temperature 97.0 F Pulse Rate 62 Respiratory Rate 18 Blood Pressure 97/52 Pulse Oximetry 96 Oxygen Delivery Me thod Room Air Oxygen Flow Rate Fraction of Inspir ed Oxygen Hydration adequate: Yes Nausea and vomiting: No Pain level: 1 Mental status: Baseline
== END 2025-01-02 11:20 | disposition home or self-care (01) ==
PROVIDERS: Anesthesiology; PCP Family Medicine; Visit Provider Student in an Organized Health Care Education/Training Program
PROC: 0DJ08ZZ Inspection of Upper Intestinal Tract, Via Natural or Artificial Opening Endoscopic (ICD-10-PCS; principal; 2025-01-02 11:00)
PROC: 0DJD8ZZ Inspection of Lower Intestinal Tract, Via Natural or Artificial Opening Endoscopic (ICD-10-PCS; CPT 45378; 2025-01-02 11:00)
DX: Z12.11 Encounter for screening for malignant neoplasm of colon (principal); I12.9 Hypertensive chronic kidney disease with stage 1 through stage 4 chronic kidney disease, or unspecified chronic kidney disease; K29.30 Chronic superficial gastritis without bleeding; N18.30 Chronic kidney disease, stage 3 unspecified; E11.22 Type 2 diabetes mellitus with diabetic chronic kidney disease; E78.5 Hyperlipidemia, unspecified; K21.9 Gastro-esophageal reflux disease without esophagitis; K29.80 Duodenitis without bleeding; Z79.899 Other long term (current) drug therapy; Z79.82 Long term (current) use of aspirin; Z79.4 Long term (current) use of insulin; I25.10 Atherosclerotic heart disease of native coronary artery without angina pectoris; Z90.49 Acquired absence of other specified parts of digestive tract; Z87.891 Personal history of nicotine dependence; I25.2 Old myocardial infarction; Z95.5 Presence of coronary angioplasty implant and graft
CPT/HCPCS: 36416; 43239; 45378; 81025; 82962; 88305; 88342; J2704; J7030

== ENCOUNTER → 2025-03-06 08:10 | Outpatient (BNVA) | payer BC, MEDICAID, SELFPAY | PROVIDERS: PCP Family Medicine; Visit Provider Family Medicine | DX: I10 Essential (primary) hypertension (principal); D64.9 Anemia, unspecified; I25.118 Atherosclerotic heart disease of native coronary artery with other forms of angina pectoris; E11.39 Type 2 diabetes mellitus with other diabetic ophthalmic complication; E11.22 Type 2 diabetes mellitus with diabetic chronic kidney disease; N18.30 Chronic kidney disease, stage 3 unspecified; Z79.4 Long term (current) use of insulin | CPT/HCPCS: 80053; 82043; 83036; 85025 ==

== ENCOUNTER 2025-03-15 11:19 | Outpatient (CLI) | payer BC, MEDICAID, SELFPAY ==
[2025-03-15 11:55] LABS: Anion Gap 17.1 (5-19); Blood Urea Nitrogen 30 mg/dL (6-20); Calcium 8.8 mg/dL (8.5-10.5); Carbon Dioxide 20 mmol/L (22-29); Chloride 103 mmol/L (98-107); Glomerular Filtration Rate 31.8 mL/min (90-130); Glucose 138 mg/dL (65-115); Osmolality Calculated 288 mOsm/kg (285-295); Potassium 5.1 mmol/L (3.5-5.1); Sodium 135 mmol/L (136-145)
== END 2025-03-15 11:20 | disposition home or self-care (01) ==
PROVIDERS: PCP Family Medicine; Visit Provider Family Medicine
DX: E11.22 Type 2 diabetes mellitus with diabetic chronic kidney disease (principal); N18.30 Chronic kidney disease, stage 3 unspecified; I10 Essential (primary) hypertension
CPT/HCPCS: 36415; 80048

== ENCOUNTER 2025-03-22 12:20 | Outpatient (CLI) | payer BC, MEDICAID, SELFPAY ==
[2025-03-22 13:11] LABS: Anion Gap 17.4 (5-19); Blood Urea Nitrogen 36 mg/dL (6-20); Calcium 9.2 mg/dL (8.5-10.5); Carbon Dioxide 20 mmol/L (22-29); Chloride 104 mmol/L (98-107); Glomerular Filtration Rate 29.8 mL/min (90-130); Glucose 161 mg/dL (65-115); Osmolality Calculated 294 mOsm/kg (285-295); Potassium 5.4 mmol/L (3.5-5.1); Sodium 136 mmol/L (136-145)
== END 2025-03-22 12:21 | disposition home or self-care (01) ==
LOC: LAB 12:21
PROVIDERS: PCP Family Medicine; Visit Provider Family Medicine
DX: I10 Essential (primary) hypertension (principal); E11.22 Type 2 diabetes mellitus with diabetic chronic kidney disease; N18.30 Chronic kidney disease, stage 3 unspecified
CPT/HCPCS: 36415; 80048

== ENCOUNTER → 2025-04-20 14:48 | Outpatient (BNVA) | payer BC, MEDICAID, SELFPAY | PROVIDERS: PCP Family Medicine; Visit Provider Family Medicine | DX: I10 Essential (primary) hypertension (principal); E11.39 Type 2 diabetes mellitus with other diabetic ophthalmic complication; Z79.4 Long term (current) use of insulin; E11.22 Type 2 diabetes mellitus with diabetic chronic kidney disease; N18.30 Chronic kidney disease, stage 3 unspecified | CPT/HCPCS: 80048 ==

== ENCOUNTER → 2025-05-03 15:39 | Outpatient (BNVA) | payer BC, MEDICAID, SELFPAY | PROVIDERS: PCP Family Medicine; Visit Provider Family Medicine | DX: Z12.4 Encounter for screening for malignant neoplasm of cervix (principal) | CPT/HCPCS: 87624 ==

== ENCOUNTER → 2025-06-11 13:12 | Outpatient (BNVA) | payer BC, MEDICAID, SELFPAY | PROVIDERS: PCP Family Medicine; Visit Provider Family Medicine | DX: E11.39 Type 2 diabetes mellitus with other diabetic ophthalmic complication (principal); Z79.4 Long term (current) use of insulin | CPT/HCPCS: 83036 ==